=== PATIENT | female | born 1955 | race Caucasian/White ===

== ENCOUNTER → 2017-03-28 12:29 | Outpatient (CLI) | payer OTHER, SELFPAY ==
--- NOTE | 2017-03-28 | US_ITS ---
US abdomen limited: INDICATION: ITS.REASON: ABD WALL MASS ORDERING PHYSICIAN: Braydon Nelson MD PATIENT AGE: 61 years FINDINGS: There is an oval homogeneous area of isoechogenicity in the left mid abdominal wall corresponding to the palpable abnormality measuring approximately 3 x 3.4 cm and 1.2 cm in thickness. This likely consistent with a lipoma. No other significant anomalies are evident. IMPRESSION: Palpable abnormality of the left anterior abdominal wall consistent with a lipoma and could be confirmed with CT if clinically warranted.
== END ==
PROVIDERS: Family Provider Family Medicine; PCP Family Medicine; Visit Provider Family Medicine
DX: R22.2 Localized swelling, mass and lump, trunk (principal)
CPT/HCPCS: 76705

== ENCOUNTER → 2017-05-16 16:32 | Outpatient (CLI) | payer OTHER, SELFPAY ==
--- NOTE | 2017-05-16 16:35 | MM_ITS ---
MM Dig screening mamm BI w/CAD CAD Screening ORDERING PHYSICIAN : Darshan Lew MD PATIENT AGE: 61 years GENDER: Female COMPARISON: Previous mammograms: May 09, 2016 May 10, 2015 May 09, 2014 HISTORY of breast cancer right breast DCIS segmental mastectomy 2009 No hormones no new complaints . Family history. 2 Paternal grade aunts . 7 cousin relation TECHNIQUE: Standard CC and MLO images were obtained. R2 CAD reviewed. FINDINGS: Lower density breast. RIGHT BREAST:Postsurgical changes are evident at the lateral right breast 10 o'clock position. Findings here are unchanged since previous studies no new areas of concern. LEFT BREAST a small nodular density at the 8 o'clock position left breast has been previously noted Since at least 2014 and 2015 It appears incrementally larger , up to 1 mm larger today measuring just over 7 mm. Appear to be debris-filled cyst with through transmission on previous ultrasound from 2017 however with generous internal echoes and because of this I would recommend a follow-up ultrasound of this area and lobulated contour . === IMPRESSION: ====== 1. LEFT BREAST Small nodular density again seen 8 o'clock position. Incremental larger on today's mammogram.. There is been noted on previous ultrasound and mammograms dating back to 2014. Most likely debris-filled cyst which is slowly enlarging. However given its lobulated contour & significant internal echogenicity on previous ultrasound studies recommend further evaluation particularly in this higher risk patient. Recommend MLO and cc spot views with follow-up ultrasound. Left breast 2. Right breast stable no interval change. Follow up one year on right BI-RADS Category: 0 Need Additional Imaging Evaluaiton. RECOMMENDED FOLLOW-UP: IMM - IMMEDIATE FOLLOW-UP RECOMMENDED Spot view and ultrasound left breast nodule (A letter has been sent to the patient regarding results of the study.) In
--- NOTE | 2017-05-16 16:41 | XR_ITS ---
XR DEXA axial skeleton HISTORY: ITS.REASON: SCREENING ORDERING PHYSICIAN: Darshan Lew MD PATIENT AGE: 61 years COMPARISON: 07/07/2015 FINDINGS: The BMD measured at the Right femoral neck is 0.819 g/cm squared with a T score of -1.6 . This is considered Osteopenic according to the World Health Organization criteria. Fracture risk is Moderate. Treatment is advised. The L1-L4 density has a T score of 0.1 and has increased by 1% compared to the previous exam. The hip density is essentially unchanged IMPRESSION: Osteopenia with moderate fracture risk. Recommend follow-up exam April 2019
== END ==
PROVIDERS: Family Provider Family Medicine; PCP Family Medicine; Visit Provider Internal Medicine
DX: Z12.31 Encounter for screening mammogram for malignant neoplasm of breast (principal); Z78.0 Asymptomatic menopausal state; Z13.820 Encounter for screening for osteoporosis
CPT/HCPCS: 77067; 77080

== ENCOUNTER → 2017-06-05 14:19 | Outpatient (CLI) | payer OTHER, SELFPAY ==
--- NOTE | 2017-06-05 14:23 | MM_ITS ---
MM Dig mamm DX unilat LT CAD COMPARISON: Digital bilateral mammograms 05/16/2017 and 05/13/2016 INDICATION: Possible interval enlargement of asymmetric density left breast TECHNIQUE: Spot compression MLO and CC views and 90 degrees lateral view FINDINGS: The density previously described just deep and medial to the nipple left breast shows fairly well-defined borders except for a small focal irregularity. It has shown slight interval increase in size. Ultrasound performed the same date showed a hypoechoic lesion with multiple tiny internal echoes. Though the features are primarily benign on the spot mammogram views and repeat ultrasound the interval enlargement and somewhat unusual appearance on ultrasound and the patient's known contralateral breast cancer suggest that biopsy should be performed which could probably be done with ultrasound guidance. IMPRESSION: Likely benign but somewhat indeterminate asymmetric density left breast with interval enlargement BI-RADS Category: 4 Suspicious Abnormality-Biopsy Considered RECOMMENDED FOLLOW-UP: BIO - BIOPSY RECOMMENDED (A letter has been sent to the patient regarding results of the study.)
--- NOTE | 2017-06-05 14:24 | US_ITS ---
US breast LT complete COMPARISON: Ultrasound left breast 05/13/2016 HISTORY: Possible interval enlargement of asymmetric density on recent mammogram TECHNIQUE: Targeted ultrasound left breast especially lower inner quadrant FINDINGS: The previously noted oval hypoechoic lesion is again seen at the 8:00 position near the nipple showing somewhat curious tiny echogenic foci within the lesion. This could be a debris-filled cyst but in view of the contralateral breast cancer and interval increase in size biopsy is recommended which could probably be performed with ultrasound guidance IMPRESSION: Slight interval increase in size of increased hypoechoic lesion left breast, recommend follow-up biopsy
== END ==
PROVIDERS: Family Provider Family Medicine; PCP Family Medicine; Visit Provider Internal Medicine
DX: R92.8 Other abnormal and inconclusive findings on diagnostic imaging of breast (principal)
CPT/HCPCS: 76641; 77065

== ENCOUNTER 2017-06-16 10:14 | Outpatient (CLI) | payer OTHER, SELFPAY ==
[2017-06-16 10:30] VITALS: BP 150/96; PULSE 78; RESP 18; TEMP 36.8; O2SAT 99
== END 2017-06-16 10:30 | disposition home or self-care (01) ==
LOC: INF 10:14
PROVIDERS: Family Provider Family Medicine; PCP Family Medicine; Visit Provider Nurse Practitioner Obstetrics & Gynecology
DX: M85.89 Other specified disorders of bone density and structure, multiple sites (principal)
CPT/HCPCS: 96372; J0897

== ENCOUNTER → 2017-06-20 08:47 | Outpatient (POV) | payer OTHER, SELFPAY | PROVIDERS: PCP Family Medicine; Visit Provider Otolaryngology | DX: Z00.00 Encounter for general adult medical examination without abnormal findings (principal) ==

== ENCOUNTER → 2017-06-21 09:34 | Outpatient (CLI) | payer OTHER, SELFPAY ==
--- NOTE | 2017-06-21 | MM_ITS ---
US organ site (breast, US breast cyst asp, US breast LT complete MM clip placement LT COMPARISON: 06/05/2017 INDICATION: Left breast nodule ORDERING PHYSICIAN: Darshan Lew MD PATIENT AGE: 61 years Prebiopsy ultrasound: Persistent complex hypoechoic nodule is present at 8:00 measuring 8 x 4 mm. TECHNIQUE: Following obtaining informed consent using aseptic technique and local anesthesia with 1% lidocaine a 20-gauge needle was inserted under sonographic guidance into the nodule which was aspirated but not completely. The patient elected to have the nodule removed by mammotome.. The breast lesion was therefore obtained with lidocaine mixed with epinephrine. A dermotomy was then performed an 8 gauge mammotomy needle inserted. Multiple mammotome biopsies were obtained. A clip was placed following the biopsy. The patient tolerated the procedure well without evidence of any complication. Cytology: Negative for malignancy. Apicrine metaplasia compatible with benign cyst contents Pathology: Benign breast with cystic apocrine metaplasia showing papillary hyperplasia. Negative for microcalcifications. Negative for carcinoma Postbiopsy mammogram: Post biopsy changes and a clip is present in the lower inner aspect of the left breast in the area of concern where there was once a nodule. Nodule is not evident at this time IMPRESSION: Successful FNA and ultrasound-guided mammotomy biopsy of the left breast showing benign findings BI-RADS Category: 2 Benign Finding(s) RECOMMENDED FOLLOW-UP: 6M - 6 MONTH FOLLOW-UP mammogram and ultrasound per routine post biopsy protocol (A letter has been sent to the patient regarding results of the study.)
== END ==
PROVIDERS: Family Provider Family Medicine; PCP Family Medicine; Visit Provider Internal Medicine
DX: R92.8 Other abnormal and inconclusive findings on diagnostic imaging of breast (principal); N63.20 Unspecified lump in the left breast, unspecified quadrant
CPT/HCPCS: 19083; 76641; 76942; 77065; C2618

== ENCOUNTER → 2017-07-18 12:57 | Outpatient (CLI) | payer OTHER, SELFPAY ==
--- NOTE | 2017-07-18 13:25 | CT_ITS ---
CT chest w con HISTORY: Breast cancer with pulmonary nodules, follow-up pulmonary nodules, evaluate for metastatic disease ORDERING PHYSICIAN: Darshan Lew MD PATIENT AGE: 61 years COMPARISON: 01/19/2017, 07/08/2015 TECHNIQUE: Axial images obtained following the administration of 75 mL of Isovue 370 . Sagittal, and coronal reformatted images are also generated and reviewed. All CT scans at the facility use one or more dose reduction, viz: automated exposure control; ma/kV adjustment per patient size (including targeted exams where dose is matched to indication; i.e. head); or iterative reconstruction technique. FINDINGS: No mediastinal or hilar mass or adenopathy. Surgical clips once again noted in the paratracheal region. Stable bilateral noncalcified and calcified pulmonary nodules once again noted. No new nodules or effusions or infiltrates. No acute bony anomalies. Upper abdominal images are unremarkable. IMPRESSION: Overall stable CT appearance of the chest. Stable small bilateral noncalcified and calcified pulmonary nodules with no new nodules apparent
== END ==
PROVIDERS: Family Provider Family Medicine; PCP Family Medicine; Visit Provider Internal Medicine
DX: R91.8 Other nonspecific abnormal finding of lung field (principal); C50.911 Malignant neoplasm of unspecified site of right female breast; E03.9 Hypothyroidism, unspecified; R94.5 Abnormal results of liver function studies
CPT/HCPCS: 71260; Q9967

== ENCOUNTER → 2017-12-13 13:54 | Outpatient (CLI) | payer OTHER, SELFPAY ==
--- NOTE | 2017-12-13 13:56 | US_ITS ---
MM Dig mamm DX unilat LT CAD, US breast LT complete INDICATION: Follow-up breast biopsy, follow-up breast nodule ORDERING PHYSICIAN: Kathya Brooks PATIENT AGE: 62 years COMPARISON: 06/05/2017, 05/16/2017 TECHNIQUE: Standard images performed along with spot compression views and left breast ultrasound FINDINGS: Average fibroglandular tissue. Previously noted nodular density in the medial aspect of the left breast is less apparent status post biopsy with biopsy clip in this region. No malignant appearing mass or malignant appearing microcalcification is evident. On the cc spot compression view there is a 3 mm nodule slightly medial within the left breast and may correspond to a hypoechoic nodule noted on ultrasound at 12:00. Left breast ultrasound: Previously noted nodule at o'clock is not identified. This was the area of the previous biopsy. There is a 4 mm hypoechoic nodule at 12:00 probably benign.. IMPRESSION: Previously noted nodule at 8:00 no longer apparent by ultrasound. 3 mm nodule slightly medial within the left breast and may correspond to a hypoechoic nodule noted at 12:00 with benign features. Recommend resume screening mammogram in April 2018 BI-RADS Category: 2 Benign Finding(s) RECOMMENDED FOLLOW-UP: 6M - 6 MONTH FOLLOW-UP (A letter has been sent to the patient regarding results of the study.)
== END ==
PROVIDERS: PCP Family Medicine; Visit Provider Nurse Practitioner
DX: C50.919 Malignant neoplasm of unspecified site of unspecified female breast (principal)
CPT/HCPCS: 76641; 77065

== ENCOUNTER → 2018-05-12 08:21 | Outpatient (CLI) | payer OTHER, SELFPAY ==
[2018-05-12 10:25] LABS: Alanine Aminotransferase 30 U/L (12-78); Albumin Level 3.9 gm/dL (3.4-5.0); Albumin/Globulin Ratio 1.2 (1.1-1.8); Alkaline Phosphatase 113 U/L (46-116); Anion Gap 15.3 mEq/L (5-15); Aspartate Amino Transferase 20 U/L (15-37); Bilirubin,Total 0.4 mg/dL (0.2-1.0); Blood Urea Nitrogen 14 mg/dL (7-18); Calcium 8.7 mg/dL (8.5-10.1); Carbon Dioxide 30 mmol/L (21.0-32.0); Chloride 105 mmol/L (98-107); Chol/HDL Ratio 4.3 (1-3.5); Cholesterol 197 mg/dL (140-200); Estimated Glomerular Filt Rate 102 ml/min (>60); Free T4 (Free Thyroxine) 1.13 ng/dl (0.76-1.46); GFR (African American) 123 ML/MIN (>60); Globulin 3.3 gm/dl (1.3-3.2); Glucose 96 mg/dL (74-106); HDL Cholesterol 46 mg/dL (29-89); LDL Cholesterol 105 mg/dL (0-130); Potassium 4.3 mmoL/L (3.5-5.1); Sodium 146 mmol/L (136-145); Thyroid Stimulating Hormone 1.84 uIU/ml (0.358-3.740); Total Protein,Serum 7.2 gm/dL (6.4-8.2); Triglycerides 232 mg/dL (30-200); VLDL Cholesterol 46 mg/dL (0-40)
== END ==
PROVIDERS: Visit Provider Physician Assistant
DX: E03.9 Hypothyroidism, unspecified (principal); E78.5 Hyperlipidemia, unspecified; I10 Essential (primary) hypertension
CPT/HCPCS: 36415; 80053; 80061; 84439; 84443

== ENCOUNTER → 2018-05-17 08:23 | Outpatient (CLI) | payer OTHER, SELFPAY ==
--- NOTE | 2018-05-17 08:33 | XR_ITS ---
XR DEXA axial skeleton HISTORY: ITS.REASON: OSTEOPENIA ORDERING PHYSICIAN: Kathya Brooks PATIENT AGE: 62 years COMPARISON: 05/16/2017 FINDINGS: The BMD measured at the Left femoral neck is 0.844 g/cm squared with a T score of -1.4. This is considered is according to the World Health Organization criteria. Fracture risk is Moderate. Treatment is advised. IMPRESSION: Osteopenia with moderate fracture. Treatment is advised. Recommend follow-up exam April 2020
--- NOTE | 2018-05-17 08:33 | MM_ITS ---
MM Dig screening mamm BI w/CAD ORDERING PHYSICIAN : Kathya Brooks PATIENT AGE: 62 years GENDER: Female COMPARISON: Bilateral mammogram 05/16/2017, 05/13/2016. Left mammogram from 12/13/2017 HISTORY: Routine: SCREENING Right segmental mastectomy 2009. No new complaints. No hormones. Family history 7 cousins & 2 paternal great aunts with breast cancer TECHNIQUE: Standard CC and MLO images were obtained. R2 CAD reviewed. FINDINGS: Lower density breast. Postsurgical changes RIGHT BREAST:No new areas of significant concern. Postsurgical features laterabreast 9:00. Clip from previous percutaneous biopsy at 12:00 also noted Again we see the multiple benign round dense calcifications the right breast few small scattered punctate benign-appearing probable vascular calcifications superior right breast, which can be followed in one year LEFT BREAST:No new areas significant concern Stable small area of nodularity at the medial left breast. Small metallic MicroMark or from previous percutaneous biopsy at the medial left breast IMPRESSION: No new areas of significant concern Recommend bilateral follow-up in one year BI-RADS Category: 2 Benign Finding(s) RECOMMENDED FOLLOW-UP: 1YR 1 YEAR FOLLOW-UP (A letter has been sent to the patient regarding results of the study.)
== END ==
PROVIDERS: PCP Family Medicine; Visit Provider Nurse Practitioner
DX: Z12.31 Encounter for screening mammogram for malignant neoplasm of breast (principal); Z85.3 Personal history of malignant neoplasm of breast; Z13.820 Encounter for screening for osteoporosis; M85.80 Other specified disorders of bone density and structure, unspecified site; R91.8 Other nonspecific abnormal finding of lung field
CPT/HCPCS: 77067; 77080

== ENCOUNTER → 2018-05-28 08:07 | Outpatient (CLI) | payer OTHER, SELFPAY | PROVIDERS: PCP Family Medicine; Visit Provider Family Medicine | DX: R07.9 Chest pain, unspecified (principal) | CPT/HCPCS: 93017 ==

== ENCOUNTER → 2018-06-06 11:12 | Outpatient (CLI) | payer OTHER, SELFPAY ==
--- NOTE | 2018-06-06 11:21 | XR_ITS ---
XR finger RT min 2V CLINICAL INDICATION: ITS.REASON: INFECTED FINGER ORDERING PHYSICIAN: Tamy Lock PATIENT AGE: 62 years Comparison: None FINDINGS: No bony or joint abnormality. No soft tissue gas or radiopaque foreign body IMPRESSION: Negative left index finger
== END ==
PROVIDERS: PCP Family Medicine; Visit Provider Nurse Practitioner Family
DX: L08.9 Local infection of the skin and subcutaneous tissue, unspecified (principal)
CPT/HCPCS: 73140

== ENCOUNTER → 2018-06-15 06:19 | Outpatient (CLI) | payer OTHER, SELFPAY ==
--- NOTE | 2018-06-15 06:23 | NM_ITS ---
CARDIOLITE SPECT MYOCARDIAL PERFUSION [facility], REST AND STRESS: History: Hypertension, family history, shortness of breath, palpitations, fatigue and abnormal EKG. Procedure: Patient exercised on [place] protocol 9 minutes, resting heart rate was 70 bpm resting blood pressure 160/93, with exercise maximum heart rate achieved was 1 45 bpm which is greater than 85% of the maximum predicted heart rate and a blood pressure was 190/98. Test was stopped due to shortness of breath patient denied any complained of chest pain. Patient has good exercise capacity achieved 10.1mets of workload on treadmill, the blood pressure response to exercise was adequate. Electrocardiogram: Resting electrocardiogram showed sinus rhythm nonspecific ST-T changes, with exercise occasional premature ventricular complexes seen, additional 1.[address] segment depression noted from the baseline EKG more pronounced in the recovery. The EKG portion of the exercise Myoview is positive for ischemia. Cardiac stress and resting SPECT images: Cardiac stress and resting SPECT images were obtained using technetium 99 Myoview 30.9 mCi at rest and 10.4 mCi at rest, gated SPECT further analysis of segmental wall motion and calculation of the ejection fraction also done. Cardiac stress and rest SPECT images show a mild fixed defect in the anterior wall with normal contractility gated SPECT is likely secondary to soft tissue attenuation from breast, no reversible ischemia seen. Computer derived ejection fraction is 52% with no regional wall motion abnormality, right ventricle is mildly enlarged with normal contractility. Conclusion: 1. The EKG portion of the exercise Myoview is positive for ischemia, patient has good exercise capacity achieved 10.1mets of workload on treadmill, the blood pressure response to exercise was adequate, there was no exercise-induced chest discomfort. Test was stopped due to shortness of breath. 2. No scintigraphic evidence of reversible ischemia seen at this level of exercise, computer derived ejection fraction is 52% with no regional wall motion abnormality, right ventricle is mildly enlarged with normal contractility.
--- NOTE | 2018-06-15 06:23 | CA_ITS ---
PROCEDURE: 2-D M-mode and color Doppler study INDICATIONS FOR THE TEST: Chest pain COPD Heart Murmur Tobacco Smoking Palpitations+ Fatigue Syncope Edema+ Hypertension+Diabetes Mellitus Rheumatic Fever SOB+KILLIAN Obesity Hyperlipidemia+ Family History HD Additional History Radiation, breast cancer, thryoidectomy, chemo PATIENT INFORMATION HEIGHT: 60 WEIGHT: 175 GENDER: Female B/P: 159/95 2-D/M-MODE INTERPRETATION: 2-D MEASUREMENTS OBSERVED VALUES IN CMS Right Ventricular Dimension (RVDd) 2.3 Interventricular Septum (Thickness)(IVsd) 0.9 Left Ventricular Internal Dimensions(LVIDd) 4.3 Left Ventricular Posterior Wall (Thickness)(LVPWd) 0.9 Aortic Root 2.7 Aortic Cusp Separation 2.1 Left Atrial Dimensions (LAD) 3.1 2D 1. Left atrium is normal size, left ventricle is normal size, there is no concentric left ventricular hypertrophy, visually estimated ejection fraction 55% with no regional wall motion abnormality. 2. The right atrium and right ventricle are mildly enlarged with normal contractility. 3. The aortic valve is minimally thickened and fibrosed. 4. The mitral and tricuspid valve leaflets are minimally thickened. 5. The pulmonic valve is poorly visualized. 6. No significant pericardial effusion noted. DOPPLER INTERROGATION: Doppler interrogation of the aortic, mitral and tricuspid valvular presence of mild mitral and moderate tricuspid regurgitation, calculated right ventricular systolic pressure 35 mm of mercury consistent with mild pulmonary hypertension. Grade 1 diastolic dysfunction seen without tissue Doppler evidence of raised left atrial pressure. CONCLUSION: 1. Normal left ventricular size, preserved left ventricular systolic function, visually estimated ejection fraction 55% with no regional wall motion abnormality, grade 1 diastolic dysfunction seen without tissue Doppler evidence of raised left atrial pressure. 2. Mildly enlarged right ventricle with normal contractility. 3. Mild mitral and tricuspid regurgitation 4. No significant pericardial effusion noted.
--- NOTE | 2018-06-15 08:39 | HMH.ITSHM ---
Current Home Medications as stated by this patient Erika Burgos or professional healthcare representative. []SYNTHROID METOPROLOL ASA PEPCID CENTRUM BIOTIN CLARITIN
== END ==
PROVIDERS: PCP Family Medicine; Visit Provider Physician Assistant
DX: R94.39 Abnormal result of other cardiovascular function study (principal); R00.2 Palpitations; R06.02 Shortness of breath; E78.5 Hyperlipidemia, unspecified; Z92.3 Personal history of irradiation
CPT/HCPCS: 78452; 93017; 93306; A9502

== ENCOUNTER → 2018-07-09 12:50 | Outpatient (CLI) | payer OTHER, SELFPAY ==
--- NOTE | 2018-07-09 12:52 | CT_ITS ---
CT angio chest HISTORY: Shortness of air ITS.REASON: PE Protocol ORDERING PHYSICIAN: Graham Beckford MD PATIENT AGE: 62 years COMPARISON: None TECHNIQUE: Axial images obtained following the administration of 75 mL of Optiray 350 . Sagittal, and coronal reformatted images are also generated and reviewed. All CT scans at the facility use one or more dose reduction, viz: automated exposure control, ma/kV adjustment per patient size (including targeted exams where dose is matched to indication, i.e. head), or iterative reconstruction technique. FINDINGS: No evidence of pulmonary embolus. No evidence of aortic aneurysm. No mediastinal or hilar mass or adenopathy. There is a 5 x 4 mm nodule in the region of the right minor fissure. This is slightly larger compared to the previous exam previously approximately 4 x 3 mm. There is a subpleural 4 mm nodule in the right lower lobe posterior laterally stable. There are atelectatic changes in the lung bases. 4 mm subpleural nodule present in the left upper lobe posteriorly.. No lobar consolidation or collapse. No effusions. No acute bony findings. IMPRESSION: 1. No evidence of pulmonary mass. 2. Scattered small bilateral pulmonary nodules. The nodular opacity in the right minor fissure is slightly more prominent. The location and appearance would suggest a small fissural lymph node. Follow-up may confirm stability.
== END ==
PROVIDERS: PCP Family Medicine; Visit Provider Internal Medicine Cardiovascular Disease
DX: R00.2 Palpitations (principal); R06.02 Shortness of breath; Z92.3 Personal history of irradiation
CPT/HCPCS: 71275; Q9967

== ENCOUNTER → 2019-01-23 12:51 | Outpatient (CLI) | payer OTHER, SELFPAY ==
--- NOTE | 2019-01-23 13:00 | CT_ITS ---
PROCEDURE: CT CHEST W CON CLINCAL INDICATION: PULMONARY NODULES Follow-up pulmonary nodule, history of breast cancer COMPARISON: CHESTW CT chest w con from 07/18/[address] angio chest from 07/09/2018 TECHNIQUE: IV Contrast: 75ml Optiray 350 Axial images obtained with sagittal and coronal reformats. All CT scans at the facility use one or more dose reduction, viz: automated exposure control, ma/kV adjustment per patient size (including targeted exams where dose is matched to indication, i.e. head), or iterative reconstruction technique. FINDINGS: HEART,AORTA,PULMONARY ARTERIES Unremarkable. MEDIASTINAL AND HILAR STRUCTURES: ARE FEW SMALL MEDIASTINAL LYMPH NODES PRESENT WHICH ARE NOT SIGNIFICANTLY CHANGED. NO HILAR MASS OR HILAR ADENOPATHY. LUNGS: 5 MM NONCALCIFIED NODULES PRESENT IN THE RIGHT MIDDLE LOBE AT THE MINOR FISSURE UNCHANGED. THERE IS A SUBPLEURAL 4 MM NODULE IN THE RIGHT LUNG BASE POSTERIOR LATERALLY. THIS IS SLIGHTLY DECREASED IN SIZE. CALCIFIED GRANULOMAS PRESENT IN THE LEFT LOWER LOBE. NO NEW NODULES ARE EVIDENT. PLEURAL SPACES: No significant effusion. No evidence of pneumothorax. BONY STRUCTURES: THE LYMPH NODES: No enlarged lymph nodes evident. UPPER ABDOMEN: Unremarkable. ADDITIONAL FINDINGS: No other significant abnormalities. IMPRESSION: OVERALL STABLE CT APPEARANCE OF THE CHEST. NO NEW NODULES APPARENT. Dictated by: Reed Rogers MD 01/25/2019 05:40 Electronically signed by Reed Rogers MD in [facility] 01/25/2019 11:32
[2019-01-23 13:14] LABS: Blood Urea Nitrogen 20 mg/dL (7-18); Creatinine,Serum 0.75 mg/dL (0.55-1.02); Estimated Glomerular Filt Rate 79 ml/min (>60); GFR (African American) 95 ML/MIN (>60)
== END ==
PROVIDERS: PCP Family Medicine; Visit Provider Nurse Practitioner
DX: R91.1 Solitary pulmonary nodule (principal); Z85.3 Personal history of malignant neoplasm of breast
CPT/HCPCS: 36415; 71260; 82565; 84520; Q9967

== ENCOUNTER → 2019-03-23 09:18 | Outpatient (CLI) | payer OTHER, SELFPAY ==
[2019-03-23 10:10] LABS: Alanine Aminotransferase 34 U/L (12-78); Albumin Level 4.2 gm/dL (3.4-5.0); Alkaline Phosphatase 110 U/L (46-116); Aspartate Amino Transferase 26 U/L (15-37); Bilirubin,Direct 0.1 mg/dL (0.0-0.2); Bilirubin,Indirect 0.4 mg/dL (0.0-0.9); Bilirubin,Total 0.5 mg/dL (0.2-1.0); Chol/HDL Ratio 4.1 (1-3.5); Cholesterol 212 mg/dL (140-200); HDL Cholesterol 52 mg/dL (29-89); LDL Cholesterol 116 mg/dL (0-130); Triglycerides 221 mg/dL (30-200); VLDL Cholesterol 44 mg/dL (0-40)
== END ==
PROVIDERS: Visit Provider Internal Medicine Cardiovascular Disease
DX: E78.2 Mixed hyperlipidemia (principal); I10 Essential (primary) hypertension
CPT/HCPCS: 36415; 80061; 80076

== ENCOUNTER → 2019-05-20 07:49 | Outpatient (CLI) | payer OTHER, SELFPAY ==
--- NOTE | 2019-05-20 07:49 | MM_ITS ---
PROCEDURE: MM DIG SCREENING MAMM BI W/CAD Digital Breast Tomosynthesis Included CLINICAL INDICATION: screening xmg COMPARISON: CLIPLT MM clip placement LT from 06/21/2017 DXLT MM Dig mamm DX unilat LT CAD from 12/13/2017 [facility] MM Dig screening mamm BI w/CAD from 05/17/2018 TECHNIQUE: Standard CC and MLO images and 3D Tomosynthesis was obtained. R2 CAD reviewed. FINDINGS: The breasts are of average density. A metallic stereotactic biopsy clip is seen in the right breast 12 o'clock and in the superior medial left breast. Multiple benign appearing calcifications are seen bilaterally. A cluster of 3 indeterminate morphology microcalcifications are seen as denoted by computer-aided detection in the medial right breast. Six-month follow-up exam is recommended. There are no other new findings suspicious for malignancy. IMPRESSION: BI-RAD Category: 3 Probably Benign Finding Short Term Follow-up FOLLOW-UP: 6M 6Month Follow-up (A letter has been sent to the patient regarding results of the study.) Dictated by: Teodoro Good 05/20/2019 18:25 Electronically signed by Teodoro Good in [facility] 05/20/2019 18:25
== END ==
PROVIDERS: PCP Family Medicine; Referring Provider Internal Medicine Medical Oncology; Visit Provider Nurse Practitioner Obstetrics & Gynecology
DX: Z12.31 Encounter for screening mammogram for malignant neoplasm of breast (principal)
CPT/HCPCS: 77063; 77067

== ENCOUNTER → 2019-09-09 14:19 | Outpatient (CLI) | payer OTHER, SELFPAY ==
--- NOTE | 2019-09-09 14:28 | MM_ITS ---
PROCEDURE: MM DIG MAMM BI DX W/CAD Digital Breast Tomosynthesis Included CLINICAL INDICATION: ABN MAMM Follow-up calcifications COMPARISON: DMSB DIG MAMM-SCREEN CLEO from 05/11/2015 DXLT MM Dig mamm DX unilat LT CAD from 12/13/2017 [facility] MM Dig screening mamm BI w/CAD from 05/17/2018 MM DIG SCREENING MAMM BI W/CAD from 05/20/2019 TECHNIQUE: Standard CC and MLO images and 3D Tomosynthesis was obtained. R2 CAD reviewed. FINDINGS: Standard images performed along with Mag views of the right breast. There are scattered benign-appearing calcifications. Post biopsy changes involving the skin in the outer aspect of the right breast with a clip present in the central aspect of the right breast. Small cluster of calcifications noted medially not significantly changed. No suspicious calcifications evident. Recommend resume screening April 2020 IMPRESSION: BI-RAD Category: 2 Benign Finding(s) FOLLOW-UP: 6M 6Month Follow-up (A letter has been sent to the patient regarding results of the study.) Dictated by: Reed Rogers MD 09/10/2019 14:38 Electronically signed by Reed Rogers MD in [facility] 09/10/2019 14:38
== END ==
PROVIDERS: PCP Family Medicine; Visit Provider Internal Medicine Medical Oncology
DX: R92.8 Other abnormal and inconclusive findings on diagnostic imaging of breast (principal)
CPT/HCPCS: 77062; 77066; G0279

== ENCOUNTER → 2019-09-10 07:14 | Outpatient (CLI) | payer OTHER, SELFPAY ==
[2019-09-10 08:48] LABS: Alanine Aminotransferase 33 U/L (12-78); Albumin Level 4.3 g/dl (3.5-5.0); Albumin/Globulin Ratio 1.7 (1.1-1.8); Alkaline Phosphatase 115 U/L (38-126); Anion Gap 11.8 mEq/L (5-15); Aspartate Amino Transferase 35 U/L (14-36); Bilirubin,Total 0.5 mg/dl (0.2-1.3); Blood Urea Nitrogen 19 mg/dl (7-17); Calcium 9.4 mg/dl (8.4-10.2); Carbon Dioxide 31 mmol/L (22.0-30.0); Chloride 103 mmol/L (98-107); Chol/HDL Ratio 4.4 (1-3.5); Cholesterol 222 mg/dl (140-200); Estimated Glomerular Filt Rate 102 ml/min (>60); GFR (African American) 123 ML/MIN (>60); Globulin 2.6 g/dL (1.3-3.2); Glucose 94 mg/dl (74-100); HDL Cholesterol 50 mg/dl (40-60); Potassium 4.8 mmoL/L (3.5-5.1); Sodium 141 mmol/L (136-145); Total Protein,Serum 6.9 g/dl (6.3-8.2); Triglycerides 308 mg/dl (30-150); VLDL Cholesterol 62 mg/dL (0-40)
[2019-09-10 08:59] LABS: Direct LDL Cholesterol 88.18 mg/dL (100-129)
[2019-09-10 09:05] LABS: Free T4 (Free Thyroxine) 1.26 ng/dl (0.78-2.19)
[2019-09-10 09:19] LABS: Thyroid Stimulating Hormone 5.04 uIU/mL (0.465-4.68)
== END ==
PROVIDERS: Visit Provider Physician Assistant
DX: E03.9 Hypothyroidism, unspecified (principal); E78.5 Hyperlipidemia, unspecified; I10 Essential (primary) hypertension
CPT/HCPCS: 36415; 80053; 80061; 84439; 84443

== ENCOUNTER → 2019-09-11 16:40 | Outpatient (CLI) | payer OTHER, SELFPAY ==
--- NOTE | 2019-09-11 16:43 | XR_ITS ---
PROCEDURE: XR KNEE RT 4V CLINICAL INDICATION: R ANTERIOR KNEE PAIN COMPARISON: No exams were available for comparison FINDINGS: No fracture or dislocation. No lytic or blastic change. There is normal mineralization. The joint spaces are well-preserved. No significant degenerative/arthritic changes. No erosive changes evident. Other findings:Nonspecific small soft tissue calcification noted in the popliteal region laterally IMPRESSION: No acute findings. Dictated by: Reed Rogers MD 09/11/2019 17:01 Electronically signed by Reed Rogers MD in [facility] 09/11/2019 17:01
== END ==
PROVIDERS: PCP Physician Assistant; Visit Provider Physician Assistant
DX: M25.561 Pain in right knee (principal)
CPT/HCPCS: 73564

== ENCOUNTER → 2020-01-23 16:49 | Outpatient (CLI) | payer OTHER, SELFPAY ==
[2020-01-23 17:15] LABS: Blood Urea Nitrogen 19 mg/dl (7-17); Estimated Glomerular Filt Rate 85 ml/min (>60); GFR (African American) 103 ML/MIN (>60)
== END ==
PROVIDERS: Visit Provider Internal Medicine Medical Oncology
DX: Z01.818 Encounter for other preprocedural examination (principal)
CPT/HCPCS: 36415; 82565; 84520

== ENCOUNTER → 2020-01-24 12:53 | Outpatient (CLI) | payer OTHER, SELFPAY ==
--- NOTE | 2020-01-24 12:56 | CT_ITS ---
PROCEDURE: CT CHEST W CON CLINCAL INDICATION: F/U PULMONARY NODULES f/u lung nodule hx of breast ca COMPARISON: CT CT CHEST W CON from 01/23/2019 TECHNIQUE: IV Contrast: 75ml Isovue 370 Axial images obtained with sagittal and coronal reformats. All CT scans at the facility use one or more dose reduction, viz: automated exposure control, ma/kV adjustment per patient size (including targeted exams where dose is matched to indication, i.e. head), or iterative reconstruction technique. FINDINGS: HEART AND MEDIASTINAL STRUCTURES: Unremarkable. No change small anterior mediastinal lymph node. LUNGS AND PLEURAL SPACES: No change in the scattered small pulmonary nodules including 3 mm nodule right upper lobe series 3, image 16, 5 mm nodule along the right minor fissure image 33, 5 mm subpleural nodule right lower lobe image 52, 3 mm noncalcified nodule left lower lobe image 50. 4 mm subpleural nodule left upper lobe image 19. Calcified nodules are also present. No new nodules are apparent. No effusions or infiltrates. BONY STRUCTURES: No acute bony abnormalities apparent. UPPER ABDOMEN: Unremarkable. ADDITIONAL FINDINGS: No other significant abnormalities. IMPRESSION: Stable CT appearance of the chest. No change in the small noncalcified pulmonary nodules. Dictated by: Reed Rogers MD 01/26/2020 10:03 Reed Rogers MD in [facility] 01/26/2020 10:03
== END ==
PROVIDERS: PCP Family Medicine; Visit Provider Internal Medicine Medical Oncology
DX: Z85.3 Personal history of malignant neoplasm of breast (principal); R91.8 Other nonspecific abnormal finding of lung field
CPT/HCPCS: 71260; Q9967

== ENCOUNTER → 2020-02-29 07:52 | Outpatient (CLI) | payer OTHER, SELFPAY ==
[2020-02-29 08:56] LABS: Chol/HDL Ratio 4.7 (1-3.5); Cholesterol 222 mg/dl (140-200); HDL Cholesterol 47 mg/dl (40-60); Triglycerides 270 mg/dl (30-150); VLDL Cholesterol 54 mg/dL (0-40)
[2020-02-29 09:07] LABS: Direct LDL Cholesterol 84.93 mg/dL (100-129)
[2020-02-29 09:12] LABS: Free T4 (Free Thyroxine) 1.42 ng/dl (0.78-2.19)
[2020-02-29 09:26] LABS: Thyroid Stimulating Hormone 3.38 uIU/mL (0.465-4.68)
== END ==
PROVIDERS: Visit Provider Nurse Practitioner Family
DX: E03.9 Hypothyroidism, unspecified (principal); E78.5 Hyperlipidemia, unspecified
CPT/HCPCS: 36415; 80061; 84439; 84443

== ENCOUNTER → 2020-03-13 12:51 | Outpatient (CLI) | payer OTHER, SELFPAY ==
--- NOTE | 2020-03-13 13:27 | MM_ITS ---
PROCEDURE: MM DIG SCREENING MAMM BI W/CAD Digital Breast Tomosynthesis Included CLINICAL INDICATION: screening xmg There is a history of breast cancer in the patient's sister diagnosed at age 49 and in the patient's cousins. The patient has had previous lumpectomy right breast for malignancy. There has been a previous biopsy left breast for benign disease. COMPARISON: [facility] MM Dig screening mamm BI w/CAD from 05/17/2018 MG MM DIG SCREENING MAMM BI W/CAD from 05/20/2019 MG MM DIG MAMM BI DX W/CAD from 09/09/2019 TECHNIQUE: Standard CC and MLO images and 3D Tomosynthesis was obtained. R2 CAD reviewed. FINDINGS: Scattered fibroglandular densities are seen in both breasts on a background of fatty breast parenchyma. There is minimal post lumpectomy scarring right breast. There are scattered benign-appearing microcalcifications in each breast. There is a biopsy clip left breast. There is no suspicious lesion in either breast and no suspicious microcalcifications. IMPRESSION: Fibrofatty parenchyma with minimal post lumpectomy scarring right breast and no suspicious lesions seen BI-RAD Category: 2 Benign Finding(s) FOLLOW-UP: 1YR 1 Year Follow-up (A letter has been sent to the patient regarding results of the study.) Dictated by: Dr. Mazin Armstrong MD 03/18/2020 11:24 Dr. Mazin Armstrong MD in [facility] 03/18/2020 11:24
== END ==
PROVIDERS: PCP Psychiatry & Neurology Sleep Medicine; Visit Provider Nurse Practitioner Obstetrics & Gynecology
DX: Z12.31 Encounter for screening mammogram for malignant neoplasm of breast (principal)
CPT/HCPCS: 77063; 77067

== ENCOUNTER → 2020-03-19 17:38 | Outpatient (CLI) | payer OTHER, SELFPAY ==
[2020-03-19 17:49] LABS: Basophils # 0.1 K/mm3 (0-0.2); Basophils % 1.2 % (0.1-2.0); Eosinophils # 0.2 K/mm3 (0.0-0.4); Eosinophils % 3.3 % (0.1-12.0); Hematocrit 47.4 % (37.0-47.0); Hemoglobin 15.4 g/dL (12.2-16.2); Lymphocytes # 3.2 K/mm3 (0.7-4.5); Lymphocytes % 56.4 % (10-50); Mean Corpuscular HGB Conc 32.4 g/dL (31.8-35.4); Mean Corpuscular Hemoglobin 30.5 pg (27.0-31.2); Mean Corpuscular Volume 94.3 fl (81-99); Mean Platelet Volume 7.7 fl (7.4-10.4); Monocytes # 0.4 K/mm3 (0.1-1.0); Monocytes % 6.3 % (1.7-9.3); Neutrophils # 1.8 K/mm3 (1.8-7.8); Neutrophils % 32.9 % (37.0-80.0); Platelet Count 245 K/mm3 (142-424); Red Blood Count 5.03 M/mm3 (4.20-5.40); Red Cell Distribution Width 13.6 % (11.5-17.5); White Blood Count 5.6 K/mm3 (4.8-10.8)
[2020-03-19 17:54] LABS: MANUAL DIFFERENTIAL MANUAL DIFFERENTIAL (MANUAL DIFF)
[2020-03-19 18:19] LABS: Eosinophils % 3 % (0-3); Lymphocytes % 55 % (10-50); Monocytes % 6 % (2-9); Neutrophils % 36 % (42-76); Platelet Estimate Normal; RBC Morphology Normal; Total Cells Counted 100
== END ==
PROVIDERS: Visit Provider Internal Medicine Medical Oncology
DX: D72.819 Decreased white blood cell count, unspecified (principal)
CPT/HCPCS: 36415; 85007; 85025

== ENCOUNTER → 2020-09-16 07:24 | Outpatient (CLI) | payer OTHER, SELFPAY ==
[2020-09-16 08:01] LABS: Basophils # 0.1 K/mm3 (0-0.2); Basophils % 1.4 % (0.1-2.0); Eosinophils # 0.1 K/mm3 (0.0-0.4); Eosinophils % 2.7 % (0.1-12.0); Hematocrit 45.8 % (37.0-47.0); Lymphocytes # 2.4 K/mm3 (0.7-4.5); Lymphocytes % 52.9 % (10-50); Mean Corpuscular HGB Conc 32.7 g/dL (31.8-35.4); Mean Corpuscular Hemoglobin 30.1 pg (27.0-31.2); Mean Corpuscular Volume 92.1 fl (81-99); Mean Platelet Volume 8.1 fl (7.4-10.4); Monocytes # 0.3 K/mm3 (0.1-1.0); Monocytes % 7.3 % (1.7-9.3); Neutrophils # 1.6 K/mm3 (1.8-7.8); Neutrophils % 35.7 % (37.0-80.0); Platelet Count 242 K/mm3 (142-424); Red Blood Count 4.98 M/mm3 (4.20-5.40); Red Cell Distribution Width 13.6 % (11.5-17.5); White Blood Count 4.6 K/mm3 (4.8-10.8)
[2020-09-16 08:18] LABS: MANUAL DIFFERENTIAL MANUAL DIFFERENTIAL (MANUAL DIFF)
[2020-09-16 08:27] LABS: Cholesterol 203 mg/dl (140-200); HDL Cholesterol 41 mg/dl (40-60); Triglycerides 325 mg/dl (30-150); VLDL Cholesterol 65 mg/dL (0-40)
[2020-09-16 08:28] LABS: Alanine Aminotransferase 38 U/L (12-78); Albumin Level 4.3 g/dl (3.5-5.0); Albumin/Globulin Ratio 1.7 (1.1-1.8); Alkaline Phosphatase 135 U/L (38-126); Aspartate Amino Transferase 33 U/L (14-36); Bilirubin,Total 0.7 mg/dl (0.2-1.3); Blood Urea Nitrogen 18 mg/dl (7-17); Calcium 9.1 mg/dl (8.4-10.2); Carbon Dioxide 29 mmol/L (22.0-30.0); Chloride 103 mmol/L (98-107); Estimated Glomerular Filt Rate 101 ml/min (>60); GFR (African American) 123 ML/MIN (>60); Globulin 2.5 g/dL (1.3-3.2); Glucose 97 mg/dl (74-100); Sodium 141 mmol/L (136-145); Total Protein,Serum 6.8 g/dl (6.3-8.2)
[2020-09-16 08:38] LABS: Direct LDL Cholesterol 76.99 mg/dL (100-129)
[2020-09-16 08:48] LABS: Eosinophils % 3 % (0-3); Lymphocytes % 50 % (10-50); Monocytes % 7 % (2-9); Neutrophils % 40 % (42-76); Total Cells Counted 100
[2020-09-16 08:49] LABS: Hypochromasia 3+; Platelet Estimate Normal
[2020-09-16 08:59] LABS: Thyroid Stimulating Hormone 0.02 uIU/mL (0.465-4.68)
== END ==
PROVIDERS: Internal Medicine Medical Oncology; Visit Provider Family Medicine
DX: E03.9 Hypothyroidism, unspecified (principal); E78.5 Hyperlipidemia, unspecified; Z85.3 Personal history of malignant neoplasm of breast
CPT/HCPCS: 36415; 80053; 80061; 84443; 85007; 85025

== ENCOUNTER → 2020-11-17 06:58 | Outpatient (CLI) | payer SELFPAY ==
--- NOTE | 2020-11-17 06:59 | CT_ITS ---
PROCEDURE: CT HEART W CALCIUM SCORE CLINICAL HISTORY: screening COMPARISON: CT CT CHEST W CON from 01/23/2019 TECHNIQUE: Axial images obtained with sagittal and coronal reformats. All CT scans at the facility use one or more dose reduction, viz: automated exposure control, ma/kV adjustment per patient size (including targeted exams where dose is matched to indication, i.e. head), or iterative reconstruction technique. FINDINGS: Coronary artery calcium score is 0. No identifiable calcific atherosclerotic plaque with very low cardiovascular disease risk There is a stable 5 mm nodular opacity in the right middle lobe. Atelectatic or fibrotic changes are present in the right lung base posteriorly. Calcified granuloma is present in the left lower lobe. IMPRESSION: No identifiable calcific atherosclerotic plaque with very low cardiovascular disease risk Dictated by: Reed Rogers MD 11/18/2020 07:43 Reed Rogers MD in [facility] 11/18/2020 07:43
== END ==
PROVIDERS: PCP Family Medicine; Visit Provider Internal Medicine Cardiovascular Disease
DX: Z13.6 Encounter for screening for cardiovascular disorders (principal); E11.9 Type 2 diabetes mellitus without complications
CPT/HCPCS: 75571

== ENCOUNTER → 2021-01-28 14:51 | Outpatient (CLI) | payer OTHER, SELFPAY ==
[2021-01-28 16:31] LABS: Blood Urea Nitrogen 19 mg/dl (7-17); Estimated Glomerular Filt Rate 125 ml/min (>60); GFR (African American) 151 ML/MIN (>60)
== END ==
PROVIDERS: Visit Provider Internal Medicine Medical Oncology
DX: Z01.812 Encounter for preprocedural laboratory examination (principal)
CPT/HCPCS: 36415; 82565; 84520

== ENCOUNTER → 2021-01-29 12:49 | Outpatient (CLI) | payer OTHER, SELFPAY ==
--- NOTE | 2021-01-29 12:52 | CT_ITS ---
PROCEDURE INFORMATION: Exam: CT Chest With Contrast; Diagnostic Exam date and time: 01/29/2021 12:52 PM Age: 65 years old Clinical indication: Abnormal findings; Other: Pulmonary nodule; Additional info: F/u pulmonary nodule, h/o breast CA TECHNIQUE: Imaging protocol: Diagnostic computed tomography of the chest with contrast. Radiation optimization: All CT scans at this facility use at least one of these dose optimization techniques: automated exposure control; mA and/or kV adjustment per patient size (includes targeted exams where dose is matched to clinical indication); or iterative reconstruction. Contrast material: ISOVUE; Contrast volume: 75 ml; Contrast route: IV; COMPARISON: CT CHEST W CON 01/24/2020 1:04 PM FINDINGS: Lungs: There is a 3 mm nodule in the right upper lobe on axial image 20, stable. There is a 3.7 mm nodule in the right upper lobe on axial image 37, decreased in size. There is a 5 mm subpleural nodule in the right lower lobe on axial image 52, stable. There is a 2.8 mm nodule in the left lower lobe on axial image 50, stable. There is a 4 mm subpleural nodule in the left upper lobe on axial image 20, stable. No consolidation. Pleural spaces: Unremarkable. No pneumothorax. No pleural effusion. Heart: Unremarkable. No cardiomegaly. No pericardial effusion. Aorta: Unremarkable. No aortic aneurysm. Lymph nodes: Calcified lymph nodes noted in the left hilum. There are several calcified granulomas left lung. Bones/joints: Unremarkable. No acute fracture. Soft tissues: Unremarkable. IMPRESSION: Stable appearance of multiple pulmonary nodules in both lungs as described. Fleischner Society follow up recommendations for incidental nodules are not indicated. Follow up per the patient's medical condition.
== END ==
PROVIDERS: PCP Family Medicine; Visit Provider Internal Medicine Medical Oncology
DX: R91.1 Solitary pulmonary nodule (principal)
CPT/HCPCS: 71260; Q9967

== ENCOUNTER → 2021-03-16 16:54 | Outpatient (CLI) | payer OTHER, SELFPAY ==
--- NOTE | 2021-03-16 16:59 | MM_ITS ---
PROCEDURE INFORMATION: Exam: MG Bilateral Screening 3D Mammography Exam date and time: 03/16/2021 4:59 PM Age: 65 years old Clinical indication: Encounter for screening mammogram for malignant neoplasm of breast; personal history of right breast cancer.Positive family history of breast cancer: Sister TECHNIQUE: Imaging protocol: Bilateral Screening tomosynthesis and 2D mammography including computer-aided detection (CAD) when performed. COMPARISON: 1. MG MM DIG SCREENING MAMM BI W/CAD 03/13/2020 1:08 PM 2. MG MM DIG MAMM BI DX W/CAD 09/09/2019 2:44 PM FINDINGS: MAMMOGRAPHY: Breast composition: The breast tissue is composed of scattered areas of fibroglandular density. Mass: None. Architectural distortion: Stable post operative architectural distortion in the right lateral breast due to prior lumpectomy for carcinoma. Calcifications: No suspicious calcifications. Asymmetric density: None. Skin thickening: None. Axillary adenopathy: None. IMPRESSION: No mammographic evidence of malignancy. Annual screening is recommended unless otherwise clinically indicated. ASSESSMENT: BI-RADS Category 2: Benign
== END ==
PROVIDERS: PCP Family Medicine; Visit Provider Internal Medicine Medical Oncology
DX: Z12.31 Encounter for screening mammogram for malignant neoplasm of breast (principal)
CPT/HCPCS: 77063; 77067

== ENCOUNTER → 2021-03-18 07:12 | Outpatient (CLI) | payer OTHER, SELFPAY ==
[2021-03-18 08:42] LABS: Basophils # 0.1 K/mm3 (0-0.2); Basophils % 1.3 % (0.1-2.0); Eosinophils # 0.1 K/mm3 (0.0-0.4); Eosinophils % 1.3 % (0.1-12.0); Hemoglobin 15.5 g/dL (12.2-16.2); Lymphocytes # 2.5 K/mm3 (0.7-4.5); Lymphocytes % 50.2 % (10-50); Mean Corpuscular HGB Conc 32.9 g/dL (31.8-35.4); Monocytes # 0.4 K/mm3 (0.1-1.0); Monocytes % 7.7 % (1.7-9.3); Neutrophils % 39.5 % (37.0-80.0); Platelet Count 316 K/mm3 (142-424); Red Cell Distribution Width 13.4 % (11.5-17.5)
[2021-03-18 08:44] LABS: MANUAL DIFFERENTIAL MANUAL DIFFERENTIAL (MANUAL DIFF)
[2021-03-18 09:27] LABS: Alanine Aminotransferase 46 U/L (12-78); Albumin Level 4.6 g/dl (3.5-5.0); Albumin/Globulin Ratio 1.9 (1.1-1.8); Alkaline Phosphatase 109 U/L (38-126); Anion Gap 13.6 mEq/L (5-15); Aspartate Amino Transferase 41 U/L (14-36); Bilirubin,Total 0.8 mg/dl (0.2-1.3); Blood Urea Nitrogen 14 mg/dl (7-17); Calcium 9.4 mg/dl (8.4-10.2); Carbon Dioxide 29 mmol/L (22.0-30.0); Chloride 102 mmol/L (98-107); Chol/HDL Ratio 5.1 (1-3.5); Cholesterol 204 mg/dl (140-200); Estimated Glomerular Filt Rate 101 ml/min (>60); GFR (African American) 122 ML/MIN (>60); Globulin 2.4 g/dL (1.3-3.2); Glucose 97 mg/dl (74-100); Potassium 4.6 mmoL/L (3.5-5.1); Sodium 140 mmol/L (136-145); Triglycerides 307 mg/dl (30-150); VLDL Cholesterol 61 mg/dL (0-40)
[2021-03-18 09:38] LABS: Direct LDL Cholesterol 86.24 mg/dL (100-129)
[2021-03-18 09:39] LABS: HDL Cholesterol 40 mg/dl (40-60)
[2021-03-18 09:44] LABS: Free T4 (Free Thyroxine) 1.44 ng/dl (0.78-2.19)
[2021-03-18 10:03] LABS: Eosinophils % 2 % (0-3); Lymphocytes % 55 % (10-50); Monocytes % 6 % (2-9); Neutrophils % 37 % (42-76); Platelet Estimate Normal; Total Cells Counted 100
[2021-04-12 17:59] LABS: Miscellaneous Test SCANNED REPORT
== END ==
PROVIDERS: Physician Assistant; PCP Family Medicine; Visit Provider Internal Medicine Medical Oncology
DX: R91.1 Solitary pulmonary nodule (principal)
CPT/HCPCS: 36415; 80053; 80061; 84439; 84443; 85007; 85025

== ENCOUNTER → 2021-04-16 12:06 | Outpatient (CLI) | payer OTHER, SELFPAY ==
[2021-04-16 13:27] LABS: Basophils # 0.1 K/mm3 (0-0.2); Basophils % 1.2 % (0.1-2.0); Eosinophils # 0.1 K/mm3 (0.0-0.4); Hematocrit 46.5 % (37.0-47.0); Hemoglobin 15.5 g/dL (12.2-16.2); Lymphocytes # 2.9 K/mm3 (0.7-4.5); Lymphocytes % 34.2 % (10-50); Mean Corpuscular HGB Conc 33.4 g/dL (31.8-35.4); Mean Corpuscular Hemoglobin 30.7 pg (27.0-31.2); Mean Platelet Volume 7.5 fl (7.4-10.4); Monocytes # 0.7 K/mm3 (0.1-1.0); Monocytes % 8.7 % (1.7-9.3); Neutrophils # 4.7 K/mm3 (1.8-7.8); Platelet Count 293 K/mm3 (142-424); Red Blood Count 5.05 M/mm3 (4.20-5.40); Red Cell Distribution Width 13.2 % (11.5-17.5); White Blood Count 8.5 K/mm3 (4.8-10.8)
== END ==
PROVIDERS: PCP Physician Assistant; Visit Provider Physician Assistant
DX: Z20.822 Contact with and (suspected) exposure to COVID-19 (principal)
CPT/HCPCS: 36415; 85025; C9803; U0003; U0005

== ENCOUNTER → 2021-09-01 07:09 | Outpatient (CLI) | payer OTHER, SELFPAY ==
[2021-09-01 07:35] LABS: Basophils # 0.1 K/mm3 (0-0.2); Basophils % 2.1 % (0.1-2.0); Eosinophils # 0.1 K/mm3 (0.0-0.4); Eosinophils % 3.2 % (0.1-12.0); Hematocrit 48.8 % (37.0-47.0); Hemoglobin 15.5 g/dL (12.2-16.2); Lymphocytes # 2.2 K/mm3 (0.7-4.5); Lymphocytes % 49.9 % (10-50); Mean Corpuscular HGB Conc 31.8 g/dL (31.8-35.4); Mean Corpuscular Hemoglobin 31.2 pg (27.0-31.2); Mean Corpuscular Volume 98.1 fl (81-99); Mean Platelet Volume 7.9 fl (7.4-10.4); Monocytes # 0.3 K/mm3 (0.1-1.0); Monocytes % 6.7 % (1.7-9.3); Neutrophils # 1.7 K/mm3 (1.8-7.8); Neutrophils % 38.2 % (37.0-80.0); Platelet Count 286 K/mm3 (142-424); Red Blood Count 4.98 M/mm3 (4.20-5.40); Red Cell Distribution Width 14.5 % (11.5-17.5); White Blood Count 4.4 K/mm3 (4.8-10.8)
[2021-09-01 08:18] LABS: Chol/HDL Ratio 5.2 (1-3.5); Cholesterol 223 mg/dl (140-200); HDL Cholesterol 43 mg/dl (40-60); Triglycerides 360 mg/dl (30-150); VLDL Cholesterol 72 mg/dL (0-40)
[2021-09-01 08:29] LABS: Direct LDL Cholesterol 74.28 mg/dL (100-129)
[2021-09-01 08:36] LABS: Free T4 (Free Thyroxine) 1.22 ng/dl (0.78-2.19)
[2021-09-01 08:51] LABS: Thyroid Stimulating Hormone 0.17 uIU/mL (0.465-4.68)
[2021-09-01 11:46] LABS: Chloride 103 mmol/L (98-107); Sodium 138 mmol/L (136-145)
[2021-09-01 11:47] LABS: Potassium 4.6 mmoL/L (3.5-5.1)
[2021-09-01 11:49] LABS: Alanine Aminotransferase 43 U/L (12-78); Alkaline Phosphatase 138 U/L (38-126); Anion Gap 11.6 mEq/L (5-15); Aspartate Amino Transferase 40 U/L (14-36); Bilirubin,Total 0.7 mg/dl (0.2-1.3); Blood Urea Nitrogen 15 mg/dl (7-17); Carbon Dioxide 28 mmol/L (22.0-30.0); Estimated Glomerular Filt Rate 85 ml/min (>60); GFR (African American) 102 ML/MIN (>60)
[2021-09-01 11:50] LABS: Albumin Level 4.5 g/dl (3.5-5.0); Albumin/Globulin Ratio 1.7 (1.1-1.8); Calcium 9.6 mg/dl (8.4-10.2); Globulin 2.7 g/dL (1.3-3.2); Glucose 110 mg/dl (74-100); Total Protein,Serum 7.2 g/dl (6.3-8.2)
== END ==
PROVIDERS: PCP Physician Assistant; Visit Provider Internal Medicine Medical Oncology
DX: E03.9 Hypothyroidism, unspecified (principal); E78.5 Hyperlipidemia, unspecified; I10 Essential (primary) hypertension; C50.911 Malignant neoplasm of unspecified site of right female breast
CPT/HCPCS: 36415; 80053; 80061; 84439; 84443; 85025

== ENCOUNTER → 2021-10-26 08:22 | Outpatient (CLI) | payer OTHER, SELFPAY ==
--- NOTE | 2021-10-26 08:31 | XR_ITS ---
FINAL REPORT TECHNIQUE: Bone densitometry calculations of the lumbar spine and left hip were obtained. CLINICAL HISTORY: .post menopausal FINDINGS: DEXA BONE DENSITY AXIAL SKELETON Using L1-4, the bone mineral density of the spine is 1.004 g/cm2, corresponding to T-score of -0.4. These values may be falsely elevated secondary to hypertrophic change. Using the left hip, the bone mineral density of the femoral neck is 0.626 g/cm2, corresponding to a T-score of -2.0. NOTE: T-score: Standard deviation compared with peak bone mass of young adult mean. *Following the recommendations of the International Society of Bone densitometry, classification of hip BMD is based on the lower of two T-scores; total hip or femoral neck. IMPRESSION: Diminished bone mineral density of the lumbar spine and left hip consistent with osteopenia. FRAX 10 year fracture risk is 1.2% for a hip fracture and 9.4% for a major osteoporotic fracture. Reviewed, Interpreted and Dictated by Bhavin Ríos III, MD Transcribed by Joy Kearns Authenticated and [facility]
== END ==
PROVIDERS: PCP Physician Assistant; Visit Provider Physician Assistant
DX: Z78.0 Asymptomatic menopausal state (principal); M85.89 Other specified disorders of bone density and structure, multiple sites
CPT/HCPCS: 77080

== ENCOUNTER → 2021-11-12 07:25 | Outpatient (CLI) | payer OTHER, SELFPAY ==
[2021-11-12 09:04] LABS: Free T4 (Free Thyroxine) 1.53 ng/dl (0.78-2.19)
[2021-11-12 09:19] LABS: Thyroid Stimulating Hormone 0.46 uIU/mL (0.465-4.68)
== END ==
PROVIDERS: PCP Family Medicine; Visit Provider Physician Assistant
DX: E03.9 Hypothyroidism, unspecified (principal)
CPT/HCPCS: 36415; 84439; 84443

== ENCOUNTER → 2022-03-17 07:44 | Outpatient (CLI) | payer OTHER, SELFPAY ==
--- NOTE | 2022-03-17 07:45 | MM_ITS ---
PROCEDURE INFORMATION: Exam: MG Bilateral Screening 3D Mammography Exam date and time: 03/17/2022 7:54 AM Age: 66 years old Clinical indication: Screening mammogram . History of right lumpectomy and radiation therapy for carcinoma TECHNIQUE: Imaging protocol: Bilateral Screening tomosynthesis and 2D mammography including computer-aided detection (CAD) when performed. COMPARISON: 1. MG MM DIG SCREENING MAMM BI W/CAD 03/16/2021 4:53 PM 2. MG MM DIG SCREENING MAMM BI W/CAD 03/13/2020 1:08 PM 3. MG MM DIG MAMM BI DX W/CAD 09/09/2019 2:44 PM 4. MG MM DIG SCREENING MAMM BI W/CAD 05/20/2019 8:05 AM FINDINGS: MAMMOGRAPHY: Breast composition: There are scattered areas of fibroglandular density. Mass: None. Architectural distortion: Stable postoperative architectural distortion on the right. Calcifications: Stable benign-appearing calcifications are present. No new or suspicious cluster of microcalcifications have developed. Asymmetric density: No new or suspicious asymmetric density is present Skin thickening: None. Axillary adenopathy: None. IMPRESSION: No mammographic evidence of malignancy. Recommend annual screening mammography unless otherwise clinically indicated. ASSESSMENT: BI-RADS category 2: Benign
== END ==
PROVIDERS: PCP Family Medicine; Referring Provider Internal Medicine Medical Oncology; Visit Provider Nurse Practitioner Obstetrics & Gynecology
DX: Z12.31 Encounter for screening mammogram for malignant neoplasm of breast (principal)
CPT/HCPCS: 77063; 77067

== ENCOUNTER → 2022-03-24 07:20 | Outpatient (CLI) | payer OTHER, SELFPAY ==
[2022-03-24 07:45] LABS: Basophils # 0.1 K/mm3 (0-0.2); Basophils % 2.3 % (0.1-2.0); Eosinophils # 0.2 K/mm3 (0.0-0.4); Eosinophils % 4.3 % (0.1-12.0); Hematocrit 44.6 % (37.0-47.0); Hemoglobin 14.8 g/dL (12.2-16.2); Lymphocytes # 2.2 K/mm3 (0.7-4.5); Mean Corpuscular HGB Conc 33.2 g/dL (31.8-35.4); Mean Corpuscular Hemoglobin 30.7 pg (27.0-31.2); Mean Corpuscular Volume 92.3 fl (81-99); Mean Platelet Volume 7.9 fl (7.4-10.4); Monocytes # 0.3 K/mm3 (0.1-1.0); Monocytes % 7.8 % (1.7-9.3); Neutrophils # 1.5 K/mm3 (1.8-7.8); Neutrophils % 35.6 % (37.0-80.0); Platelet Count 248 K/mm3 (142-424); Red Blood Count 4.83 M/mm3 (4.20-5.40); White Blood Count 4.3 K/mm3 (4.8-10.8)
[2022-03-24 07:47] LABS: MANUAL DIFFERENTIAL MANUAL DIFFERENTIAL (MANUAL DIFF)
[2022-03-24 08:10] LABS: Eosinophils % 5 % (0-3); Lymphocytes % 39 % (10-50); Monocytes % 13 % (2-9); Neutrophils % 43 % (42-76); Platelet Estimate Slight Decrease; RBC Morphology Normal; Total Cells Counted 100
[2022-03-24 09:27] LABS: Alanine Aminotransferase 33 U/L (12-78); Albumin Level 4.2 g/dl (3.5-5.0); Albumin/Globulin Ratio 1.7 (1.1-1.8); Alkaline Phosphatase 121 U/L (38-126); Anion Gap 9.3 mEq/L (5-15); Aspartate Amino Transferase 34 U/L (14-36); Bilirubin,Total 0.7 mg/dl (0.2-1.3); Blood Urea Nitrogen 14 mg/dl (7-17); Calcium 8.8 mg/dl (8.4-10.2); Carbon Dioxide 27 mmol/L (22.0-30.0); Chloride 108 mmol/L (98-107); Estimated Glomerular Filt Rate 101 ml/min (>60); GFR (African American) 122 ML/MIN (>60); Globulin 2.5 g/dL (1.3-3.2); Glucose 97 mg/dl (74-100); Potassium 4.3 mmoL/L (3.5-5.1); Sodium 140 mmol/L (136-145); Total Protein,Serum 6.7 g/dl (6.3-8.2)
[2022-03-24 09:44] LABS: Triiodothryronine (T3) Uptake 35 % (23.5-40.5)
[2022-03-24 09:59] LABS: Thyroid Stimulating Hormone 0.23 uIU/mL (0.465-4.68)
[2022-03-25 16:13] LABS: T4 (Thyroxine) 12.7 ug/dl (5.53-11.0)
== END ==
PROVIDERS: Internal Medicine Medical Oncology; PCP Physician Assistant; Visit Provider Physician Assistant
DX: Z85.3 Personal history of malignant neoplasm of breast (principal); Z79.899 Other long term (current) drug therapy
CPT/HCPCS: 36415; 80053; 84436; 84439; 84443; 84479; 84480; 84481; 85007; 85025

== ENCOUNTER → 2022-04-28 12:51 | Outpatient (CLI) | payer OTHER, SELFPAY ==
--- NOTE | 2022-04-28 12:56 | US_ITS ---
FINAL REPORT CLINICAL HISTORY: BREAST CANCER FINDINGS: Limited sonographic images were obtained of the right side of the neck at the area of interest. No mass is seen at the area of swelling. There is no abnormal fluid collection. The right and left submandibular glands are within normal limits. The right and left parotid glands are within normal limits. IMPRESSION: No mass or abnormal fluid collection is seen at the area of interest. Reviewed, Interpreted and Dictated by Bhavin Ríos III, MD Transcribed by Joy Kearns Authenticated and [facility]
== END ==
PROVIDERS: PCP Physician Assistant; Visit Provider Internal Medicine Medical Oncology
DX: Z85.3 Personal history of malignant neoplasm of breast (principal); R22.1 Localized swelling, mass and lump, neck
CPT/HCPCS: 76536

== ENCOUNTER → 2022-07-30 08:03 | Outpatient (CLI) | payer OTHER, SELFPAY ==
[2022-07-30 09:31] LABS: Chloride 101 mmol/L (98-107); Potassium 4.5 mmoL/L (3.5-5.1); Sodium 140 mmol/L (136-145)
[2022-07-30 09:33] LABS: Blood Urea Nitrogen 12 mg/dl (7-17); Estimated Glomerular Filt Rate 101 ml/min (>60); GFR (African American) 122 ML/MIN (>60)
[2022-07-30 09:34] LABS: Alanine Aminotransferase 42 U/L (12-78); Albumin Level 4.4 g/dl (3.5-5.0); Albumin/Globulin Ratio 1.6 (1.1-1.8); Alkaline Phosphatase 137 U/L (38-126); Anion Gap 14.5 mEq/L (5-15); Aspartate Amino Transferase 41 U/L (14-36); Bilirubin,Total 0.8 mg/dl (0.2-1.3); Calcium 9.2 mg/dl (8.4-10.2); Carbon Dioxide 29 mmol/L (22.0-30.0); Cholesterol 180 mg/dl (140-200); Globulin 2.7 g/dL (1.3-3.2); Glucose 95 mg/dl (74-100); Total Protein,Serum 7.1 g/dl (6.3-8.2); Triglycerides 283 mg/dl (30-150); VLDL Cholesterol 57 mg/dL (0-40)
[2022-07-30 09:35] LABS: Chol/HDL Ratio 4.4 (1-3.5); HDL Cholesterol 41 mg/dl (40-60)
[2022-07-30 09:45] LABS: Direct LDL Cholesterol 67.76 mg/dL (100-129)
[2022-07-30 10:05] LABS: Thyroid Stimulating Hormone 0.07 uIU/mL (0.465-4.68)
[2022-07-30 10:23] LABS: Free T4 (Free Thyroxine) 1.36 ng/dl (0.78-2.19)
== END ==
PROVIDERS: PCP Physician Assistant; Visit Provider Physician Assistant
DX: E03.9 Hypothyroidism, unspecified (principal); E78.5 Hyperlipidemia, unspecified
CPT/HCPCS: 36415; 80053; 80061; 84439; 84443; 84481

== ENCOUNTER → 2022-08-10 06:48 | Outpatient (CLI) | payer OTHER, SELFPAY ==
--- NOTE | 2022-08-10 06:52 | US_ITS ---
PROCEDURE INFORMATION: Exam: US Right Breast, Complete Exam date and time: 08/10/2022 6:59 AM Age: 66 years old Clinical indication: History right Lumpectomy 9:00 in 2009; palpable abnormality in the right 6 o'clock axis TECHNIQUE: Imaging protocol: Complete ultrasound of all four quadrants of the right breast and the retroareolar regions, including ultrasound of the axilla when performed. COMPARISON: [facility] US breast cyst asp 06/21/2017 10:34 AM FINDINGS: Breast: Sonographic images of the right breast including the retroareolar region, all 4 quadrants and the axilla do not demonstrate any solid or cystic masses. No focal findings in the right 6 o'clock axis where the patient reports a palpable abnormality. Predominantly adipose tissue is noted. No suspicious architectural distortion or acoustical shadowing. No skin thickening or axillary adenopathy. IMPRESSION: Patient to return for a diagnostic right mammogram for complete evaluation of the patient's complaint of a palpable abnormality. ASSESSMENT: BI-RADS Category 0: Incomplete- Need Additional Imaging Evaluation and/or Prior Mammograms for Comparison
== END ==
PROVIDERS: PCP Physician Assistant; Visit Provider Physician Assistant
DX: N63.10 Unspecified lump in the right breast, unspecified quadrant (principal)
CPT/HCPCS: 76641

== ENCOUNTER → 2022-08-17 16:44 | Outpatient (CLI) | payer OTHER, SELFPAY ==
--- NOTE | 2022-08-17 16:46 | XR_ITS ---
PROCEDURE INFORMATION: Exam: XR Left Hand Exam date and time: 08/17/2022 4:47 PM Age: 66 years old Clinical indication: Other: Cyst on 3rd digit; Additional info: Lt hand ganglion cyst TECHNIQUE: Imaging protocol: Radiologic exam of the left hand. Views: 3 or more views. COMPARISON: No relevant prior studies available. FINDINGS: Bones/joints: No acute fracture or dislocation. Soft tissues: Normal. IMPRESSION: No acute fracture or dislocation.
== END ==
PROVIDERS: PCP Physician Assistant; Visit Provider Orthopaedic Surgery
DX: M67.442 Ganglion, left hand (principal)
CPT/HCPCS: 73130

== ENCOUNTER → 2022-08-18 13:37 | Outpatient (CLI) | payer OTHER, SELFPAY ==
--- NOTE | 2022-08-18 13:42 | MM_ITS ---
PROCEDURE INFORMATION: Exam: MG Right Diagnostic Breast Tomosynthesis Exam date and time: 08/18/2022 1:38 PM Age: 66 years old Clinical indication: Right breast palpable lump; Additional info: Mass of right mass TECHNIQUE: Imaging protocol: Right Diagnostic tomosynthesis and 2D mammography including computer-aided detection (CAD) when performed. Unilateral or bilateral exam. COMPARISON: 1. MG MM DIG SCREENING MAMM BI W/CAD 03/17/2022 7:54 AM 2. MG MM DIG SCREENING MAMM BI W/CAD 03/16/2021 4:53 PM FINDINGS: MAMMOGRAPHY: The breast tissue is composed of scattered areas of fibroglandular density. There is no stellate mass, architectural distortion or suspicious microcalcifications to suggest malignancy. Routine and spot compression views over an area of palpable concern in the right 6 o'clock axis demonstrates predominantly adipose tissue. No skin thickening or axillary adenopathy. Review of the patient's sonogram dated 08/10/2022 did not demonstrate any suspicious findings IMPRESSION: Palpable abnormality in the right breast corresponds both mammographically and sonographically to normal fibroglandular structures. There is no mammographic evidence of malignancy. Further evaluation of a palpable abnormality should be based on clinical grounds regardless of radiographic findings or lack thereof. Annual mammographic screening is recommended unless otherwise clinically indicated. ASSESSMENT: BI-RADS Category 1: Negative
== END ==
PROVIDERS: PCP Physician Assistant; Visit Provider Physician Assistant
DX: N63.10 Unspecified lump in the right breast, unspecified quadrant (principal)
CPT/HCPCS: 77061; 77065; G0279

== ENCOUNTER → 2022-09-24 08:13 | Outpatient (CLI) | payer OTHER, SELFPAY ==
[2022-09-24 10:17] LABS: Free T4 (Free Thyroxine) 1.09 ng/dl (0.78-2.19)
[2022-09-24 10:33] LABS: Thyroid Stimulating Hormone 0.76 uIU/mL (0.465-4.68)
== END ==
PROVIDERS: PCP Physician Assistant; Visit Provider Physician Assistant
DX: E03.9 Hypothyroidism, unspecified (principal)
CPT/HCPCS: 36415; 84439; 84443

== ENCOUNTER 2023-03-20 07:29 | Outpatient (CLI) | payer MEDICARE, SELFPAY ==
--- NOTE | 2023-03-20 07:46 | MM_ITS ---
PROCEDURE INFORMATION: Exam: MG Bilateral Screening 3D Mammography Exam date and time: 03/20/2023 7:49 AM Age: 67 years old Clinical indication: Screening examination; Additional info: Screening mammogram. Personal history of right breast carcinoma treated with lumpectomy and radiation. Family history of breast carcinoma. TECHNIQUE: Imaging protocol: Bilateral Screening tomosynthesis and 2D mammography including computer-aided detection (CAD) when performed. COMPARISON: 1. MG MM DIG MAMM DX UNILAT RT CAD 08/18/2022 1:38 PM 2. MG MM DIG SCREENING MAMM BI W/CAD 03/17/2022 7:54 AM 3. MG MM DIG SCREENING MAMM BI W/CAD 03/16/2021 4:53 PM FINDINGS: MAMMOGRAPHY: Breast composition: There are scattered areas of fibroglandular density. Mass: No suspicious masses. Architectural distortion: No suspicious distortion. Stable post lumpectomy architectural distortion in the right upper outer quadrant. Calcifications: No suspicious calcifications. Asymmetric density: None. Skin thickening: None. Axillary adenopathy: None. IMPRESSION: No mammographic evidence of malignancy. Annual screening is recommended unless otherwise clinically indicated. ASSESSMENT: BI-RADS Category 2: Benign
[2023-03-20 08:00] LABS: Basophils # 0.1 K/mm3 (0-0.2); Basophils % 2.2 % (0.1-2.0); Eosinophils # 0.2 K/mm3 (0.0-0.4); Eosinophils % 5.2 % (0.1-12.0); Hemoglobin 15.1 g/dL (12.2-16.2); Lymphocytes # 2.4 K/mm3 (0.7-4.5); Lymphocytes % 52.6 % (10-50); Mean Corpuscular HGB Conc 34.4 g/dL (31.8-35.4); Mean Corpuscular Hemoglobin 31.6 pg (27.0-31.2); Mean Platelet Volume 7.8 fl (7.4-10.4); Monocytes # 0.3 K/mm3 (0.1-1.0); Monocytes % 7.6 % (1.7-9.3); Neutrophils # 1.5 K/mm3 (1.8-7.8); Neutrophils % 32.3 % (37.0-80.0); Platelet Count 206 K/mm3 (142-424); Red Blood Count 4.79 M/mm3 (4.20-5.40); Red Cell Distribution Width 13.6 % (11.5-17.5); White Blood Count 4.5 K/mm3 (4.8-10.8)
[2023-03-20 08:27] LABS: MANUAL DIFFERENTIAL MANUAL DIFFERENTIAL (MANUAL DIFF)
[2023-03-20 08:56] LABS: Eosinophils % 5 % (0-3); Lymphocytes % 54 % (10-50); Monocytes % 10 % (2-9); Neutrophils % 30 % (42-76); Total Cells Counted 100
[2023-03-20 08:58] LABS: Platelet Estimate Normal; RBC Morphology Normal
[2023-03-20 09:07] LABS: Alanine Aminotransferase 37 U/L (12-78); Albumin Level 4.3 g/dl (3.5-5.0); Albumin/Globulin Ratio 1.8 (1.1-1.8); Alkaline Phosphatase 126 U/L (38-126); Anion Gap 11.3 mEq/L (5-15); Aspartate Amino Transferase 37 U/L (14-36); Bilirubin,Total 0.7 mg/dl (0.2-1.3); Blood Urea Nitrogen 13 mg/dl (7-17); Calcium 9.2 mg/dl (8.4-10.2); Carbon Dioxide 28 mmol/L (22.0-30.0); Chloride 104 mmol/L (98-107); Chol/HDL Ratio 6.1 (1-3.5); Cholesterol 219 mg/dl (140-200); Estimated Glomerular Filt Rate 84 ml/min (>60); GFR (African American) 102 ML/MIN (>60); Globulin 2.4 g/dL (1.3-3.2); Glucose 94 mg/dl (74-100); HDL Cholesterol 36 mg/dl (40-60); Potassium 4.3 mmoL/L (3.5-5.1); Sodium 139 mmol/L (136-145); Total Protein,Serum 6.7 g/dl (6.3-8.2); Triglycerides 373 mg/dl (30-150); VLDL Cholesterol 75 mg/dL (0-40)
[2023-03-20 09:18] LABS: Direct LDL Cholesterol 76.38 mg/dL (100-129)
[2023-03-20 09:23] LABS: Free T4 (Free Thyroxine) 1.27 ng/dl (0.78-2.19)
[2023-03-20 09:37] LABS: Thyroid Stimulating Hormone 2.47 uIU/mL (0.465-4.68)
== END 2023-03-20 23:59 ==
LOC: RAD 07:30
PROVIDERS: PCP Physician Assistant; Visit Provider Nurse Practitioner Obstetrics & Gynecology
DX: Z12.31 Encounter for screening mammogram for malignant neoplasm of breast; Z85.3 Personal history of malignant neoplasm of breast; E03.9 Hypothyroidism, unspecified; E78.1 Pure hyperglyceridemia; E78.5 Hyperlipidemia, unspecified; I10 Essential (primary) hypertension
CPT/HCPCS: 36415; 77063; 77067; 80053; 80061; 84439; 84443; 85007; 85025

== ENCOUNTER 2023-11-08 10:04 | Outpatient (CLI) | payer MEDICARE, SELFPAY ==
[2023-11-08 10:43] LABS: Basophils # 0.1 K/mm3 (0-0.2); Basophils % 1.2 % (0.1-2.0); Eosinophils # 0.3 K/mm3 (0.0-0.4); Eosinophils % 5.6 % (0.1-12.0); Hemoglobin 15.2 g/dL (12.2-16.2); Lymphocytes # 2.3 K/mm3 (0.7-4.5); Lymphocytes % 47.1 % (10-50); Mean Corpuscular HGB Conc 32.4 g/dL (31.8-35.4); Mean Corpuscular Hemoglobin 31.5 pg (27.0-31.2); Mean Corpuscular Volume 97.4 fl (81-99); Mean Platelet Volume 7.7 fl (7.4-10.4); Monocytes # 0.4 K/mm3 (0.1-1.0); Monocytes % 7.6 % (1.7-9.3); Neutrophils # 1.9 K/mm3 (1.8-7.8); Neutrophils % 38.5 % (37.0-80.0); Platelet Count 286 K/mm3 (142-424); Red Blood Count 4.82 M/mm3 (4.20-5.40); Red Cell Distribution Width 13.4 % (11.5-17.5); White Blood Count 4.8 K/mm3 (4.8-10.8)
[2023-11-08 11:14] LABS: Alanine Aminotransferase 33 U/L (12-78); Albumin Level 4.2 g/dl (3.5-5.0); Albumin/Globulin Ratio 1.4 (1.1-1.8); Alkaline Phosphatase 113 U/L (38-126); Anion Gap 9.6 mEq/L (5-15); Aspartate Amino Transferase 36 U/L (14-36); Bilirubin,Total 0.7 mg/dl (0.2-1.3); Blood Urea Nitrogen 18 mg/dl (7-17); Calcium 9.6 mg/dl (8.4-10.2); Carbon Dioxide 27 mmol/L (22.0-30.0); Chloride 107 mmol/L (98-107); Chol/HDL Ratio 6.3 (1-3.5); Cholesterol 245 mg/dl (140-200); Estimated Glomerular Filt Rate 100 ml/min (>60); GFR (African American) 121 ML/MIN (>60); Glucose 87 mg/dl (74-100); HDL Cholesterol 39 mg/dl (40-60); Potassium 4.6 mmoL/L (3.5-5.1); Sodium 139 mmol/L (136-145); Total Protein,Serum 7.2 g/dl (6.3-8.2)
[2023-11-08 11:20] LABS: Triglycerides 493 mg/dl (30-150)
[2023-11-08 11:24] LABS: Direct LDL Cholesterol 77.51 mg/dL (100-129)
[2023-11-08 11:29] LABS: Free T4 (Free Thyroxine) 1.37 ng/dl (0.78-2.19)
[2023-11-08 11:44] LABS: Thyroid Stimulating Hormone 0.19 uIU/mL (0.465-4.68)
[2023-11-08 12:03] LABS: Vitamin B12 879 pg/mL (239-931)
== END 2023-11-08 23:59 | disposition home or self-care (01) ==
LOC: LAB 10:06
PROVIDERS: PCP Physician Assistant; Visit Provider Physician Assistant
DX: E78.1 Pure hyperglyceridemia (principal); R20.2 Paresthesia of skin; I10 Essential (primary) hypertension; E03.9 Hypothyroidism, unspecified
CPT/HCPCS: 36415; 80053; 80061; 82607; 84439; 84443; 85025

== ENCOUNTER 2024-02-06 08:12 | Outpatient (CLI) | payer MEDICARE, SELFPAY ==
[2024-02-06 10:02] LABS: Chol/HDL Ratio 5.9 (1-3.5); Cholesterol 214 mg/dl (140-200); HDL Cholesterol 36 mg/dl (40-60); Triglycerides 357 mg/dl (30-150); VLDL Cholesterol 71 mg/dL (0-40)
[2024-02-06 10:14] LABS: Direct LDL Cholesterol 84.15 mg/dL (100-129)
[2024-02-06 10:32] LABS: Free T4 (Free Thyroxine) 1.45 ng/dl (0.78-2.19)
[2024-02-06 10:49] LABS: Thyroid Stimulating Hormone 0.24 uIU/mL (0.465-4.68)
== END 2024-02-06 23:59 | disposition home or self-care (01) ==
LOC: LAB 08:14
PROVIDERS: PCP Physician Assistant; Visit Provider Physician Assistant
DX: E78.5 Hyperlipidemia, unspecified (principal); E03.9 Hypothyroidism, unspecified
CPT/HCPCS: 36415; 80061; 84439; 84443

== ENCOUNTER 2024-03-21 08:19 | Outpatient (CLI) | payer MEDICARE, SELFPAY ==
--- NOTE | 2024-03-21 08:21 | MM_ITS ---
PROCEDURE INFORMATION: Exam: MG Bilateral Screening 3D Mammography Exam date and time: 03/21/2024 8:28 AM Age: 68 years old Clinical indication: Screening examination. TECHNIQUE: Imaging protocol: Bilateral Screening tomosynthesis and 2D mammography including computer-aided detection (CAD) when performed. COMPARISON: 1. MG MM DIG SCREENING MAMM BI W/CAD 03/20/2023 7:49 AM 2. MG MM DIG MAMM DX UNILAT RT CAD 08/18/2022 1:38 PM FINDINGS: MAMMOGRAPHY: Breast composition: There are scattered areas of fibroglandular density. Mass: None. Architectural distortion: None. Calcifications: No suspicious calcifications. Asymmetric density: None. Skin thickening: None. Axillary adenopathy: None. IMPRESSION: No mammographic evidence of malignancy. Annual screening is recommended unless otherwise clinically indicated. ASSESSMENT: BI-RADS Category 1: Negative.
== END 2024-03-21 23:59 | disposition home or self-care (01) ==
LOC: RAD 08:21
PROVIDERS: PCP Family Medicine; Visit Provider Nurse Practitioner Obstetrics & Gynecology
DX: Z12.31 Encounter for screening mammogram for malignant neoplasm of breast (principal)
CPT/HCPCS: 77063; 77067

== ENCOUNTER 2024-03-21 12:17 | Emergency (ER) | payer MEDICARE, SELFPAY ==
--- NOTE | 2024-03-21 12:21 | XR_ITS ---
FINAL REPORT CLINICAL HISTORY: fall FINDINGS: Right elbow Three views were obtained. There is a minimally displaced radial head fracture with a small joint effusion. IMPRESSION: Fracture as above. Reviewed, Interpreted and Dictated by Bandar Wynne MD Transcribed by Tamy Thakkar Authenticated and [facility]
--- NOTE | 2024-03-21 12:21 | XR_ITS ---
FINAL REPORT CLINICAL HISTORY: fall COMPARISON: 08/17/2022 FINDINGS: Left hand Three views were obtained. There is a displaced, intra-articular fracture at the base of the first distal phalange. IMPRESSION: Fracture as above. Reviewed, Interpreted and Dictated by Bandar Wynne MD Transcribed by Tamy Thakkar Authenticated and [facility][1]
[2024-03-21 12:45] VITALS: BP 162/99; PULSE 81; RESP 18; TEMP 36.8; O2SAT 97; BMI 34.0
--- NOTE | 2024-03-21 13:35 | EXP.UTC ---
Discharge Plan Disposition Patient Disposition: Home, Self-Care Condition: Good Prescriptions Prescriptions: No Action levothyroxine [Synthroid] 88 mcg tablet 88 mcg PO DAILY losartan 50 mg tablet See Rx Instructions .ROUTE .COMPLEX Qty: 90 3RF Dose Instruction: TAKE 1 TABLET DAILY Rx Instructions: TAKE 1 TABLET DAILY fluticasone propionate [Flonase Allergy Relief] 50 mcg/actuation spray,suspension 1 spray INTRANASAL BID PRN (Reason: allergies) Co Q-10 300 mg capsule 300 mg PO DAILY icosapent ethyl [Vascepa] 1 gram capsule 2 g PO BID levothyroxine 100 mcg capsule 88 mcg PO Q OTHER DAY Rx Instructions: alternating with the 112mcg rosuvastatin 10 mg tablet See Rx Instructions .ROUTE .COMPLEX Qty: 90 1RF Dose Instruction: TAKE 1 TABLET DAILY Rx Instructions: TAKE 1 TABLET DAILY metoprolol tartrate 25 mg tablet See Rx Instructions .ROUTE .COMPLEX Qty: 180 4RF Dose Instruction: TAKE 1 TABLET TWICE DAILY FOR BLOOD PRESSURE Rx Instructions: TAKE 1 TABLET TWICE DAILY FOR BLOOD PRESSURE cetirizine 10 MG tablet 10 mg PO DAILY cholecalciferol (vitamin D3) 1,000 UNIT capsule 5,000 unit PO DAILY sryhrfgj-jri-uzto-FA-vit K-lut 1 EACH tablet 1 each PO DAILY calcium carb, citrate-vit D3 1 EACH tablet extended release 1 each PO DAILY vitamin E succinate 400 UNIT tablet 2,000 units PO DAILY aspirin 81 MG tablet,delayed release (DR/EC) 81 mg PO DAILY Referrals Follow up/Referrals: Zac Mcpherson MD [Primary Care Provider] - See instructions Orville Omalley DO [Staff Physician] - See instructions Activity Restrictions/Add. Instructions Additional Instructions/Restrictions: Rest the affected extremities, apply ice for 15 minutes as tolerated three or four times per day, Elevate the affected extremities as tolerated while you are resting. Take ibuprofen or tylenol for pain. Follow up with Dr. Omalley (orthopedics). I put in a referral to him and we called him about your injuries, but you need to call his office and schedule an appointment. His office phone number will be on this paperwork. You could also follow up with your hand specialist regarding your thumb injury if you so choose. We will provide with a disk of your x-rays that were done today so you can take it to them. Follow up with your regular doctor. GO TO THE ER FOR ANY WORSENING SYMPTOMS We tried to remove your rings. You chose not to have them cut off. There is a real danger that your hand will swell worse. This swelling will result in the rings cutting the blood cirulation off to your finger. That would result in permament damage or possible loss of your finger. Make sure you control the swelling of your hand by keeping it elevated and applying ice regularly to the injuries for the next few days. If you have any concerns related to the swelling, please return to the ER to have the rings cut off MARIKA. Clinical Impressions Clinical Impression: Closed fracture of head of right radius, Fracture of thumb, left, closed Instructions Patient Instructions: Elbow Fracture, DI for Finger Fracture, DI for Elbow Fracture, How to Take Care of Your Splint Print Language Print Language: Macanese Discharge ED Provider: Prakash Tanner [facility] General Stated complaint: AO 03/21/24 11:20 fell, inj left thumb Mode of Arrival: Ambulatory Source of Information: Patient Time Seen by Provider: 03/21/24 13:35 Description of Symptoms (Recalled from Triage Doc. by RN): FALL ON SIDEWALK, JURT LEFT THUMB, RIGHT ARM HEENT Symptoms (Recalled from RN notes): No Resp Symptoms (Recalled from RN notes): No Skin Symptoms (Recalled from RN notes): No MS Symptoms (Recalled from RN notes): Yes Functional Status (Recalled from RN notes): WNL History of Present Illness Provider Complaint: She states that she fell today on the ice. She came down on her right elbow and she twisted her left thumb backwards. She denies any other injury. Related Data Home Medications ?Medication ?Instructions ?Recorded ?Confirmed calcium ER 600 mg (as carb,cit)-D3 1 each PO DAILY Supplement 06/16/17 03/25/24 12.5 mcg (500 unit) tablet, ext.rel cetirizine 10 mg tablet 10 mg PO DAILY allergies 06/16/17 03/25/24 cholecalciferol (vitamin D3) 25 5,000 unit PO DAILY Supplement 06/16/17 03/25/24 mcg (1,000 unit) capsule nnbhdysl-exld-xnur 8 mg-folic 400 1 each PO DAILY Supplement 06/16/17 03/25/24 mcg-K 50 mcg-lutein 300 mcg tablet vitamin E succinate 268 mg (400 2,000 units PO DAILY Supplement 06/16/17 03/25/24 unit) tablet fluticasone propionate 50 1 spray intranasal BID PRN 07/26/17 03/25/24 mcg/actuation nasal allergies spray,suspension (Flonase Allergy Relief) coenzyme Q10 300 mg capsule (Co 300 mg PO DAILY Supplement 06/08/18 03/25/24 Q-10) aspirin 81 mg tablet,delayed 81 mg PO DAILY prevent 06/26/18 03/25/24 release icosapent ethyl 1 gram capsule 2 g PO BID 05/20/21 03/25/24 (Vascepa) levothyroxine 100 mcg capsule 88 mcg PO Q OTHER DAY 11/17/22 03/25/24 levothyroxine 88 mcg tablet 88 mcg PO DAILY 03/23/23 03/25/24 (Synthroid) Previous Rx's ?Medication ?Instructions ?Recorded rosuvastatin 10 mg tablet See Rx Instructions .Route 01/30/23 .COMPLEX #90 tabs metoprolol tartrate 25 mg tablet See Rx Instructions .Route 05/08/23 .COMPLEX #180 tabs losartan 50 mg tablet See Rx Instructions .Route 11/20/23 .COMPLEX #90 tabs Allergies Allergy/AdvReac Type Severity Reaction Status Date / Time azithromycin Allergy Intermediate I-HIVES Verified 03/25/24 14:48 clindamycin Allergy Intermediate I-RASH Verified 03/25/24 14:48 erythromycin base Allergy Intermediate I-HIVES Verified 03/25/24 14:48 Penicillins Allergy Intermediate SWELLING Verified 03/25/24 14:48 Sulfa (Sulfonamide Allergy Intermediate I-RASH Verified 03/25/24 14:48 Antibiotics) Worker's Comp Is this a Worker's Comp case?: No [facility] Disclaimer: The information contained in this section may have been updated after the patient was seen, as this information can be updated by other users. Medical History HLD (hyperlipidemia) HTN (hypertension) H/O therapeutic radiation Palpitations Abnormal stress test Surgical History History of segmental mastectomy Family History Father Hypertension Stroke Coronary artery disease Other Mitral valve replaced Social History Smoking Status: Never smoker alcohol intake: never substance use type: denies use current occupational status: employed Travel in the last 8 weeks: None household members: spouse housing: house caffeine: No Have you lived/traveled outside US in past 30 days?: No Contact w/someone who lives/traveled outside US past 30 days?: No Exposure to someone with infectious disease in past 14 days?: No Do you have a fever (greater than 100.4 F or 38 C)?: No Have you tested positive for COVID-19: No Exposed to someone with COVID-19 in past 14 days?: No Do you have a sore throat?: No Do you have a cough?: No Do you have shortness of breath?: No Do you have a headache?: No Do you have any weakness?: No Are you experiencing any nausea/vomitting?: No Do you have any diarrhea?: No Are you experiencing any unusual bleeding?: No Do you have any muscle aches/pain?: No Do you have any abdominal pain?: No Are you experiencing loss of taste or smell?: No ROS Obtained: Yes All systems reviewed & no additional complaints except as documented Constitutional Constitutional: Denies chills and Denies fever(s) Eyes Eyes: Denies eye discharge ENT Ears, Nose, Mouth, and Throat: Denies dizziness, Denies otalgia and Denies sore throat Cardiovascular Cardiovascular: Denies chest pain Respiratory Respiratory: Denies shortness of breath, Denies chest congestion, Denies cough, Denies stridor and Denies wheezing Gastrointestinal Gastrointestingal: Denies nausea or vomiting Musculoskeletal Musculoskeletal: Reports as per HPI Integumentary/Breasts Skin/Breast: Denies rash Neurologic Neurologic: Denies dizziness and Denies paresthesias Allergic/Immunologic Allergic/Immunologic: Denies wheezing Physical Exam General General appearance: alert and in no apparent distress Head Head exam: atraumatic, normocephalic and normal inspection Eye Eye exam: Present normal appearance, PERRL and EOMI ENT ENT exam: Present normal exam, normal oropharynx, mucous membranes moist, TM's normal bilaterally and normal external ear exam Neck Neck exam: Present normal inspection, full ROM and trachea midline; Absent meningismus or lymphadenopathy Chest Chest inspection: Present normal inspection and symmetric chest wall rise; Absent tenderness Respiratory Respiratory exam: Present normal lung sounds bilaterally; Absent respiratory distress Cardiovascular Cardiovascular exam: Present regular rate and normal rhythm; Absent JVD Abdominal Exam Abdominal exam: Present soft and normal bowel sounds; Absent distention, tenderness or guarding Extremities Exam Extremities exam: Present normal inspection, full ROM and normal capillary refill; Absent calf tenderness Back Exam Back exam: Present normal inspection; Absent tenderness Neurological Exam Neurological exam: Present alert and oriented X3 Psychiatric Psychiatric exam: Present normal affect and normal mood Skin Skin exam: Present warm, dry, intact and normal color Lymphatic Lymphatic Findings: no adenopathy Medical Decision Making Medical Records Medical records reviewed: No I reviewed the patient's medical records. Screening: Per USPSTF and CDC recommendations, given the prevalence of disease in our region, it is our hospital?s policy to screen for HIV and viral Hepatitis for all patients aged 18 and over and those with ongoing risk factors. Gaurav Inquiry Pt receiving controlled substance: No Vital Signs: 03/21/24 12:45 Temperature 98.3 F Temperature Source Oral Pulse Rate [Left Radial] 81 Respiratory Rate 18 Blood Pressure [Left Arm] 162/99 H Blood Pressure Mean [Left Arm] 120 02 Sat by Pulse Oximetry 97 Orders (Tests/Meds): ORDERS Category Date Time Status Elbow XR right minimum 3 views [XR elbow RT min 3V] Exams 03/21/24 12:21 Taken Stat XR hand LT 2V Stat Exams 03/21/24 12:21 Taken Procedures Risk/Benefits of Procedure(s) Were Explained: Yes Orthopedic Splinting/Casting Injury #1: Side: left Upper Extremity Injury Location: thumb Upper Extremity Immobilizer: aluminum form splint and applied by nurse/dr avalos Post Cast/Splinting Neuro Status: intact and no change Post Cast/Splinting Vasc Status: intact and no change Injury #2: Side: right Upper Extremity Injury Location: upper arm, elbow and forearm Upper Extremity Immobilizer: posterior splint and applied by nurse/dr avalos Post Cast/Splinting Neuro Status: intact and no change Post Cast/Splinting Vasc Status: intact and no change
--- NOTE | 2024-03-21 13:44 | PC.NURSE ---
MULTIPLE STAFF TRIED TO REMOVED RINGS FROM LEFT RING FINGER, UNABLE TO REMOVE RINGS WITHOUT CUTTING. PATIENT REFUSED TO HAVE RINGS CUT. INFORMED PT TO RICE IT AND IF SWELLING GETS WORSE TO FOLLOW UP.
[2024-03-21 14:31] VITALS: BP 162/99; PULSE 81; RESP 18; TEMP 36.8
== END 2024-03-21 14:31 | disposition home or self-care (01) ==
PROVIDERS: Emergency Provider Nurse Practitioner Family; PCP Family Medicine
DX: S52.124A Nondisplaced fracture of head of right radius, initial encounter for closed fracture (principal); S63.502A Unspecified sprain of left wrist, initial encounter
CPT/HCPCS: 73080; 73120; 99212; G0381

== ENCOUNTER 2024-03-29 06:44 | Outpatient (CLI) | payer MEDICARE, SELFPAY ==
--- NOTE | 2024-03-29 06:50 | CT_ITS ---
FINAL REPORT TECHNIQUE: Axial images through the right elbow were performed by computed tomography. Sagittal and coronal reconstruction images were performed. This study was performed with techniques to keep radiation doses as low as reasonably achievable (ALARA). Individualized dose reduction techniques using automated exposure control or adjustment of mA and/or kV according to the patient's size were employed. CLINICAL HISTORY: Rt Elbow radial head fracture COMPARISON: none FINDINGS: There is a linear fracture of the radial head extending into the joint space. There is 2 mm of articular step-off. The remaining osseous structures are intact. There is no evidence of dislocation or subluxation. No calcified joint bodies are seen. No significant degenerative changes identified. No soft tissue abnormality. IMPRESSION: Linear fracture of radial head with 2 mm of displacement of the articular surface. Reviewed, Interpreted and Dictated by Zac Jin MD Transcribed by Ava Yeung Authenticated and . [facility]
--- NOTE | 2024-03-29 06:50 | CT_ITS ---
FINAL REPORT TECHNIQUE: Axial images through the left hand were performed by computed tomography. Sagittal and coronal reconstruction images were performed. This study was performed with techniques to keep radiation doses as low as reasonably achievable (ALARA). Individualized dose reduction techniques using automated exposure control or adjustment of mA and/or kV according to the patient's size were employed. CLINICAL HISTORY: lt thumb fx COMPARISON: None FINDINGS: There is a comminuted fracture at the base of the first distal phalanx with extension into the interphalangeal joint. There is up to 2.5 mm of displacement. There is no evidence of subluxation or dislocation. No other fractures identified. No significant degenerative changes identified. No soft tissue abnormality. IMPRESSION: Comminuted, displaced fracture first distal phalanx with extension to the joint space. Reviewed, Interpreted and Dictated by aZc Jin MD Transcribed by Ava Yeung Authenticated and [facility]
== END 2024-03-29 23:59 | disposition home or self-care (01) ==
PROVIDERS: PCP Family Medicine; Visit Provider Physician Assistant
DX: M79.642 Pain in left hand (principal); S62.502A Fracture of unspecified phalanx of left thumb, initial encounter for closed fracture; M25.521 Pain in right elbow; S52.121A Displaced fracture of head of right radius, initial encounter for closed fracture
CPT/HCPCS: 73200

== ENCOUNTER 2024-04-22 08:41 | Outpatient (CLI) | payer MEDICARE, SELFPAY ==
--- NOTE | 2024-04-22 08:45 | XR_ITS ---
FINAL REPORT CLINICAL HISTORY: lt hand fx COMPARISON: 03/21/2024 FINDINGS: Three views of the left hand show a mildly comminuted fracture at the base of the 1st distal phalanx with mild increased displacement since the prior exam. There is no evidence of bony union at this time. The joints are intact. IMPRESSION: No radiographic healing of the 1st distal phalanx fracture with slight increased displacement. Reviewed, Interpreted and Dictated by Zac Jin MD Transcribed by Ava Yeung Authenticated and [facility]
--- NOTE | 2024-04-22 08:45 | XR_ITS ---
FINAL REPORT CLINICAL HISTORY: Rt Elbow Fx COMPARISON: 03/21/2024 FINDINGS: RIGHT ELBOW 3 views were obtained. There is a comminuted fracture of the radial head with minimal displacement, similar to the prior study. No new abnormality is identified. There is no joint effusion. There are mild degenerative changes. There is no soft tissue abnormality. IMPRESSION: Minimally displaced comminuted fracture radial head without significant change. Reviewed, Interpreted and Dictated by Zac Jin MD Transcribed by Ava Yeung Authenticated and [facility]
== END 2024-04-22 23:59 | disposition home or self-care (01) ==
LOC: RAD 08:43
PROVIDERS: PCP Family Medicine; Visit Provider Physician Assistant
DX: M79.642 Pain in left hand (principal); S62.522D Displaced fracture of distal phalanx of left thumb, subsequent encounter for fracture with routine healing; M25.521 Pain in right elbow; S52.124D Nondisplaced fracture of head of right radius, subsequent encounter for closed fracture with routine healing
CPT/HCPCS: 73080; 73130

== ENCOUNTER 2024-05-13 08:57 | Outpatient (CLI) | payer MEDICARE, SELFPAY ==
--- NOTE | 2024-05-13 09:07 | XR_ITS ---
FINAL REPORT CLINICAL HISTORY: fx to 1st digit from fall in february, no surgery, checkup visit COMPARISON: 04/22/2024 FINDINGS: AP, oblique, and lateral views of the left hand were obtained. There has been no change in the fracture at the base of the distal phalanx of the thumb. No further healing is noted. There is no new osseous abnormality identified. Mild degenerative joint disease is noted. Soft tissues are without acute abnormality. IMPRESSION: Stable thumb fracture as above. Reviewed, Interpreted and Dictated by Therese Boyd MD Transcribed by Ava Yeung Authenticated and [facility]
--- NOTE | 2024-05-13 09:07 | XR_ITS ---
FINAL REPORT CLINICAL HISTORY: fx in February, checkup for healing COMPARISON: 04/22/2024 FINDINGS: AP, oblique, and lateral views of the right elbow were obtained. Again seen is a fracture of the radial head and neck. There has been no interval healing since the previous exam. No new osseous abnormality identified. There is no significant joint effusion. IMPRESSION: Stable radial head and neck fracture. Reviewed, Interpreted and Dictated by Therese Boyd MD Transcribed by Ava Yeung Authenticated and [facility]
== END 2024-05-13 23:59 | disposition home or self-care (01) ==
LOC: RAD 08:58
PROVIDERS: PCP Family Medicine; Visit Provider Physician Assistant
DX: M79.642 Pain in left hand (principal); S62.522D Displaced fracture of distal phalanx of left thumb, subsequent encounter for fracture with routine healing; M25.521 Pain in right elbow; S52.124D Nondisplaced fracture of head of right radius, subsequent encounter for closed fracture with routine healing
CPT/HCPCS: 73080; 73130

== ENCOUNTER 2024-05-18 08:04 | Outpatient (CLI) | payer MEDICARE, SELFPAY ==
[2024-05-18 10:07] LABS: Alanine Aminotransferase 34 U/L (12-78); Albumin Level 4.2 g/dl (3.5-5.0); Albumin/Globulin Ratio 1.5 (1.1-1.8); Alkaline Phosphatase 103 U/L (38-126); Anion Gap 13.3 mEq/L (5-15); Aspartate Amino Transferase 34 U/L (14-36); Bilirubin,Total 0.7 mg/dl (0.2-1.3); Blood Urea Nitrogen 14 mg/dl (7-17); Calcium 9.5 mg/dl (8.4-10.2); Carbon Dioxide 27 mmol/L (22.0-30.0); Chloride 103 mmol/L (98-107); Chol/HDL Ratio 5.8 (1-3.5); Cholesterol 227 mg/dl (140-200); Estimated Glomerular Filt Rate 100 ml/min (>60); GFR (African American) 121 ML/MIN (>60); Globulin 2.8 g/dL (1.3-3.2); Glucose 103 mg/dl (74-100); HDL Cholesterol 39 mg/dl (40-60); Potassium 4.3 mmoL/L (3.5-5.1); Sodium 139 mmol/L (136-145); Triglycerides 313 mg/dl (30-150); VLDL Cholesterol 63 mg/dL (0-40)
[2024-05-18 10:18] LABS: Direct LDL Cholesterol 86.28 mg/dL (100-129)
[2024-05-18 10:23] LABS: Free T4 (Free Thyroxine) 1.51 ng/dl (0.78-2.19)
[2024-05-18 10:38] LABS: Thyroid Stimulating Hormone 1.29 uIU/mL (0.465-4.68)
== END 2024-05-18 23:59 | disposition home or self-care (01) ==
LOC: LAB 08:05
PROVIDERS: PCP Family Medicine; Visit Provider Physician Assistant
DX: E78.5 Hyperlipidemia, unspecified (principal); E03.9 Hypothyroidism, unspecified
CPT/HCPCS: 36415; 80053; 80061; 84439; 84443

== ENCOUNTER 2024-07-01 09:17 | Outpatient (CLI) | payer MEDICARE, SELFPAY ==
--- NOTE | 2024-07-01 09:19 | XR_ITS ---
FINAL REPORT TECHNIQUE: Bone densitometry calculations of the lumbar spine and left hip were obtained. CLINICAL HISTORY: screening COMPARISON: 10/26/2021 FINDINGS: Using L1-4, the bone mineral density of the spine is 0.970 g/cm2, corresponding to T-score of -0.7. Using the left hip, the bone mineral density of the femoral neck is 0.668 g/cm2, corresponding to a T-score of -1.6. Using the right hip, the bone mineral density of the femoral neck is 0.704 g/cm?, corresponding to a T-score of -1.3. NOTE: T-score: Standard deviation compared with peak bone mass of young adult mean. *Following the recommendations of the International Society of Bone densitometry, classification of hip BMD is based on the lower of two T-scores; total hip or femoral neck. IMPRESSION: Diminished bone mineral density of the bilateral hips consistent with osteopenia. Normal bone mineral density of the lumbar spine. Reviewed, Interpreted and Dictated by Bandar Wynne MD Transcribed by Norma Palomino Authenticated and [facility]
== END 2024-07-01 23:59 | disposition home or self-care (01) ==
LOC: RAD 09:17
PROVIDERS: PCP Family Medicine; Visit Provider Physician Assistant
DX: M85.89 Other specified disorders of bone density and structure, multiple sites (principal)
CPT/HCPCS: 77080

== ENCOUNTER 2024-11-14 07:32 | Outpatient (CLI) | payer MEDICARE, SELFPAY ==
--- OUTSIDE RECORDS SUMMARY | 2023-11-08 05:00 | XMS_ITS ---
Author Organization [facility] Address [address] [place] [id number] Care Team Providers Care Fine Artist Name Role Phone Iron Mcpherson Primary Care Provider [phone] Sonal Chiu [phone] Allergies Allergen (clinical drug ingredient) Drug/Non Drug [...] Status Risk Notes Problem Paresthesia of finger (955982615) Paresthesia of finger (R20.2) Active confirmed Vital Signs Blood pressure systolic 142 mm Hg 11/08/19 24 Blood pressure diastolic 90 mm Hg 024 Heart Rate 72 /min 11/08/2023 Height 60.50 in 11/08/2023 Weight 182.8 lbs 11/08/2023 BMI 35.11 kg/m2 11/08/2023 Encounters Encounter Location Date Provider Diagnosis [facility] [facility] [address] [facility] [address] [place], [place] [id number] 11/08/2023 Sonal Chiu Acquired hypothyroid ism E03.9 ; Hypertriglyceridemia E78.1 [...] phone to repo rt test results, Reason: Provider Name:Sonal Karen Ghosh y, 11/15/2024 11:30:00 AM, [facility] [address] [facility], [address], [place], [place], [id number], Progress Notes * Erika BURGOS LDOB: 8 (69 yo F)Acc No.[id number]:11/08/2023 Progress Notes Patient: Erika CASTLE Provider: NICOLÁS Gunn :1955 A ge:68 Y S ex:Female Date:11/08/2023 Address:[address] [place], [place] [id number] Pcp:Iron Mcpherson Subjective: * Chief Complaints: * [...] Frequency: ,Years: , Determination:. * Medications: T aking Triamcinolone Acetonide 0.1 % Cream 1 application [...] V ITB12 879 239-931 - pg/mL * AramSonal Jones 11/15/2023 8: 45:24 AM > see TE ?Imaging: Nerve Conduction Study (Performed Date - 12/06/2023)?bilateral CTS * AramSonal Jones 11/08/2023 12 :07:41 PM >Symone Garber 11/08/2023 2:22:48 PM > order faxed to Sonal Phipps 12/13/2023 3:30:56 PM > see TE * Follow Up: v ia phone to report test results * Images: Billing Information: * Visit Code: 45005 Office Visit, Est Pt., Level 4. * Procedure Codes: * Electronic signature of NICOLÁS Gatica on 11/14/2024 at 07:36 AM EDT Sign off status: Pending * Provider: NICOLÁS Gunn Date: 0 11/08/2023 Generated for Liliani ng/Faluisg/eTransmitting on: 0 11/14/2024 07:36 AM EDT History and Physical Notes * HPI (History [...]
--- OUTSIDE RECORDS SUMMARY | 2024-05-17 10:30 | XMS_ITS ---
Author Organization [facility] Address [address] [place] [phone] Care Team Providers Care Computerized Table Cutter Name Role Phone Iron Mcpherson Primary Care Provider Sonal Chiu [phone] Allergies Allergen (clinical drug ingredient) Drug/Non Drug [...] 05/17/2024 Encounters Encounter Location Date Provider Diagnosis [facility] [address] [facility] 36 [facility] [address] [place] [phone] 05/17/2024 Sonal Aram Hyperlipidemia, unspecified hyperlipidemia E78.5 and Acquired hypothyroidism E03.9 Assessments Encounter Date Diagnosis (ICD Code) Assessment Notes Treatment Notes Treatment Clinical Notes Section Notes 05/17/2024 Hyperlipidemia, unspecified hyperlipidemia (ICD-10 - E78.5) 05/17/2024 Acquired hypothyroidism (ICD-10 - E03.9) Plan Of Treatment Next Appt Details Follow Up: via phone to repo rt test results, Reason: Provider Name:Sonal Karen Titojeannie y, 11/15/2024 11:30:00 AM, [address] [facility] 36 [facility], [address], [place], [phone], Progress Notes * Erika BURGOS LDOB: [birth year] (69 yo F)Acc No.[id number]:05/17/2024 Progress Notes Patient: Erika CASTLE L Provider: NICOLÁS Gunn :1955 A ge:68 Y S ex:Female Date:05/17/2024 Address[id number] Pcp:Iron Mcpherson Subjective: * Chief Complaints: * [...] Temp: 98.4, BP: 118/76, HR: 56, Nurse: mmklarissa, Ht: 60.50, BMI:36.15. * Examination: G eneral [...] LP 103 38-126 - U/L * Dia Ménedz 05/20/2024 04: 40:47 PM > see phone encounter 2.?Acquired hypothyroidism?LAB: H-TSH (Collection Date & Time - 05/18/2024 08:11 AM)?Normal* Value Reference Range T SH 1.29 0.465-4.68 - uIU/mL * Dia Méndez 05/20/2024 04: 40:47 PM > see phone encounter ?LAB: H-T4 free (Collection Date & Time - 05/18/2024 08:11 AM)?Normal* Value Reference Range T 4F 1.51 0.78-2.19 - ng/dl * Dia Méndez 05/20/2024 04: 40:47 PM > see phone encounter * Procedure Codes: G 2211 Complex e/m visit add on, 3074F SYST BP LT 130 MM HG, 3078F DIAST BP < 80 MM HG * Follow Up: v ia phone to report test results * Images: Billing Information: * Visit Code: 38914 Office Visit, Est Pt., Level 4. * Procedure Codes: G2211 Complex e/m visit add on. 3074F SYST BP LT 130 MM HG. 3078F DIAST BP < 80 MM HG. * Electronic signature of NICOLÁS Gatica on 11/14/2024 at 07:36 AM EDT Sign off status: Pending * Provider: NICOLÁS Gunn Date: 0 05/17/2024 Generated for Printi ng/Faxing/eTransmitting on: 0 11/14/2024 07:36 AM EDT History [...]
--- OUTSIDE RECORDS SUMMARY | 2024-09-19 06:29 | XMS_ITS ---
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 Name Role Phone Iron Mcpherson Primary Care Provider Sonal Chiu [phone] REASON FOR VISIT Lab Order 10/09 Encounters Encounter Location Date Provider Diagnosis [facility] [address] [place] [phone] 09/19/2024 Sonal Chiu Essential hypertensi on I10 ; Acquired hypothyroidism E03.9 and Hyperlipidemia, unspecified hyperlipidemia E78.5 Assessments Encounter Date Diagnosis (ICD Code) Assessment Notes Treatment Notes Treatment Clinical Notes Section Notes 09/19/2024 Essential hypertension (ICD-10 - I10) 09/19/2024 Acquired hypothyroidism (ICD-10 - E03.9) 09/19/2024 Hyperlipidemia, unspecified hyperlipidemia (ICD-10 - E78.5) Plan Of Treatment Pending Test Test Name Order Date H-TSH 09/19/2024 H-CBC 09/19/2024 H-Microalbumine/Creatinine 09/19/2024 H-Lipid Panel 09/19/2024 H-CMP 09/19/2024 H-T4 (Thyroxine) 09/19/2024 Next Appt Details Provider Name:Sonal perez, 11/15/2024 11:30:00 AM, [address], [address], [place], [phone], Progress Notes * Erika BURGOS LDOB: 8 (68 yo F)Acc No.[id number]:09/19/2024 Patient: Erika CASTLE :1955 A ge:68 Y S ex:Female Address:[address] [place] [address] Subjective: * Chief Complaints: * L ab [...] * true * Date: Generated for Koki murphy/Conrad/eTransmitting on: 0 11/14/2024 07:36 AM EDT
--- OUTSIDE RECORDS SUMMARY | 2024-11-14 07:36 | XMS_ITS | Clinical Summary ---
[facility] Address [address] [place] [address] Care Team Providers Care Pump Stitcher Name Role Phone Abraham Avilez MD Primary Care Provider [phone] Social History Tobacco Use Types Packs/Day Years Used Date Smoking Tobacco: Never Assessed Abuse Screen Answer Date Recorded Unsafe at Home or Work/School Not on file Feels Threatened by Someone? Not on file 10/2022 Does Anyone Keep You from Co ntacting Others or Doint Things Outside the Home? Not on file 11/28/2022 Physical Sign of Abuse Present Not on file 1 Housing Stability Answer Date Recorded Current Living Arrangements Not on file 10/2022 Potentially Unsafe Housing Conditions Not on castillo e 11/28/2022 Family and Community Support Answer Mj e Recorded Help with Day-to-Day Activities Not on file 11/28/2022 Lonely or Isolated Not on file 11/28/2022 Employment Answer Date Recorded Do you want help finding or keeping work or a jelani b? Not on file 11/28/2022 Disabilities Answer Date Recorded Concentrating, Remembering, or Making Decisions Difficulty Not on file 11/28/2022 Doing Errands Independently Difficulty Not on fi le 11/28/2022 Education Answer Date Recorded Help with school or training? Not on file Preferred Language Not on file 11/28/2022 Comments Unknown Sex and Gender Information Value Date Recorded Sex Assigned at Not on file Legal Sex Female 12:21 PM EDT Gender Identity Not on file Sexual Orientation Not on file Plan of Treatment Health Maintenance Due Date Last Done Comments DXA SCAN 1955 TDAP/TD VACCINES (1 - Tdap) 1976 COLOGUARD 2002 COLON CANCER SCREENING 5 YEA R SIGMOIDOSCOPY 2002 COLONOSCOPY 2002 [address] CANCER SCREENING 2002 CT COLONOGRAPHY 2002 FECAL OCCULT BLOOD TEST 2002 FIT Testing (1 year) 2002 Pneumococcal Vaccine 50+ (1 of 1 - PCV) 10/31/2007 ZOSTER VACCINE (1 of 2) 10/31/2007 ANNUAL PHYSICAL 03/14/2018 HEPATITIS C SCREENING 03/14/2018 PT PLAN OF CARE 03/14/2018 MAMMOGRAM 03/13/2022 03/13/2020, 02/21, 03/13/2020 INFLUENZA VACCINE 09/20/2024 COVID-19 Vaccine ( season) 2024 Procedures Procedure Name Priority Date/Time Associated Diagnosis Comments SCANNED - MAMMO 03/13/2020 from Last 3 Months or Most Recently Relevant to Health Maintenance Results * SCANNED - MAMMO (03/13/2020) Anatomical Region Laterality Modality Other us Denny Hsu MD CHART REVIEW TABS Final Re sult from Last 3 Months or Most Recently Relevant to Health Maintenance Insurance R Care Teams Pump Stitcher Relationship Specialty Start Date End Date Abraham Avilez MD [address] [facility] [address] [place] [address] PCP - General Family Medicine 03/14/18
--- OUTSIDE RECORDS SUMMARY | 2024-11-14 07:37 | XMS_ITS | Patient Health Record ---
Author Organization [facility] Address [address] [facility] [address] [place] [phone] Care Team Providers Care Coremaking Supervisor Name Role Phone Iron Mcpherson Primary Care Provider [phone] Sonal Chiu Unavailable [phone] Allergies Allergen (clinical drug ingredient) Drug/Non Drug Allergy documented on EMR Reaction Allergy Type Onset Date Status erythromycin Erythromycin Unknown Drug Allergy A ctive Neosporin Unknown Drug Allergy Active clindamycin Clindamycin hives Drug Allergy Act iar Substance with penicillin structure and antibacterial mechanism of action (substance) Penicillins Unknown Drug Allergy Active Substance with sulfonamide structure and antibacterial mechanism of action (substance) Sulfa Antibiotics Unknown Drug Allergy Active Results Component Value Reference Range Notes Bone density Reviewed date:07/17/2024 06:15:04 PM Interpretation:osteopenia, bilateral hips Performing Lab: Notes/Report: osteopenia, bilateral hips Bone density osteopenia, bilateral hips H-TSH Reviewed date:02/09/2024 02:00:33 PM Interpretation: Performing Lab: Notes/Report: TSH 0.24 0.465-4.68 uIU/mL H-Lipid Panel Reviewed date:02/09/2024 02:00:33 PM Interpretation: Performing Lab: Notes/Report: Patient Fasting? Y TRIG 357 30-150 mg/dl CHOL 214 140-200 mg/dl DLDL 84.15 100-129 mg/dL VLDL 71 0-40 mg/dL HDL 36 40-60 mg/dl CHLHDL 5.9 1-3.5 H-T4 free Reviewed date:02/09/2024 02:00:33 PM Interpretation: Performing Lab: Notes/Report: T4F 1.45 0.78-2.19 ng/dl H-TSH Reviewed date:05/20/2024 04:41:00 PM Interpretation:Normal Performing [...] Performing Lab: Notes/Report: T4F 1.51 0.78-2.19 ng/dl Medications Medication SIG (Take, Route, Frequency, Duration) Notes Start Date End Date Status Triamcinolone Acetonide 0.1 % 1 application Externally Three times a day 01/25/2023 Active Fenofibrate 160 MG 1 tablet Orally Once a day; Duration: 90 days 02/09/2024 Active Aspirin 81 MG 1 tablet Orally Once a day; Duration: 30 day(s) Active Synthroid 75 MCG 1 tablet in the morn ing on an empty stomach Orally Once a day; Duration: 90 days 02/09/2024 Active Rosuvastatin Calcium 5 mg TAKE ONE TABLE T BY MOUTH EVERY DAY; Duration: 90 Active Vascepa 1 GM TAKE 2 CAPSULES TWIC E DAILY; Duration: 90 days Active Metoprolol Tartrate 25 MG TAKE 1 TABLET ONCE DAILY; Duration: 90 Active Losartan Potassium 25 MG 1 tab(s) orally once a day; Duration: 30 day(s) Active Multivitamin - 1 tablet Orally Once a day; Duration: 30 day(s) Active Vitamin E 1000 UNIT 1 cap(s) orally BID Active CoQ-10 100 MG 1 cap(s) orally once a day; Duration: 30 day(s) Active RANITIDINE 300 MG 1 TAB(S) ORALLY ONCE A DAY (AT BEDTIME) PRN 02/04/2016 Active Immunizations Vaccine Route Administration Date Status Comme nts xFluzone Intradermal (18-64yrs)-trivalent ID Intradermal 11/23/2011 Administered xFluzone (6mos and older)-trivalent IM Intramuscular 12/03/2009 Administered xFlu shot-36 months and older IM Intramuscular 12/22/2005 Administered xAdministration of injection SC Subcutaneous 07/25/2011 Administered Tetanus Tdap-Adacel (over 7yrs) IM Intramuscular 01/31/2012 Administered COVID 19 Moderna Unknown 02/24/2020 Administered COVID 19 Moderna Unknown 03/25/2020 Administered COVID 19 Moderna Unknown 12/24/2020 Administered Problems Problem Type SNOMED Code ICD Code Onset Dates Problem Status W/U Status Risk Notes Problem Essential hypertension (83526871) Essential hypertension (I10) Active confirmed Problem Solitary nodule of lung (595461095) Lung nodule (R91.1) Active confirmed Problem Hypertriglyceridemia (383289261) Hypertriglyceridemia (E78.1) Active confirmed Problem Osteopenia (471775327) Osteopenia (M85.80) Active confirmed Problem Screening for osteoporosis (325525551) Screening for osteoporosis (Z13.820) Active confirmed Problem Sciatica (57873782) Lumbago with sciatica, right side (M54.41) Active confirmed Problem Sciatica (55464863) Lumbago with sciatica, left side (M54.42) Active confirmed Problem Acquired hypothyroidism (132753143) Acquired hypothyroidism (E03.9) Active confirmed Problem Hyperlipidemia (95885198) Hyperlipidemia, unspecified hyperlipidemia (E78.5) Active confirmed Problem Bilateral carpal tunnel syndrome (03423484622157363) Bilateral carpal tunnel syndrome (G56.03) Active confirmed Problem Tonsil asymmetry (584748333) 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) Active confirmed Problem Paresthesia of finge r (350213525) Paresthesia of finger (R20.2) Active confirmed Problem Personal history of primary malignant neoplasm of breast (579314486) History of malignant neoplasm of right breast (Z85.3) Active confirmed Vital Signs Heart Rate 56 /min 05/17/2024 Blood pressure diastolic 76 mm Hg 05/17/2024 Height 60.50 in 05/17/2024 Blood pressure systolic 118 mm Hg 05/17/2024 Weight 188.2 lbs 05/17/2024 BMI 36.15 kg/m2 05/17/2024 Encounters Encounter Location Date Provider Diagnosis [facility] [address] [facility] [address] [place], [place] [id number] 05/17/2024 Sonal Crowdy Hyperlipidemia, unspecified hyperlipidemia E78.5 and Acquired hypothyroidism E03.9 [facility] [address] [facility] [address] [place], [place] [id number] 11/15/2023 Sonal Crowdy [facility] [address] [place], [place] [id number] 12/13/2023 Sonal Crowdy Bilateral carpal roland marko syndrome G56.03 [facility] [address] [place], [place] [id number] 01/30/2024 Sonal Crowdy Hyperlipidemia, unspecified hyperlipidemia E78.5 and Acquired hypothyroidism E03.9 [facility] [address] [place] [id number] 02/09/2024 Sonal Crowdy [facility] [address] [facility] [address] [place], [place] [id number] 05/20/2024 Sonal Chiu [facility] [address] [place], [place] [id number] 06/21/2024 Sonal Chiu [facility] [address] [place] [id number] 07/17/2024 Sonal Chiu [facility] [address] [place] [id number] 08/14/2024 Iron Mcpherson [facility] [address] [place] [id number] 09/19/2024 Sonal Chiu Essential hypertensi on I10 ; Acquired hypothyroidism E03.9 and Hyperlipidemia, unspecified hyperlipidemia E78.5 Assessments Encounter Date Diagnosis (ICD Code) Assessment Notes Treatment Notes Treatment Clinical Notes Section Notes 12/13/2023 Bilateral carpal tunnel syndrome (ICD-10 - G56.03) 05/17/2024 Acquired hypothyroidism (ICD-10 - E03.9) 05/17/2024 Hyperlipidemia, unspecified hyperlipidemia (ICD-10 - E78.5) 09/19/2024 Essential hypertension (ICD-10 - I10) 09/19/2024 Acquired hypothyroidism (ICD-10 - E03.9) 01/30/2024 Hyperlipidemia, unspecified hyperlipidemia (ICD-10 - E78.5) 01/30/2024 Acquired hypothyroidism (ICD-10 - E03.9) 09/19/2024 Hyperlipidemia, unspecified hyperlipidemia (ICD-10 - E78.5) Plan Of Treatment Pending Test Test Name Order Date H-TSH 09/19/2024 H-CBC 09/19/2024 H-Microalbumine/Creatinine 09/19/2024 H-Lipid Panel 09/19/2024 H-CMP 03/17/2021 H-CMP 09/19/2024 H-T4 (Thyroxine) 09/19/2024 Next Appt Details Provider Name:Sonal perez, 11/15/2024 11:30:00 AM, [address], [place], [place], [id number], Insurance Providers Payer Name Payer Address Payer Phone Subscriber Number Group Number Insured Name Patient Relationship to Insured Coverage Start Date Coverage End Date [employer] (MEDICAR E) [address] [address] [place] [address] [phone] [id number] Erika BURGOS Self - patient is the insured Medications Administered Medication Instructions Date of Administration Dosage Notes Dexamethasone 04/21/2006 4 mg Dexamethasone 02/01/2017 1 mL Medical (General) History Medical History History ICD Code Hypothyroidism-post surgical goiter Hypertension hypertriglyceridemia ovarian cyst Zostavax vaccine 07/25/11 Breast cancer, Dx: 2009 CT chest/abd/pelvis 2016 for cancer surv eilance Surgical History Surgery Date(Month/Year) Thyroidectomy Total 07/2004 Tubal Ligation RT Mastectomy 02/2009 Uterine Polyp Removal 08/20/2012
[2024-11-14 07:51] LABS: Hematocrit 44.4 % (37.0-47.0); Hemoglobin 15.0 g/dL (12.2-16.2); Immature Granulocytes % 0.2 %; Mean Corpuscular HGB Conc 33.8 g/dL (31.8-35.4); Mean Corpuscular Hemoglobin 31.4 pg (27.0-31.2); Mean Corpuscular Volume 92.9 fl (81-99); Nucleated Red Blood Cells % 0 %; Platelet Count 262 K/mm3 (142-424); Red Blood Count 4.78 M/mm3 (4.20-5.40); Red Cell Distribution Width-SD 43.8 fL; White Blood Count 4.4 K/mm3 (4.8-10.8)
[2024-11-14 08:35] LABS: Alanine Aminotransferase 25 U/L (12-78); Albumin Level 4.1 g/dl (3.5-5.0); Albumin/Globulin Ratio 1.6 (1.1-1.8); Alkaline Phosphatase 116 U/L (38-126); Anion Gap 10.5 mEq/L (5-15); Aspartate Amino Transferase 30 U/L (14-36); Bilirubin,Total 0.7 mg/dl (0.2-1.3); Blood Urea Nitrogen 19 mg/dl (7-17); Calcium 9.3 mg/dl (8.4-10.2); Carbon Dioxide 27 mmol/L (22.0-30.0); Chloride 103 mmol/L (98-107); Creatinine,Serum 0.60 mg/dl (0.52-1.04); Estimated Glomerular Filt Rate 100 ml/min (>60); GFR (African American) 121 ML/MIN (>60); Globulin 2.5 g/dL (1.3-3.2); Glucose 95 mg/dl (74-100); HDL Cholesterol 36 mg/dl (40-60); Potassium 4.5 mmoL/L (3.5-5.1); Sodium 136 mmol/L (136-145); Total Protein,Serum 6.6 g/dl (6.3-8.2)
[2024-11-14 08:52] LABS: T4 (Thyroxine) 8.9 ug/dl (5.53-11.0)
[2024-11-14 08:55] LABS: Cholesterol 330 mg/dl (140-200); Triglycerides 598 mg/dl (30-150)
[2024-11-14 09:05] LABS: Thyroid Stimulating Hormone 6.47 uIU/mL (0.465-4.68)
== END 2024-11-14 23:59 | disposition home or self-care (01) ==
LOC: LAB 07:34
PROVIDERS: PCP Physician Assistant; Visit Provider Physician Assistant
DX: E03.9 Hypothyroidism, unspecified (principal); E78.5 Hyperlipidemia, unspecified; I10 Essential (primary) hypertension
CPT/HCPCS: 36415; 80053; 80061; 82043; 82570; 84436; 84443; 85025

== ENCOUNTER 2024-11-18 08:33 | Outpatient (CLI) | payer MEDICARE, SELFPAY ==
--- OUTSIDE RECORDS SUMMARY | 2024-05-17 10:30 | XMS_ITS ---
[facility] Address [address] [place] [phone] Care Team Providers Care [employer] Repairer Name Role Phone Iron Mcpherson Primary Care Provider Sonal Chiu [phone] Allergies Allergen (clinical drug ingredient) Drug/Non Drug [...] 05/17/2024 Encounters Encounter Location Date Provider Diagnosis [facility] [address] [facility] [address] [place], [place] [phone] 05/17/2024 Sonal Chiu Hyperlipidemia, unspecified hyperlipidemia E78.5 [...] Erika BURGOS LDOB: [birth year] (69 yo F)Acc No.[id number]:05/17/2024 Progress Notes Patient: Erika CASTLE Provider: NICOLÁS Gunn :1955 A ge:68 Y S ex:Female Date:05/17/2024 Address[place], [id number] Pcp:Iron Mcpherson Subjective: * Chief Complaints: * [...] * Images: Billing Information: * Visit Code: 90958 Office Visit, Est Pt., Level 4. * Procedure Codes: G2211 Complex e/m visit add on. 3074F SYST BP LT 130 MM HG. 3078F DIAST BP < 80 MM HG. * Electronic signature of NICOLÁS Gatica on 11/18/2024 at 08:41 AM EDT Sign off status: Pending * Provider: NICOLÁS Gunn Date: 0 05/17/2024 Generated for Koki murphy/Conrad/eTransmitting on: 0 11/18/2024 08:41 AM EDT History and Physical Notes * [...]
--- OUTSIDE RECORDS SUMMARY | 2024-09-19 06:29 | XMS_ITS ---
Author Organization [facility] Address [address] [facility] [address] [place] [phone] Care Team Providers Care Hop Worker Name Role Phone Iron Mcpherson Primary Care Provider Sonal Chiu [phone] Results Component Value Reference Range Notes H-TSH Reviewed date:11/14/2024 12:55:46 PM Interpretation: Performing Lab: Notes/Report: H-CBC Reviewed date:11/14/2024 12:55:58 PM Interpretation: Performing Lab: Notes/Report: H-Microalbumine/Creatinine Reviewed date:11/14/2024 12:56:10 PM Interpretation: Performing Lab: Notes/Report: H-Lipid Panel Reviewed date:11/14/2024 12:56:23 PM Interpretation: Performing Lab: Notes/Report: H-CMP Reviewed date:11/14/2024 12:56:36 PM Interpretation: Performing Lab: Notes/Report: H-T4 (Thyroxine) Reviewed date:11/14/2024 12:56:49 PM Interpretation: Performing Lab: Notes/Report: REASON FOR VISIT Lab Order 10/09 Encounters Encounter Location Date Provider Diagnosis [facility] [address] [place] [phone] 09/19/2024 Sonal Chiu Essential hypertensi on I10 ; Acquired hypothyroidism E03.9 and Hyperlipidemia, unspecified hyperlipidemia E78.5 Assessments Encounter Date Diagnosis (ICD Code) Assessment Notes Treatment Notes Treatment Clinical Notes Section Notes 09/19/2024 Essential hypertension (ICD-10 - I10) 09/19/2024 Acquired hypothyroidism (ICD-10 - E03.9) 09/19/2024 Hyperlipidemia, unspecified hyperlipidemia (ICD-10 - E78.5) Plan Of Treatment No Information Progress Notes * Erika BURGOS LDOB: 8 (68 yo F)Acc No.[id number]:09/19/2024 Patient: Erika CASTLE :1955 A ge:68 Y S ex:Female Address:[address] [place] [address] [place] [address] Subjective: * Chief Complaints: * L ab Order 10/09 * Medical History: * Surgical History: * Hospitalization/Major Diagno stic Procedure: * Medications: Objective: * Vitals: * Physical Examination: Assessment: * Assessment: 1. E ssential hypertension - I10 2 . A cquired hypothyroidism - E03.9 ? 3 . H yperlipidemia, unspecified hyperlipidemia - E78.5 Plan: * Treatment: 2. A cquired hypothyroidism L AB: H-TSH L AB: H-T4 (Thyroxine) 3. H yperlipidemia, unspecified hyperlipidemia L AB: H-Lipid Panel * Procedure Codes: * true * Date: Generated for Koki murphy/Conrad/Elenaitting on: 0 11/18/2024 08:40 AM EDT
--- OUTSIDE RECORDS SUMMARY | 2024-11-15 07:30 | XMS_ITS ---
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 Name Role Phone Iron Mcpherson Primary Care Provider Sonal Chiu [phone] Allergies Allergen (clinical drug ingredient) Drug/Non Drug [...] (substance) Sulfa Antibiotics Unknown Drug Allergy Active REASON FOR VISIT check up and Annual [...] Administered Prevnar (PCV20) IM Intramuscular 11/15/2024 Administered Vital Signs Weight 183.8 lbs 11/15/2024 Blood pressure systolic 130 mm Hg 11/16/19 25 Blood pressure diastolic 80 mm Hg 025 Heart Rate 80 /min 11/15/2024 Height 60.50 in 11/15/2024 BMI 35.3 kg/m2 11/15/2024 Encounters Encounter Location Date Provider Diagnosis [facility] [address] [phone] 11/15/2024 Sonal Chiu Adult general medica l examination Z00.00 ; Acquired hypothyroidism E03.9 ; Hyperlipidemia, unspecified hyperlipidemia E78.5 ; Hypertriglyceridemia E78.1 ; Pulmonary nodules R91.8 ; Encounter for immunization Z23 and Essential hypertension I10 Assessments Encounter Date Diagnosis (ICD Code) Assessment [...] 11/15/2024 Essential hypertensi on (ICD-10 - I10) Plan Of Treatment Medication Medication Name Sig [...] Erika BURGOS LDOB: 8 (69 yo F)Acc No.[id number]:11/15/2024 Annual Wellness Visit Patient: Rosio ELLIE Erika Alex Provider: NICOLÁS Gunn :1955 A ge:69 Y S ex:Female Date:11/15/2024 Address:[place], [id number] Pcp:Iron Mcpherson Subjective: * Chief Complaints: * 1 . check up and Annual Wellness Visit. * HPI: H PI: Patient is here today for a scheduled check up a nd?a Medicare Annual Wellness Visit. See 11/14/2024 [facility] lab results in patient labs. C [...] 7 . E ssential hypertension - I10 Plan: * Treatment: 2. A cquired hypothyroidism [...] CT Scan : Chest with IV contrast * Immunizations: Fluzone High Dose (65yr and older) : 0.5 mL (Route: Intramuscular) given by Tabitha Chow , MMErin on Left Deltoid (Encounter for immunization) Prevnar (PCV20) : 0.5 mL (Route: Intramuscular) given by Tabitha Chow , MMErin on Right Deltoid (Encounter for immunization) * Procedure Codes: G 0438 ANNUAL WELLNES VST; PERSNL PPS INIT, Modifiers: 25 , G2211 Complex e/m visit add on, 1090F PRES/ABSN URINE INCON ASSESS, 3288F FALL RISK ASSESSMENT DOCD, 1170F FXNL STATUS ASSESSED, 1126F AMNT PAIN NOTED NONE PRSNT, 1159F MED LIST DOCD IN RCRD, 1003F LEVEL OF ACTIVITY ASSESS, 1036F TOBACCO NON-USER, 3017F COLORECTAL CA SCREEN DOC REV, G9899 Scrn willis perf rslts doc, G8399 PT W/DXA DOCUMENT OR ORDER, 13399 PCV20 VACCINE IM * Preventive Medicine: Counseling: E motional health: [...] * Images: Billing Information: * Visit Code: 71108 Office Visit, Est Pt., Level 3. * Procedure Codes: G0438 ANNUAL WELLNES VST; PERSNL PPS INIT. Modifiers: 25 G2211 Complex e/m visit add on. 1090F PRES/ABSN URINE INCON ASSESS. 3288F FALL RISK ASSESSMENT DOCD. 1170F FXNL STATUS ASSESSED. 1126F AMNT PAIN NOTED NONE PRSNT. 1159F MED LIST DOCD IN RCRD. 1003F LEVEL OF ACTIVITY ASSESS. 1036F TOBACCO NON-USER. 3017F COLORECTAL CA SCREEN DOC REV. G9899 Scrn willis perf rslts doc. G8399 PT W/DXA DOCUMENT OR ORDER. 45117 PCV20 VACCINE IM. * Electronic signature of NICOLÁS Gatica on 11/18/2024 at 08:41 AM EDT Sign off status: Pending * Provider: NICOLÁS Gunn Date: 0 11/15/2024 Generated for Koki murphy/Conrad/Elenaitting on: 0 11/18/2024 08:41 AM EDT History [...] HPI [facility] Medicare Annual Wellness Visit. See 11/14/2024 [facility] lab results in patient labs Physical [...]
--- NOTE | 2024-11-18 08:40 | CT_ITS ---
FINAL REPORT TECHNIQUE: Routine axial images were obtained from the lung apices to below the diaphragm following IV contrast administration. Individualized dose reduction techniques using automated exposure control or adjustment of the mA and/or kV according to the patient size were employed. CLINICAL HISTORY: PULMONARY NODULES COMPARISON: None FINDINGS: CT CHEST WITH CONTRAST: Mediastinal vasculature is adequately opacified. No evidence of aneurysm or dissection is identified. There is a 2 mm nodule in the periphery of the right midlung, best seen on image #34 of series 2. There is a pleural-based nodule in the periphery of the right lung base, measuring 5 mm in size. Best seen on image #46 of series 2. A 3 mm nodule is seen in the left lung base, image #47 of series 2. There is a 4 mm nodule, pleural-based, in the left upper lobe seen on image #18 of series 2. IMPRESSION: Multiple small pulmonary nodules are noted bilaterally as described above. Per Fleischner criteria, a repeat CT examination in 12 months is suggested for further evaluation. Reviewed, Interpreted and Dictated by Bandar Wynne MD Transcribed by Norma Palomino Authenticated and [facility]
--- OUTSIDE RECORDS SUMMARY | 2024-11-18 08:40 | XMS_ITS | Clinical Summary ---
[facility] Address [address] [place] [address] Care Team Providers Care Benefits Advisor Name Role Phone Abraham Avilez MD Primary Care Provider [phone] Social History Tobacco Use Types Packs/Day Years [...] to Health Maintenance Insurance R Care Teams Benefits Advisor Relationship Specialty Start Date End Date Abraham Avilez MD [address] [facility] [address] [place] [id number] PCP - General Family Medicine 03/14/18
--- OUTSIDE RECORDS SUMMARY | 2024-11-18 08:42 | XMS_ITS | Patient Health Record ---
Author Organization [facility] Address [address] [facility] [address] [place] [id number] Care Team Providers Care Manager Nursing Name Role Phone Iron Mcpherson Primary Care Provider Sonal Chiu Unavailable [phone] Allergies Allergen (clinical drug ingredient) Drug/Non Drug [...] date:11/14/2024 12:56:49 PM Interpretation: Performing Lab: Notes/Report: H-CBC Reviewed date:11/15/2024 11:51:55 AM Interpretation:WBC 4.4, MCH 31.4, NE% 33.8, MO% 11.4, NE# 1.5 Performing Lab: Notes/Report: WBC 4.4 4.8-10.8 K/mm3 RBC 4.78 4.20-5.40 M/mm3 HGB 15.0 12.2-16.2 g/dL HCT 44.4 37.0-47.0 % MCV 92.9 81-99 fl MCH 31.4 27.0-31.2 pg MCHC 33.8 31.8-35.4 g/dL RDW-SD 43.8 RDW 12.9 11.5-17.5 % PLT 262 142-424 K/mm3 MPV 10.4 7.4-10.4 fl NE% 33.8 37.0-80.0 % LY% 49.9 10-50 % MO% 11.4 1.7-9.3 % EO% 3.6 0.1-12.0 % BA% 1.1 0.1-2.0 % NRBC% 0 IG% 0.2 NE# 1.5 1.8-7.8 K/mm3 LY# 2.2 0.7-4.5 K/mm3 MO# 0.5 0.1-1.0 K/mm3 EO# 0.2 0.0-0.4 Kmm3 BA# 0.1 0-0.2 K/mm3 NRBC# 0 IG# 0.01 H-T4 (Thyroxine) Reviewed date:11/15/2024 11:51:55 AM Interpretation:Normal Performing Lab: Notes/Report: T4 8.9 5.53-11.0 ug/dl H-CMP Reviewed date:11/15/2024 11:51:55 AM Interpretation:BUN 19 Performing Lab: Notes/Report: NA 136 136-145 mmol/L K 4.5 3.5-5.1 mmoL/L CL 103 98-107 mmol/L CO2 27 22.0-30.0 mmol/L GAP 10.5 5-15 mEq/L BUN 19 7-17 mg/dl CREATT 0.60 0.52-1.04 mg/dl GFRAA 121 >60 ML/MIN EGFR 100 >60 ml/min GLU 95 74-100 mg/dl CA 9.3 8.4-10.2 mg/dl BILIT 0.7 0.2-1.3 mg/dl AST 30 14-36 U/L ALT 25 12-78 U/L TP 6.6 6.3-8.2 g/dl ALB 4.1 3.5-5.0 g/dl GLOB 2.5 1.3-3.2 g/dL AGRATIO 1.6 1.1-1.8 ALP 116 38-126 U/L H-Lipid Panel Reviewed date:11/15/2024 11:51:55 AM Interpretation:Trigs 598, Chol 330, LDL 93.49, HDL 36, CHLHDL 9.2 Performing Lab: Notes/Report: Patient Fasting? Y TRIG 598 30-150 mg/dl If Triglyceride value exceeds 400mg/dL, the VLDL value has no clinical significance. The calculations are accurate for specimens in which the TGL concentration is no more than 400mg/dL and which are not from persons who have Type III Hyperlipoproteinemia. CHOL 330 140-200 mg/dl DLDL 93.49 100-129 mg/dL HDL 36 40-60 mg/dl CHLHDL 9.2 1-3.5 H-Microalbumine/Creatinine Reviewed date:11/15/2024 11:51:55 AM Interpretation:Normal Performing Lab: Notes/Report: UCREAT 59 Not Estab. mg/dL Random urine reference range not established. 24 hour urine samples recommended. MICROALB 8.000 0-16.7 mg/L MALBCREAT 13.5 Units: mg/g creat Normal: 0 - 29 Moderately Increased: 30 - 300 Severely Increased: >300 H-TSH Reviewed date:11/15/2024 11:51:55 AM Interpretation:6.47 Performing Lab: Notes/Report: TSH 6.47 0.465-4.68 uIU/mL Bone density Reviewed date:07/17/2024 06:15:04 PM Interpretation:osteopenia, bilateral hips Performing Lab: Notes/Report: osteopenia, bilateral hips Bone density osteopenia, bilatera l hips H-TSH Reviewed date:05/20/2024 04:41:00 PM Interpretation:Normal Performing [...] Performing Lab: Notes/Report: T4F 1.51 0.78-2.19 ng/dl H-TSH Reviewed date:02/09/2024 02:00:33 PM Interpretation: Performing Lab: Notes/Report: TSH 0.24 0.465-4.68 uIU/mL H-Lipid Panel Reviewed date:02/09/2024 02:00:33 PM Interpretation: Performing Lab: Notes/Report: Patient Fasting? Y TRIG 357 30-150 mg/dl CHOL 214 140-200 mg/dl DLDL 84.15 100-129 mg/dL VLDL 71 0-40 mg/dL HDL 36 40-60 mg/dl CHLHDL 5.9 1-3.5 H-T4 free Reviewed date:02/09/2024 02:00:33 PM Interpretation: Performing Lab: Notes/Report: T4F 1.45 0.78-2.19 ng/dl Medications Medication SIG (Take, Route, Frequency, Duration) Notes Start Date End Date Status Levothyroxine Sodium 100 MCG 1 tablet in the morning on an empty stomach Orally Once a day 11/15/2024 Active Metoprolol Tartrate 25 MG TAKE 1 TABLET ONCE DAILY; Duration: 90 Active Fenofibrate 160 MG 1 tablet Orally Once a day 02/09/2024 Active Losartan Potassium 25 MG 1 tab(s) orally once a day; Duration: 30 day(s) Active CoQ-10 100 MG 1 cap(s) orally once a day; Duration: 30 day(s) Active RANITIDINE 300 MG 1 TAB(S) ORALLY ONCE A DAY (AT BEDTIME) PRN 02/04/2016 Active Multivitamin - 1 tablet Orally Once [...] TWIC E DAILY; Duration: 90 days Not-Taking Immunizations Vaccine Route Administration Date Status Comme nts COVID 19 Moderna Unknown 02/24/2020 Administered COVID 19 Moderna Unknown 03/25/2020 Administered COVID 19 Moderna Unknown 12/24/2020 Administered Fluzone High Dose (65yr and older) IM Intramuscular 11/15/2024 Administered Prevnar (PCV20) IM Intramuscular 11/15/2024 Administered Tetanus Tdap-Adacel (over 7yrs) IM Intramuscular 01/31/2012 Administered xAdministration of injection SC Subcutaneous 07/25/2011 Administered xFlu shot-36 months and older IM Intramuscular 12/22/2005 Administered xFluzone (6mos and older)-trivalent IM Intramuscular 12/03/2009 Administered xFluzone Intradermal (18-64yrs)-trivalent ID Intradermal 11/23/2011 Administered Problems Problem Type SNOMED Code ICD Code Onset Dates Problem Status W/U Status Risk Notes Problem Essential hypertension (47762057) Essential hypertension (I10) Active confirmed Problem Solitary nodule of lung (956375262) Lung nodule (R91.1) Active confirmed Problem Hypertriglyceridemia (415831847) Hypertriglyceridemia (E78.1) Active confirmed Problem Osteopenia (740595243) Osteopenia (M85.80) Active confirmed Problem Screening for osteoporosis (784023737) Screening for osteoporosis (Z13.820) Active confirmed Problem Sciatica (99213990) Lumbago with sciatica, right side (M54.41) Active confirmed Problem Sciatica (31762411) Lumbago with sciatica, left side (M54.42) Active confirmed Problem Acquired hypothyroidism (897948404) Acquired hypothyroidism (E03.9) Active confirmed Problem Hyperlipidemia (25575396) Hyperlipidemia, unspecified hyperlipidemia (E78.5) Active confirmed Problem Bilateral carpal tunnel syndrome (46846907428000876) Bilateral carpal tunnel syndrome (G56.03) Active confirmed Problem Tonsil asymmetry (708167975) 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) Active confirmed Problem Paresthesia of finge r (898705951) Paresthesia of finger (R20.2) Active confirmed Problem Personal history of primary malignant neoplasm of breast (638325824) History of malignant neoplasm of right breast (Z85.3) Active confirmed Vital Signs Heart Rate 80 /min 11/15/2024 Blood pressure diastolic 80 mm Hg 11/15/2024 Height 60.50 in 11/15/2024 Blood pressure systolic 130 mm Hg 11/15/2024 Weight 183.8 lbs 11/15/2024 BMI 35.3 kg/m2 11/15/2024 Encounters Encounter Location Date Provider Diagnosis [facility] [address] [facility] [address] [place] [id number] 05/17/2024 Sonal Chiu Hyperlipidemia, unsp ecified hyperlipidemia E78.5 and Acquired hypothyroidism E03.9 [facility] [address] [facility] [address] [place] [id number] 11/15/2024 Sonal Chiu Adult general medica l examination Z00.00 ; Acquired hypothyroidism E03.9 ; Hyperlipidemia, unspecified hyperlipidemia E78.5 ; Hypertriglyceridemia E78.1 ; Pulmonary nodules R91.8 ; Encounter for immunization Z23 and Essential hypertension I10 [facility] [address] [place], [place] [id number] 12/13/2023 Sonal Aram Bilateral carpal roland marko syndrome G56.03 [facility] [address] [place], [place] [id number] 01/30/2024 Sonal Aram Hyperlipidemia, unsp ecified hyperlipidemia E78.5 and Acquired hypothyroidism E03.9 [facility] [address] [place], [place] [id number] 02/09/2024 Sonal Crowdy [facility] [address] [place], [place] [id number] 05/20/2024 Sonal Titody [facility] [address] [place], [place] [id number] 06/21/2024 Sonal Titody [facility] [address] [place], [place] [id number] 07/17/2024 Sonal Titody [facility] [address] [place], [place] [id number] 08/14/2024 Iron Edison Mcpherson [facility] [address] [place], [place] [id number] 09/19/2024 Sonal Aram Essential hypertensi on I10 ; Acquired hypothyroidism E03.9 and Hyperlipidemia, unspecified hyperlipidemia E78.5 [facility] [address] [place], [place] [id number] 11/15/2024 Sonal Chiu Assessments Encounter Date Diagnosis (ICD Code) Assessment Notes Treatment Notes Treatment Clinical Notes Section Notes 12/13/2023 Bilateral carpal roland marko syndrome (ICD-10 - G56.03) 05/17/2024 Acquired hypothyroid ism (ICD-10 - E03.9) 05/17/2024 Hyperlipidemia, unspecified hyperlipidemia (ICD-10 - E78.5) 09/19/2024 Essential hypertensi on (ICD-10 - I10) 11/15/2024 Acquired hypothyroid ism (ICD-10 - E03.9) 11/15/2024 Adult general medica l examination (ICD-10 - Z00.00) Patient instructed to return to office Annually for Annual Wellness Visits to include annual screenings of Pain assessment, Functional Ability assessment, Cognitive Ability assessment, Fall Risk assessment, Depression screening and Bladder control screening. 11/15/2024 Hyperlipidemia, unspecified hyperlipidemia (ICD-10 - E78.5) 01/30/2024 Hyperlipidemia, unspecified hyperlipidemia (ICD-10 - E78.5) 09/19/2024 Acquired hypothyroid ism (ICD-10 - E03.9) 01/30/2024 Acquired hypothyroid ism (ICD-10 - E03.9) 09/19/2024 Hyperlipidemia, unspecified hyperlipidemia (ICD-10 - E78.5) 11/15/2024 Hypertriglyceridemia (ICD-10 - E78.1) Patient has not been taking fenofibrate. Will start on this. 11/15/2024 Pulmonary nodules (ICD-10 - R91.8) 11/15/2024 Encounter for immunization (ICD-10 - Z23) 11/15/2024 Essential hypertensi on (ICD-10 - I10) Plan Of Treatment Pending Test Test Name Order Date CT Scan : Chest with IV contrast 025 H-CMP 03/17/2021 Insurance Providers Payer Name Payer Address Payer Phone Subscriber Number Group Number Insured Name Patient Relationship to Insured Coverage Start Date Coverage End Date [employer] (MEDICAR E) [address] [address] [place] [address] [id number] Erika BURGOS Self - patient is the [...]
[2024-11-18] MEDS: SODIUM CHLORIDE 0.9% 10ML SYR (RAD ONLY) 10 ML IV (08:59)
[2024-11-18] MEDS: IOPAMIDOL-370 (76%);100ML BOTTLE 75 ML IV (09:00)
== END 2024-11-18 23:59 | disposition home or self-care (01) ==
PROVIDERS: PCP Physician Assistant; Visit Provider Physician Assistant
DX: R91.8 Other nonspecific abnormal finding of lung field (principal)
CPT/HCPCS: 71260; Q9967

== ENCOUNTER 2024-11-25 09:19 | Outpatient (CLI) | payer MEDICARE, SELFPAY ==
--- OUTSIDE RECORDS SUMMARY | 2024-05-17 10:30 | XMS_ITS ---
Author Organization [facility] Address [address] [place] [id number] Care Team Providers Care Cruller Maker Name Role Phone Iron Mcpherson Primary Care Provider [phone] Sonal Chiu [phone] Allergies Allergen (clinical drug ingredient) Drug/Non Drug [...] (AT BEDTIME) PRN 02/04/2016 Active Vital Signs Weight 188.2 lbs 05/17/2024 Blood pressure systolic 118 mm Hg 05/18/19 25 Blood pressure diastolic 76 mm Hg 025 Heart Rate 56 /min 05/17/2024 Height 60.50 in 05/17/2024 BMI 36.15 kg/m2 05/17/2024 Encounters Encounter Location Date Provider Diagnosis [facility] [address] [facility] [address] [place], [place] [phone] 05/17/2024 Sonal Chiu Hyperlipidemia, unspecified hyperlipidemia E78.5 [...] Erika BURGOS LDOB: [birth year] (69 yo F)Acc No.[id number]:05/17/2024 Progress Notes Patient: Erika CASTLE Provider: NICOLÁS Gunn :1955 A ge:68 Y S ex:Female Date:05/17/2024 Address[place], [id number] Pcp:Iron Mcpherson Subjective: * Chief Complaints: * [...] * Images: Billing Information: * Visit Code: 44755 Office Visit, Est Pt., Level 4. * Procedure Codes: G2211 Complex e/m visit add on. 3074F SYST BP LT 130 MM HG. 3078F DIAST BP < 80 MM HG. * Electronic signature of NICOLÁS Gatica on 11/25/2024 at 09:25 AM EDT Sign off status: Pending * Provider: NICOLÁS Gunn Date: 0 05/17/2024 Generated for Koki murphy/Conrad/eTransmitting on: 1 09:25 AM EDT History and Physical Notes * [...]
--- OUTSIDE RECORDS SUMMARY | 2024-11-15 07:30 | XMS_ITS ---
[facility] Address [address] [place] [phone] Care Team Providers Care Vocational Rehabilitation Supervisor Name Role Phone Iron Mcpherson Primary Care Provider Sonal Chiu Unavailable [phone] Allergies Allergen (clinical drug ingredient) Drug/Non Drug [...] Scan : Chest with IV cont rast (Not yet reviewed by provider) Interpretation:multiple small pulmonary nodules bilaterally, recommend annual [...] Status Risk Notes Problem Obese class II (256331739998 105) BMI 35.0-35.9,a dult (Z68.35) Active confirmed Vital Signs Weight 183.8 lbs 11/15/2024 Blood pressure systolic 130 mm Hg 11/16/19 25 Blood pressure diastolic 80 mm Hg 025 Heart Rate 80 /min 11/15/2024 Height 60.50 in 11/15/2024 BMI 35.3 kg/m2 11/15/2024 Encounters Encounter Location Date Provider Diagnosis [facility] [address] [facility] [address] [place] [phone] 11/15/2024 Sonal Chiu Adult general medica l [...] n taking fenofibrate. Will start on this. Pending Test Test Name Order Date CT Scan : Chest with IV contrast 025 Next Appt Details Follow Up: As directed by MD , Reason: Progress Notes * Erika BURGOS LDOB: 8 (69 yo F)Acc No.[id number]:11/15/2024 Annual Wellness Visit Patient: Erika CASTLE Alex Provider: NICOLÁS Gunn :1955 A ge:69 Y S ex:Female Date:11/15/2024 Address:[address] [place] [address], [place], [id number] Pcp:Iron Mcpherson Subjective: * Chief Complaints: * 1 . check up and Annual Wellness Visit. * HPI: H PI: Patient is here today for a scheduled check up a nd?a Medicare Annual Wellness Visit. See 11/14/2024 [facility] lab results in patient labs. C ardiology: [...] O steopenia - M85.80 1 0. B ID 35.0-35.9,adult - Z68.35 ? Plan: * Treatment: [...] doc, G8399 PT W/DXA DOCUMENT OR ORDER, 07013 PCV20 VACCINE IM, G8510 NEG SCR Depression [...] * Images: Billing Information: * Visit Code: 35595 Office Visit, Est Pt., Level 3. Modifiers: [...] doc. G8399 PT W/DXA DOCUMENT [place] ORDER. 85[address] PCV20 VACCINE IM. G8510 NEG SCR Depression [...] Gunn Date: 0 11/15/2024 Generated for Koki murphy/Conrad/eTazitting on: 1 09:25 AM EDT History and [...] HPI Patient is here today for a [facility] check up and a Medicare Annual Wellness Visit. See 11/14/2024 [facility] lab results in patient labs Physical Examination [...]
--- OUTSIDE RECORDS SUMMARY | 2024-11-25 09:25 | XMS_ITS | Patient Health Record ---
Author Organization [facility] Address [address] [facility] [address] [place] [id number] Care Team Providers Care Hunter Trapper Name Role Phone Iron Mcpherson Primary Care Provider [phone] Sonal Chiu Unavailable [phone] Allergies Allergen (clinical drug ingredient) Drug/Non Drug [...] Performing Lab: Notes/Report: T4F 1.51 0.78-2.19 ng/dl H-Microalbumine/Creatinine Reviewed date:11/15/2024 11:51:55 AM Interpretation:Normal Performing Lab: Notes/Report: UCREAT 59 Not Estab. mg/dL Random urine reference range not established. 24 hour urine samples recommended. MICROALB 8.000 0-16.7 mg/L MALBCREAT 13.5 Units: mg/g creat Normal: 0 - 29 Moderately Increased: 30 - 300 Severely Increased: >300 H-T4 (Thyroxine) Reviewed date:11/15/2024 11:51:55 AM Interpretation:Normal [...] HDL 36 40-60 mg/dl CHLHDL 9.2 1-3.5 H-CBC Reviewed date:11/15/2024 11:51:55 AM Interpretation:WBC 4.4, [...] 0.1 0-0.2 K/mm3 NRBC# 0 IG# 0.01 H-TSH Reviewed date:11/15/2024 11:51:55 AM Interpretation:6.47 Performing Lab: Notes/Report: TSH 6.47 0.465-4.68 uIU/mL CT Scan : Chest with IV cont rast (Not yet reviewed by provider) Interpretation:multiple small pulmonary nodules bilaterally, recommend annual f/u Performing Lab: Notes/Report: multiple small pulmonary nodules bilaterally, recommend annual f/u Bone density Reviewed date:07/17/2024 06:15:04 PM Interpretation:osteopenia, bilateral hips Performing Lab: Notes/Report: osteopenia, bilateral hips Bone density osteopenia, bilatera l hips H-TSH Reviewed date:02/09/2024 02:00:33 PM Interpretation: [...] Notes/Report: T4F 1.45 0.78-2.19 ng/dl H-TSH Reviewed date:11/14/2024 12:55:46 PM Interpretation: Performing Lab: Notes/Report: H-CBC Reviewed date:11/14/2024 12:55:58 PM Interpretation: Performing Lab: Notes/Report: H-Microalbumine/Creatinine Reviewed date:11/14/2024 12:56:10 PM Interpretation: Performing Lab: Notes/Report: H-Lipid Panel Reviewed date:11/14/2024 12:56:23 PM Interpretation: Performing Lab: Notes/Report: H-CMP Reviewed date:11/14/2024 12:56:36 PM Interpretation: Performing Lab: Notes/Report: H-T4 (Thyroxine) Reviewed date:11/14/2024 12:56:49 PM Interpretation: Performing Lab: Notes/Report: Medications Medication SIG (Take, Route, Frequency, Duration) [...] Tdap-Adacel (over 7yrs) IM Intramuscular 01/31/2012 Administered Prevnar (PCV20) IM Intramuscular 11/15/2024 Administered Fluzone High Dose (65yr and older) IM Intramuscular 11/15/2024 Administered COVID 19 Moderna Unknown 02/24/2020 Administered COVID 19 Moderna Unknown 03/25/2020 Administered COVID 19 Moderna Unknown 12/24/2020 Administered Problems Problem Type SNOMED Code ICD Code Onset Dates Problem Status W/U Status Risk Notes Problem Essential hypertension (05565237) Essential hypertension (I10) Active confirmed Problem Solitary nodule of lung (032489419) Lung nodule (R91.1) Active confirmed Problem Hypertriglyceridemia (302444369) Hypertriglyceridemia (E78.1) Active confirmed Problem Osteopenia (471065322) Osteopenia (M85.80) Active confirmed Problem Screening for osteoporosis (323601961) Screening for osteoporosis (Z13.820) Active confirmed Problem Sciatica (39405628) Lumbago with sciatica, right side (M54.41) Active confirmed Problem Sciatica (61399331) Lumbago with sciatica, left side (M54.42) Active confirmed Problem Obese class II (603785167870230) BMI 35.0-35.9,adult (Z68.35) Active confirmed Problem Acquired hypothyroidism (999756906) Acquired hypothyroidism (E03.9) Active confirmed Problem Hyperlipidemia (23283831) Hyperlipidemia, unspecified hyperlipidemia (E78.5) Active confirmed Problem Bilateral carpal tunnel syndrome (62090304495154635) Bilateral carpal tunnel syndrome (G56.03) Active confirmed Problem Tonsil asymmetry (536244620) 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) Active confirmed Problem Paresthesia of finge r (810357209) Paresthesia of finger (R20.2) Active confirmed Problem Personal history of primary malignant neoplasm of breast (962234837) History of malignant neoplasm of right breast (Z85.3) Active confirmed Vital Signs Heart Rate 80 /min 11/15/2024 Blood pressure diastolic 80 mm Hg 11/15/2024 Height 60.50 in 11/15/2024 Blood pressure systolic 130 mm Hg 11/15/2024 Weight 183.8 lbs 11/15/2024 BMI 35.3 kg/m2 11/15/2024 Encounters Encounter Location Date Provider Diagnosis [facility] [address] [place], [place] [id number] 05/17/2024 Sonal Crowdy Hyperlipidemia, unsp ecified hyperlipidemia E78.5 and Acquired hypothyroidism E03.9 [facility] [address] [place], [place] [id number] 11/15/2024 Sonal Chiu Adult general medica l examination Z00.00 ; Acquired hypothyroidism E03.9 ; Hyperlipidemia, unspecified hyperlipidemia E78.5 ; Hypertriglyceridemia E78.1 ; Pulmonary nodules R91.8 ; Encounter for immunization Z23 ; Essential hypertension I10 ; History of malignant neoplasm of right breast Z85.3 ; Osteopenia M85.80 and BMI 35.0-35.9,adult Z68.35 [facility] [address] [place], [place] [id number] 12/13/2023 Sonal Chiu Bilateral carpal roland marko syndrome G56.03 [facility] [address] [place], [place] [id number] 01/30/2024 Sonal Chiu Hyperlipidemia, unsp ecified hyperlipidemia E78.5 and Acquired hypothyroidism E03.9 [facility] [address] [place], [place] [id number] 02/09/2024 Sonal Chiu [facility] [address] [place], [place] [id number] 05/20/2024 Sonal Chiu [facility] [address] [place], [place] [id number] 06/21/2024 Sonal Aram [facility] [address] [place], [place] [id number] 07/17/2024 Sonal Chiu [facility] [address] [place], [place] [id number] 08/14/2024 Iron Mcpherson [facility] [address] [place], [place] [id number] 09/19/2024 Sonal Chiu Essential hypertensi on I10 ; Acquired hypothyroidism E03.9 and Hyperlipidemia, unspecified hyperlipidemia E78.5 [facility] [address] [place], [place] [id number] 11/15/2024 Sonal Chiu Assessments Encounter Date Diagnosis [...] assessment, Depression screening and Bladder control screening. 01/30/2024 Hyperlipidemia, unspecified hyperlipidemia (ICD-10 - E78.5) 11/15/2024 Hyperlipidemia, unspecified hyperlipidemia (ICD-10 - E78.5) 09/19/2024 Acquired hypothyroid ism (ICD-10 - E03.9) 09/19/2024 Hyperlipidemia, unspecified hyperlipidemia (ICD-10 - E78.5) 11/15/2024 Hypertriglyceridemia (ICD-10 - E78.1) Patient has not been taking fenofibrate. Will start on this. 01/30/2024 Acquired hypothyroid ism (ICD-10 - E03.9) 11/15/2024 Pulmonary nodules (ICD-10 - R91.8) 11/15/2024 Encounter for immunization (ICD-10 - Z23) 11/15/2024 Essential hypertensi on (ICD-10 - I10) 11/15/2024 History of malignant neoplasm of right breast (ICD-10 - Z85.3) 11/15/2024 Osteopenia (ICD-10 - M85.80) 11/15/2024 BMI 35.0-35.9,adult (ICD-10 - Z68.35) Plan Of Treatment Pending Test Test Name Order Date CT Scan : Chest with IV contrast 025 H-CMP 03/17/2021 Insurance Providers Payer Name Payer Address Payer Phone Subscriber Number Group Number Insured Name Patient Relationship to Insured Coverage Start Date Coverage End Date [employer] (MEDICAR E) [address] [address] [place] [address] [id number] Erika BURGOS Self - patient is the [...]
--- OUTSIDE RECORDS SUMMARY | 2024-11-25 09:26 | XMS_ITS | Clinical Summary ---
Author Organization [facility] Address [address] [place] [address] Care Team Providers Care Loan Originator Name Role Phone Abraham Avilez MD Primary Care Provider [phone] Social History Tobacco Use Types Packs/Day Years [...] to Health Maintenance Insurance R Care Teams Loan Originator Relationship Specialty Start Date End Date Abraham Avilez MD [address] [facility] [address] [place] [address] PCP - General Family Medicine 03/14/18
--- NOTE | 2024-11-25 09:30 | CA_ITS ---
APPROVED REPORT EXAM: Comprehensive 2D, Doppler, and color-flow Echocardiogram Wood Finisher Apprentice: Meli Donahue CRT Ht: 5 ft 1 in Wt: 182lbs BSA: 1.81 BP: 151/88 mmHg Indications: Shortness of Breath, Palpitations, Hyperlipidemia, Hypertension/HDD, HX breast Ca chemo, radiation, thyroidectomy 2D Dimensions Left Atrium 3.43 cm LVEF (Alvarez's) 57.00 % LVOT 1.99 cm (M/F) 1.5-2.5 LV Volume 85.40 mL LA Volume 20.30 mL LA Volume Index 11.20 mL/m2 (M/F) 16-34 EF AP4 63.60 % EF AP2 48.8 % EF BP 57.0 % GL Strain -15.5 % M-Mode Dimensions RVDd 2.86 cm (0.9-2.6) LVDd 4.04 cm (3.5-5.7) Ao Diam 3.44 cm (2.0-3.7) LVDs 2.29 cm (3.5-5.7) IVSd 1.36 cm (0.6-1.1) PWd 0.57 cm (0.6-1.1) EF (Teich) 75.00% FS 43.30% EDV (Teich) 71.70 mL ESV (Teich) 17.90 mL LV Diastology E Decel Time 156 (160-240 msec) E/A Ratio 0.62 MED E' 10.5 (>= 7 cm/sec) MED A' 13.10 cm/s E'/MED E' Ratio 4.93 (<= 14) LAT E' 4.9 (>= 10 cm/sec) LAT A' 10.20 cm/s E/LAT E' Ratio 10.57 (<= 14) Aortic Valve AoV Peak Johan. 107.0 (50-130 cm/s) AO Peak GR. 4.60 mmHg Mitral Valve MV E Max Johan. 52.0 (40-130 cm/s) MV A Velocity 84.0 (40-130 cm/s) E/A Ratio 0.62 MV Decel. Time 156 (160-240 ms) Tricuspid Valve TR P. Velocity 477.00 cm/s RAP Estimate 10.00 mmHg RVSP 101.10 mmHg Left Ventricle The left ventricle is normal size. Left ventricular systolic function is normal. The left ventricular ejection fraction is within the normal range. There is increased left ventricular wall thickness. There is normal LV segmental wall motion. Transmitral Doppler flow pattern suggests impaired LV relaxation. LVEF is 55% Right Ventricle The right ventricle is normal size. The right ventricular systolic function is normal. Atria The left atrium size is normal. The right atrium size is normal. There is no color Doppler evidence of interatrial shunt. Aortic Valve The aortic valve is mildly thickened. There is no hemodynamically significant aortic valvular stenosis. No aortic regurgitation is present. Mitral Valve The mitral valve is normal in structure. No evidence of mitral valve stenosis. Trace mitral regurgitation is present. Tricuspid Valve The tricuspid valve leaflets are thin and pliable. Mild tricuspid regurgitation. RVSP is 25-30 mmHg. Pulmonic Valve The pulmonary valve is grossly normal in structure. Mild pulmonic valve regurgitation is present. Great Vessels The aortic root is normal in size. IVC is normal in size and collapses >50% with inspiration. Pericardium There is no pericardial effusion. Other Information Study Quality: Fair Conclusion Normal biventricular systolic function. Mild TR, mild PI. Electronically signed by : Siena Mejia MD 11/26/2024 11:53:03
== END 2024-11-25 23:59 | disposition home or self-care (01) ==
PROVIDERS: PCP Physician Assistant; Visit Provider Nurse Practitioner
DX: I08.8 Other rheumatic multiple valve diseases (principal); E78.5 Hyperlipidemia, unspecified; I10 Essential (primary) hypertension; Z85.3 Personal history of malignant neoplasm of breast; E89.0 Postprocedural hypothyroidism
CPT/HCPCS: 93306

== ENCOUNTER 2025-02-11 07:38 | Outpatient (CLI) | payer MEDICARE, SELFPAY ==
--- OUTSIDE RECORDS SUMMARY | 2023-11-08 04:00 | XMS_ITS ---
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 Name Role Phone Iron Mcpherson Primary Care Provider [phone] Sonal Chiu [phone] Allergies Allergen (clinical drug ingredient) Drug/Non Drug Allergy documented on EMR Reaction Allergy Type Onset Date Status erythromycin Erythromycin Unknown Drug Allergy A ctive Neosporin Unknown Drug Allergy Active clindamycin Clindamycin hives Drug Allergy Act ira Substance with penicillin structure and antibacterial mechanism of action (substance) Penicillins Unknown Drug Allergy Active Substance with sulfonamide structure and antibacterial mechanism of action (substance) Sulfa Antibiotics Unknown Drug Allergy Active Results Component Value Reference Range Notes H-TSH Reviewed date:11/15/2023 08:45:45 AM Interpretation:0.19 Performing Lab: Notes/Report: TSH 0.19 0.465-4.68 uIU/mL H-CBC Reviewed date:11/15/2023 08:45:45 AM Interpretation:mch 31.5 Performing Lab: Notes/Report: WBC 4.8 4.8-10.8 K/mm3 RBC 4.82 4.20-5.40 M/mm3 HGB 15.2 12.2-16.2 g/dL HCT 47.0 37.0-47.0 % MCV 97.4 81-99 fl MCH 31.5 27.0-31.2 pg MCHC 32.4 31.8-35.4 g/dL RDW 13.4 11.5-17.5 % PLT 286 142-424 K/mm3 MPV 7.7 7.4-10.4 fl NE% 38.5 37.0-80.0 % LY% 47.1 10-50 % MO% 7.6 1.7-9.3 % EO% 5.6 0.1-12.0 % BA% 1.2 0.1-2.0 % NE# 1.9 1.8-7.8 K/mm3 LY# 2.3 0.7-4.5 K/mm3 MO# 0.4 0.1-1.0 K/mm3 EO# 0.3 0.0-0.4 K/mm3 BA# 0.1 0-0.2 K/mm3 H-Lipid Panel Reviewed date:11/15/2023 08:45:45 AM Interpretation:trigs 493, chol 245, dldl 77.51, hdl 39, chol/hdl 6.3 Performing Lab: Notes/Report: Patient Fasting? Y TRIG 493 30-150 mg/dl If Triglyceride value exceeds 400mg/dL, the VLDL value has no clinical significance. The calculations are accurate for specimens in which the TGL concentration is no more than 400mg/dL and which are not from persons who have Type III Hyperlipoproteinemia. CHOL 245 140-200 mg/dl DLDL 77.51 100-129 mg/dL HDL 39 40-60 mg/dl CHLHDL 6.3 1-3.5 H-CMP Reviewed date:11/15/2023 08:45:45 AM Interpretation:bun 18 Performing Lab: Notes/Report: NA 139 136-145 mmol/L K 4.6 3.5-5.1 mmoL/L CL 107 98-107 mmol/L CO2 27 22.0-30.0 mmol/L GAP 9.6 5-15 mEq/L BUN 18 7-17 mg/dl CREATT 0.60 0.52-1.04 mg/dl GFRAA 121 >60 ML/MIN EGFR 100 >60 ml/min GLU 87 74-100 mg/dl CA 9.6 8.4-10.2 mg/dl BILIT 0.7 0.2-1.3 mg/dl AST 36 14-36 U/L ALT 33 12-78 U/L TP 7.2 6.3-8.2 g/dl ALB 4.2 3.5-5.0 g/dl GLOB 3.0 1.3-3.2 g/dL AGRATIO 1.4 1.1-1.8 ALP 113 38-126 U/L H-VITAMIN B12 Reviewed date:11/15/2023 08:45:45 AM Interpretation:Normal Performing Lab: Notes/Report: VITB12 879 239-931 pg/mL H-T4 free Reviewed date:11/15/2023 08:45:45 AM Interpretation:Normal Performing Lab: Notes/Report: T4F 1.37 0.78-2.19 ng/dl Nerve Conduction Study Reviewed date:12/13/2023 03:31:01 PM Interpretation:bilateral CTS Performing Lab: Notes/Report: bilateral CTS REASON FOR VISIT checkup, Needs labs, bone density screening, & flu vaccine Medications Medication SIG (Take, Route, Frequency, Duration) Notes Start Date End Date Status Rosuvastatin Calcium 5 MG 1 tab(s) orall y once a day; Duration: 90 days Active Synthroid 88 MCG 1 tablet in the morn ing on an empty stomach Orally Once a day; Duration: 90 days 08/03/2022 Active Vascepa 1 GM TAKE 2 CAPSULES TWIC E DAILY; Duration: 90 days Active Losartan Potassium 25 MG 1 tab(s) orally once a day; Duration: 30 day(s) Active Metoprolol Tartrate 25 MG TAKE 1 TABLET ONCE DAILY; Duration: 90 Active CoQ-10 100 MG 1 cap(s) orally once a day; Duration: 30 day(s) Active Vitamin E 1000 UNIT 1 cap(s) orally BID Active Multivitamin - 1 tablet Orally Once a day; Duration: 30 day(s) Active RANITIDINE 300 MG 1 TAB(S) ORALLY ONCE A DAY (AT BEDTIME) PRN 02/04/2016 Active Aspirin 81 MG 1 tablet Orally Once a day; Duration: 30 day(s) Active Triamcinolone Acetonide 0.1 % 1 application Externally Three times a day 01/25/2023 Active Problems Problem Type SNOMED Code ICD Code Onset Dates Problem Status W/U Status Risk Notes Problem Paresthesia of finger (339609916) Paresthesia of finger (R20.2) Active confirmed Vital Signs Blood pressure systolic 142 mm Hg 11/08/19 24 Blood pressure diastolic 90 mm Hg 024 Heart Rate 72 /min 11/08/2023 Height 60.50 in 11/08/2023 Weight 182.8 lbs 11/08/2023 BMI 35.11 kg/m2 11/08/2023 Encounters Encounter Location Date Provider Diagnosis [facility] [address] [place] [id number] 11/08/2023 Sonal Crowoliverio Acquired hypothyroid ism E03.9 ; Hypertriglyceridemia E78.1 ; Hyperlipidemia, unspecified hyperlipidemia E78.5 ; Essential hypertension I10 ; Sebaceous cyst L72.3 and Paresthesia of finger R20.2 Assessments Encounter Date Diagnosis (ICD Code) Assessment Notes Treatment Notes Treatment Clinical Notes Section Notes 11/08/2023 Acquired hypothyroid ism (ICD-10 - E03.9) 11/08/2023 Hypertriglyceridemia (ICD-10 - E78.1) 11/08/2023 Hyperlipidemia, unspecified hyperlipidemia (ICD-10 - E78.5) 11/08/2023 Essential hypertensi on (ICD-10 - I10) Will monitor BP at home and call back if it remains elevated. 11/08/2023 Sebaceous cyst (ICD- 10 - L72.3) 11/08/2023 Paresthesia of finge r (ICD-10 - R20.2) Plan Of Treatment Treatment Notes Assessment Notes Essential hypertension Will monitor BP a t home and call back if it remains elevated. Next Appt Details Follow Up: via phone to repo rt test results, Reason: Progress Notes * Erika BURGOS LDOB: [birth year] (69 yo F)Acc No.[id number]:11/08/2023 Progress Notes Patient: Erika CASTLE Provider: NICOLÁS Gunn :1955 A ge:68 Y S ex:Female Date:11/08/2023 Address:[place], [id number] Pcp:Iron Mcpherson Subjective: * Chief Complaints: * 1 . Checkup. 2. Needs labs, bone density screening, & flu vaccine. * HPI: C ardiology: The patient is here today for a check up. Pt states she is doing good except for some numbness in her finger tips. Pt states the right is worse. Pt states she is fasting. Denies : Chest Pain. D enies : Short of Breath. D enies : Dizziness. D enies : Palpitations. * ROS: D ERMATOLOGY: no R miguel angel. n o H autumn. G ASTROENTEROLOGY: no N ausea. n o V omiting. n o D iarrhea.? U ROLOGY: no D ifficulty urinating. n o B lood in urine. * Medical History: H ypothyroidism-post surgical goiter, Hypertension, Hypertriglyceridemia, Ovarian cyst, Zostavax vaccine 07/25/11, Breast cancer, Dx: 2009, CT chest/abd/pelvis 2015 for cancer surveilance. * Surgical History: T hyroidectomy Total 07/2004, Tubal Ligation , RT Mastectomy 02/2009, Uterine Polyp Removal 08/20/2012. * Family History: F ather: , cardiomyopathy, dementis. M other: alive 84 yrs. P aternal Grand Father: heart disease. P aternal Grand Mother: heart disease. M aternal Grand Father: Stroke, lung disease. M aternal Grand Mother: Stroke. 2 brother(s) , 1 sister(s) . 3 daughter(s) - healthy. . * Social History: C URRENT TOBACCO USE S moking Status: Patient does NOT smoke. C affeine: no. Marital Status: . Past smoking status: no, Smoking status: Does not smoke. Alcohol: no, Type: , Frequency: ,Years: , Determination:. * Medications: T juhi Triamcinolone Acetonide 0.1 % Cream 1 application Externally Three times a day , Taking Aspirin 81 MG Tablet Delayed Release 1 tablet Orally Once a day , Taking Multivitamin - Tablet 1 tablet Orally Once a day , Taking Vitamin E 1000 UNIT Capsule 1 cap(s) orally BID , Taking CoQ-10 100 MG Capsule 1 cap(s) orally once a day , Taking RANITIDINE 300 MG TABLET 1 TAB(S) ORALLY ONCE A DAY (AT BEDTIME) PRN , Taking Metoprolol Tartrate 25 MG Tablet TAKE 1 TABLET ONCE DAILY , Taking Losartan Potassium 25 MG Tablet 1 tab(s) orally once a day , Taking Vascepa 1 GM Capsule TAKE 2 CAPSULES TWICE DAILY , Taking Synthroid 88 MCG Tablet 1 tablet in the morning on an empty stomach Orally Once a day , Taking Rosuvastatin Calcium 5 MG Tablet 1 tab(s) orally once a day , Discontinued Medrol 4 MG Tablet Therapy Pack as directed orally daily , Discontinued Zithromax Z-Curly 250 MG Tablet as directed Orally once daily , Discontinued Hair Skin & Nails Gummies 1250-7.5-7.5 MCG-MG-UNT Tablet Chewable 1 tab(s) chewed once a day , Medication List reviewed and reconciled with the patient * Allergies: P enicillins, Sulfa Antibiotics, Erythromycin, Neosporin, Clindamycin: hives - Allergy. Objective: * Vitals: W t:182.8, Temp:97.6, BP:142/90, HR:72, Nurse:JONI, Ht: 60.50, BMI:35.11. * Examination: G eneral Examination: General Appearance: N AD. H EENT: u nremarkable.?Oral cavity: n o lesions, mucosa moist and WNL, no erythema. N marco antonio: s upple, no lymphadenopathy. C hest: n ormal shape and expansion. H eart: R SR. L ungs: c lear to auscultation. A bdomen: bowel sounds present, soft and nontender, no organomegaly or masses, no guarding or rigidity. N eurologic Exam: I ntact, gait normal, positive phalen sign of bilateral wrists. S kin: n ormal, no rash, small cyst on the left mid back, no erythema or drainage. P eripheral pulses: n ormal (2+) bilaterally. E xtremities: n o leg edema. Assessment: * Assessment: 1. A cquired hypothyroidism - E03.9 (Primary) 2 . H ypertriglyceridemia - E78.1 3 . H yperlipidemia, unspecified hyperlipidemia - E78.5 4 .?Essential hypertension - I10 5 . S ebaceous cyst - L72.3 S pecify :left side of back 6 . P aresthesia of finger - R20.2 S pecify :all fingers both hands Plan: * Treatment: Value Reference Range T SH 0.19 L 0.465-4.68 - uIU/mL * Sonal Chiu 11/15/2023 8: 45:24 AM > see TE ?LAB: H-T4 free (Collection Date & Time - 11/08/2023 10:10 AM)?Normal* Value Reference Range T 4F 1.37 0.78-2.19 - ng/dl * Sonal Chiu 11/15/2023 8: 45:24 AM > see TE 2.?Hypertriglyceridemia?LAB: H-Lipid Panel (Collection Date & Time - 11/08/2023 10:10 AM)?trigs 493, chol 245, dldl 77.51, hdl 39, chol/hdl 6.3* Value Reference Range T RIG 493 H 30-150 - mg/dl * C HOL 245 H 140-200 - mg/dl * D LDL 77.51 L 100-129 - mg/dL * H DL 39 L 40-60 - mg/dl * C HLHDL 6.3 H 1-3.5 - * Sonal Chiu 11/15/2023 8: 45:24 AM > see TE 3.?Essential hypertension?LAB: H-CBC (Collection Date & Time - 11/08/2023 10:10 AM)?mch 31.5* Value Reference Range W BC 4.8 4.8-10.8 - K/mm3 * R BC 4.82 4.20-5.40 - M/mm3 * H GB 15.2 12.2-16.2 - g/dL * H CT 47.0 37.0-47.0 - % * M CV 97.4 81-99 - fl * M CH 31.5 H 27.0-31.2 - pg * M CHC 32.4 31.8-35.4 - g/dL * R DW 13.4 11.5-17.5 - % * P LT 286 142-424 - K/mm3 * M PV 7.7 7.4-10.4 - fl * N E% 38.5 37.0-80.0 - % * L Y% 47.1 10-50 - % * M O% 7.6 1.7-9.3 - % * E O% 5.6 0.1-12.0 - % * B A% 1.2 0.1-2.0 - % * N E# 1.9 1.8-7.8 - K/mm3 * L Y# 2.3 0.7-4.5 - K/mm3 * M O# 0.4 0.1-1.0 - K/mm3 * E O# 0.3 0.0-0.4 - K/mm3 * B A# 0.1 0-0.2 - K/mm3 * Sonal Chiu 11/15/2023 8: 45:24 AM > see TE ?LAB: H-CMP (Collection Date & Time - 11/08/2023 10:10 AM)?bun 18* Value Reference Range N A 139 136-145 - mmol/L * K 4.6 3.5-5.1 - mmoL/L * C L 107 98-107 - mmol/L * C O2 27 22.0-30.0 - mmol/L * G AP 9.6 5-15 - mEq/L * B UN 18 H 7-17 - mg/dl * C REATT 0.60 0.52-1.04 - mg/dl * G FRAA 121 >60 - ML/MIN * E GFR 100 >60 - ml/min * G JACK 87 74-100 - mg/dl * C A 9.6 8.4-10.2 - mg/dl * B ILIT 0.7 0.2-1.3 - mg/dl * A ST 36 14-36 - U/L * A LT 33 12-78 - U/L * T P 7.2 6.3-8.2 - g/dl * A LB 4.2 3.5-5.0 - g/dl * G LOB 3.0 1.3-3.2 - g/dL * A GRATIO 1.4 1.1-1.8 - * A LP 113 38-126 - U/L * Sonal Chiu 11/15/2023 8: 45:24 AM > see TE Notes: Will monitor BP at home and call back if it remains elevated.?? 4.?Paresthesia of finger?LAB: H-VITAMIN B12 (Collection Date & Time - 11/08/2023 10:10 AM)?Normal* Value Reference Range V ITB12 879 239-931 - pg/mL * Sonal Chiu 11/15/2023 8: 45:24 AM > see TE ?Imaging: Nerve Conduction Study (Performed Date - 12/06/2023)?bilateral CTS * Sonal Chiu 11/08/2023 12 :07:41 PM >Symone Garber 11/08/2023 2:22:48 PM > order faxed to Sonal Phipps 12/13/2023 3:30:56 PM > see TE * Follow Up: v ia phone to report test results * Images: Billing Information: * Visit Code: 29590 Office Visit, Est Pt., Level 4. * Procedure Codes: * Electronic signature of NICOLÁS Gatica on 02/11/2025 at 07:42 AM EST Sign off status: Pending * Provider: NICOLÁS Gunn Date: 0 11/08/2023 Generated for Printi ng/Faxing/eTransmitting on: 1 04/14/2024 07:42 AM EST History and Physical Notes * HPI (History of Present Illness) Category Sub-Category Detail Notes Category Not es Cardiology Short of Breath Chest Pain Palpitations Dizziness Examination Category Sub-Category Detail Notes Category Not es General Examination HEENT: unremarkable Heart: RSR Lungs: clear to auscultatio n Abdomen: bowel sounds present , soft and nontender, no organomegaly or masses, no guarding or rigidity Extremities: no leg edema General Appearance: NAD Skin: normal, no rash, sma ll cyst on the left mid back, no erythema or drainage Neurologic Exam: Intact, gait normal, positive phalen sign of bilateral wrists Neck: supple, no lymphaden opathy Oral cavity: no lesions, mucosa m oist and WNL, no erythema Peripheral pulses: normal (2+) bilatera lly Chest: normal shape and exp ansion
--- OUTSIDE RECORDS SUMMARY | 2024-05-17 09:30 | XMS_ITS ---
[facility] [address] [place] [id number] Care Team Providers Care Barrel Rifler Name Role Phone Iron Mcpherson Primary Care Provider Sonal Chiu [phone] Allergies Allergen (clinical drug ingredient) Drug/Non Drug [...] Component Value Reference Range Notes H-TSH Reviewed date:05/20/2024 04:41:00 PM Interpretation:Normal Performing Lab: Notes/Report: TSH 1.29 0.465-4.68 uIU/mL H-Lipid Panel Reviewed date:05/20/2024 04:41:00 PM Interpretation:Trig 313, Chol 227, DLDL 86.28, VLDL 63, HDL 39, Chl/HDL 5.8 Performing Lab: Notes/Report: Patient Fasting? Y TRIG 313 30-150 mg/dl CHOL 227 140-200 mg/dl DLDL 86.28 100-129 mg/dL VLDL 63 0-40 mg/dL HDL 39 40-60 mg/dl CHLHDL 5.8 1-3.5 H-CMP Reviewed date:05/20/2024 04:41:00 PM Interpretation:Glu 103 Performing Lab: Notes/Report: NA 139 136-145 mmol/L K 4.3 3.5-5.1 mmoL/L CL 103 98-107 mmol/L CO2 27 22.0-30.0 mmol/L GAP 13.3 5-15 mEq/L BUN 14 7-17 mg/dl CREATT 0.60 0.52-1.04 mg/dl GFRAA 121 >60 ML/MIN EGFR 100 >60 ml/min GLU 103 74-100 mg/dl CA 9.5 8.4-10.2 mg/dl BILIT 0.7 0.2-1.3 mg/dl AST 34 14-36 U/L ALT 34 12-78 U/L TP 7.0 6.3-8.2 g/dl ALB 4.2 3.5-5.0 g/dl GLOB 2.8 1.3-3.2 g/dL AGRATIO 1.5 1.1-1.8 ALP 103 38-126 U/L H-T4 free Reviewed date:05/20/2024 04:41:00 PM Interpretation:Normal Performing Lab: Notes/Report: T4F 1.51 0.78-2.19 ng/dl REASON FOR VISIT 3 month ckup Medications Medication SIG (Take, Route, Frequency, Duration) Notes Start Date End Date Status Triamcinolone Acetonide 0.1 % 1 application Externally Three times a day 01/25/2023 Active Aspirin 81 MG 1 tablet Orally Once a day; Duration: 30 day(s) Active Multivitamin - 1 tablet Orally Once a day; Duration: 30 day(s) Active Vitamin E 1000 UNIT 1 cap(s) orally BID Active CoQ-10 100 MG 1 cap(s) orally once a day; Duration: 30 day(s) Active Rosuvastatin Calcium 5 mg TAKE ONE TABLE T BY MOUTH EVERY DAY; Duration: 90 Active Synthroid 75 MCG 1 tablet in the morn ing on an empty stomach Orally Once a day; Duration: 90 days 02/09/2024 Active Fenofibrate 160 MG 1 tablet Orally Once a day; Duration: 90 days 02/09/2024 Active Vascepa 1 GM TAKE 2 CAPSULES TWIC E DAILY; Duration: 90 days Active Losartan Potassium 25 MG 1 tab(s) orally once a day; Duration: 30 day(s) Active Metoprolol Tartrate 25 MG TAKE 1 TABLET ONCE DAILY; Duration: 90 Active RANITIDINE 300 MG 1 TAB(S) ORALLY ONCE A DAY (AT BEDTIME) PRN 02/04/2016 Active Vital Signs Blood pressure systolic 118 mm Hg 05/18/19 25 Blood pressure diastolic 76 mm Hg 025 Heart Rate 56 /min 05/17/2024 Height 60.50 in 05/17/2024 Weight 188.2 lbs 05/17/2024 BMI 36.15 kg/m2 05/17/2024 Encounters Encounter Location Date Provider Diagnosis [facility] [address] [facility] [address] [place], [place] [id number] 05/17/2024 Sonal Chiu Hyperlipidemia, unspecified hyperlipidemia E78.5 and Acquired hypothyroidism E03.9 Assessments Encounter Date Diagnosis (ICD Code) Assessment Notes Treatment Notes Treatment Clinical Notes Section Notes 05/17/2024 Hyperlipidemia, unspecified hyperlipidemia (ICD-10 - E78.5) 05/17/2024 Acquired hypothyroidism (ICD-10 - E03.9) Plan Of Treatment Next Appt Details Follow Up: via phone to repo rt test results, Reason: Progress Notes * Erika BURGOS LDOB: 8 (69 yo F)Acc No.[id number]:05/17/2024 Progress Notes Patient: Erika CASTLE Provider: NICOLÁS Gunn :1955 A ge:68 Y S ex:Female Date:05/17/2024 [id number] Pcp:Iron Mcpherson Subjective: * Chief Complaints: * 1 . 3 month ckup. * HPI: H PI: 68 year old female presents with c/o Patient is here today for?Pt is here today for a 3 month check up. Pt sts she is doing well and has no concerns at this time. * ROS: D ERMATOLOGY: no R miguel angel. n o H autumn. G ASTROENTEROLOGY: no N ausea. n o V omiting. n o D iarrhea.? U ROLOGY: no D ifficulty urinating. n o B lood in urine. * Medical History: H ypothyroidism-post surgical goiter, Hypertension, Hypertriglyceridemia, Ovarian cyst, Zostavax vaccine 07/25/11, Breast cancer, Dx: 2009, CT chest/abd/pelvis 2016 for cancer surveilance. * Surgical History: T hyroidectomy Total 07/2004, Tubal Ligation , RT Mastectomy 02/2009, Uterine Polyp Removal 08/20/2012. * Family History: F ather: , cardiomyopathy, dementis. M other: alive 85 yrs. P aternal Grand Father: heart disease. [...] TAKE 2 CAPSULES TWICE DAILY , Taking Rosuvastatin Calcium 5 mg Tablet TAKE ONE TABLET BY MOUTH EVERY DAY , Taking Synthroid 75 MCG Tablet 1 tablet in the morning on an empty stomach Orally Once a day , Taking Fenofibrate 160 MG Tablet 1 tablet Orally Once a day , Medication List reviewed and reconciled with the patient * Allergies: P enicillins, Sulfa Antibiotics, Erythromycin, Neosporin, Clindamycin: hives - Allergy. Objective: * Vitals: W t: 188.2, Temp: 98.4, BP: 118/76, HR: 56, Nurse: cami, Ht: 60.50, BMI:36.15. * Examination: G eneral Examination: General Appearance: N AD. H EENT: u nremarkable.?Oral cavity: n o lesions, mucosa moist and WNL, no erythema. N marco antonio: s upple, no lymphadenopathy. C hest: n ormal shape and expansion. H eart: R SR. L ungs: c lear to auscultation. A bdomen: b owel sounds present, soft and nontender, no organomegaly or masses, no guarding or rigidity. N eurologic Exam: I ntact, gait normal. S kin: n ormal, no rash. P eripheral pulses: n ormal (2+) bilaterally. E xtremities: n o leg edema. Assessment: * Assessment: 1. H yperlipidemia, unspecified hyperlipidemia - E78.5 (Primary) 2 . A cquired hypothyroidism - E03.9 Plan: * Treatment: Value Reference Range T RIG 313 H 30-150 - mg/dl * C HOL 227 H 140-200 - mg/dl * D LDL 86.28 L 100-129 - mg/dL * V LDL 63 H 0-40 - mg/dL * H DL 39 L 40-60 - mg/dl * C HLHDL 5.8 H 1-3.5 - * Dia Méndez 05/20/2024 04: 40:47 PM > see phone encounter ?LAB: H-CMP (Collection Date & Time - 05/18/2024 08:11 AM)?Glu 103* Value Reference Range N A 139 136-145 - mmol/L * K 4.3 3.5-5.1 - mmoL/L * C L 103 98-107 - mmol/L * C O2 27 22.0-30.0 - mmol/L * G AP 13.3 5-15 - mEq/L * B UN 14 7-17 - mg/dl * C REATT 0.60 0.52-1.04 - mg/dl * G FRAA 121 >60 - ML/MIN * E GFR 100 >60 - ml/min * G JACK 103 H 74-100 - mg/dl * C A 9.5 8.4-10.2 - mg/dl * B ILIT 0.7 0.2-1.3 - mg/dl * A ST 34 14-36 - U/L * A LT 34 12-78 - U/L * T P 7.0 6.3-8.2 - g/dl * A LB 4.2 3.5-5.0 - g/dl * G LOB 2.8 1.3-3.2 - g/dL * A GRATIO 1.5 1.1-1.8 - * A LP 103 38-126 - U/L * Dia Méndez 05/20/2024 04: 40:47 PM > see phone encounter 2.?Acquired hypothyroidism?LAB: H-TSH (Collection Date & Time - 05/18/2024 08:11 AM)?Normal* Value Reference Range T SH 1.29 0.465-4.68 - uIU/mL * DevDia 05/20/2024 04: 40:47 PM > see phone encounter ?LAB: H-T4 free (Collection Date & Time - 05/18/2024 08:11 AM)?Normal* Value Reference Range T 4F 1.51 0.78-2.19 - ng/dl * Dev Dia 05/20/2024 04: 40:47 PM > see phone encounter * Procedure Codes: G 2211 Complex e/m visit add on, 3074F SYST BP LT 130 MM HG, 3078F DIAST BP < 80 MM HG * Follow Up: v ia phone to report test results * Images: Billing Information: * Visit Code: 27653 Office Visit, Est Pt., Level 4. * Procedure Codes: G2211 Complex e/m visit add on. 3074F SYST BP LT 130 MM HG. 3078F DIAST BP < 80 MM HG. * Electronic signature of NICOLÁS Gatica on 02/11/2025 at 07:41 AM EST Sign off status: Pending * Provider: NICOLÁS Gunn Date: 0 05/17/2024 Generated for Koki murphy/Conrad/Elenaitting on: 1 04/14/2024 07:41 AM EST History and Physical Notes * HPI (History of Present Illness) Category Sub-Category Detail Notes Category Not es HPI Patient is here today for Pt is here today for a 3 month check up. Pt sts she is doing well and has no concerns at this time Examination Category Sub-Category Detail Notes Category Not es General Examination HEENT: unremarkable Heart: RSR Lungs: clear to auscultatio n Abdomen: bowel sounds present , soft and nontender, no organomegaly or masses, no guarding or rigidity Extremities: no leg edema General Appearance: NAD Skin: normal, no rash Neurologic Exam: Intact, gait normal Neck: supple, no lymphaden opathy Oral cavity: no lesions, mucosa m oist and WNL, no erythema Peripheral pulses: normal (2+) bilatera lly Chest: normal shape and exp ansion
--- OUTSIDE RECORDS SUMMARY | 2024-11-15 06:30 | XMS_ITS ---
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 Name Role Phone Iron Mcpherson Primary Care Provider Sonal Chiu Unavailable [phone] Allergies Allergen (clinical drug ingredient) Drug/Non Drug [...] Active Results Component Value Reference Range Notes CT Scan : Chest with IV cont rast Reviewed date:11/27/2024 11:48:04 AM Interpretation:multiple small pulmonary nodules bilaterally, recommend annual f/u Performing Lab: Notes/Report: multiple small pulmonary nodules bilaterally, recommend annual f/u REASON FOR VISIT check up and Annual Wellness Visit Medications Medication SIG (Take, Route, Frequency, Duration) Notes Start Date End Date Status Levothyroxine Sodium 100 MCG 1 tablet in the morning on an empty stomach Orally Once a day 11/15/2024 Active Fenofibrate 160 MG 1 tablet Orally Once a day 02/09/2024 Active Triamcinolone Acetonide 0.1 % 1 application Externally Three times a day 01/25/2023 Not-Taking Rosuvastatin Calcium 5 mg TAKE ONE TABLE T BY MOUTH EVERY DAY; Duration: 90 Active Metoprolol Tartrate 25 MG TAKE 1 TABLET ONCE DAILY; Duration: 90 Active Losartan Potassium 25 MG 1 tab(s) orally once a day; Duration: 30 day(s) Active CoQ-10 100 MG 1 cap(s) orally once a day; Duration: 30 day(s) Active RANITIDINE 300 MG 1 TAB(S) ORALLY ONCE A DAY (AT BEDTIME) PRN 02/04/2016 Active Vascepa 1 GM TAKE 2 CAPSULES TWIC E DAILY; Duration: 90 days Not-Taking Multivitamin - 1 tablet Orally Once a day; Duration: 30 day(s) Active Vitamin E 1000 UNIT 1 cap(s) orally BID Active Aspirin 81 MG 1 tablet Orally Once a day; Duration: 30 day(s) Active Immunizations Vaccine Route Administration Date Status Comme nts Fluzone High Dose (65yr and older) IM Intramuscular 11/15/2024 Administered Prevnar (PCV20) IM Intramuscular 11/15/2024 Administered Problems Problem Type SNOMED Code ICD Code Onset Dates Problem Status W/U Status Risk Notes Problem Obese class II (165321198845 105) BMI 35.0-35.9,a dult (Z68.35) Active confirmed Vital Signs Blood pressure systolic 130 mm Hg 11/16/19 25 Blood pressure diastolic 80 mm Hg 025 Heart Rate 80 /min 11/15/2024 Height 60.50 in 11/15/2024 Weight 183.8 lbs 11/15/2024 BMI 35.3 kg/m2 11/15/2024 Encounters Encounter Location Date Provider Diagnosis [facility] [address] [facility] [address] [place] [address], [place] [phone] 11/15/2024 Sonal Chiu Adult general medica l examination Z00.00 ; Acquired hypothyroidism E03.9 ; Hyperlipidemia, unspecified hyperlipidemia E78.5 ; Hypertriglyceridemia E78.1 ; Pulmonary nodules R91.8 ; Encounter for immunization Z23 ; Essential hypertension I10 ; History of malignant neoplasm of right breast Z85.3 ; Osteopenia M85.80 and BMI 35.0-35.9,adult Z68.35 Assessments Encounter Date Diagnosis (ICD Code) Assessment Notes Treatment Notes Treatment Clinical Notes Section Notes 11/15/2024 Adult general medica l examination (ICD-10 - Z00.00) Patient instructed to return to office Annually for Annual Wellness Visits to include annual screenings of Pain assessment, Functional Ability assessment, Cognitive Ability assessment, Fall Risk assessment, Depression screening and Bladder control screening. 11/15/2024 Acquired hypothyroid ism (ICD-10 - E03.9) 11/15/2024 Hyperlipidemia, unspecified hyperlipidemia (ICD-10 - E78.5) 11/15/2024 Hypertriglyceridemia (ICD-10 - E78.1) Patient has not been taking fenofibrate. Will start on this. 11/15/2024 Pulmonary nodules (ICD-10 - R91.8) 11/15/2024 Encounter for immunization (ICD-10 - Z23) 11/15/2024 Essential hypertensi on (ICD-10 - I10) 11/15/2024 History of malignant neoplasm of right breast (ICD-10 - Z85.3) 11/15/2024 Osteopenia (ICD-10 - M85.80) 11/15/2024 BMI 35.0-35.9,adult (ICD-10 - Z68.35) Plan Of Treatment Medication Medication Name Sig Start Date Stop Date Notes Levothyroxine Sodium 100 MCG 1 tablet in the morning on an empty stomach Orally Once a day 11/15/2024 Fenofibrate 160 MG 1 tablet Orally Once a day 02/09/2024 Synthroid 75 MCG 1 tablet in the morn ing on an empty stomach Orally Once a day 02/09/2024 Treatment Notes Assessment Notes Adult general medical examination Patien t instructed to return to office Annually for Annual Wellness Visits to include annual screenings of Pain assessment, Functional Ability assessment, Cognitive Ability assessment, Fall Risk assessment, Depression screening and Bladder control screening. Hypertriglyceridemia Patient has not bee n taking fenofibrate. Will start on this. Next Appt Details Follow Up: As directed by , Reason: Progress Notes * Erika BURGOS LDOB: 8 (69 yo F)Acc No.[id number]:11/15/2024 Annual Wellness Visit Patient: Erika CASTLE Provider: NICOLÁS Gunn :1955 A ge:69 Y S ex:Female Date:11/15/2024 Address:[facility] [id number] Pcp:Iron Mcpherson Subjective: * Chief Complaints: * 1 . check up and Annual Wellness Visit. * HPI: H PI: Patient is here today for a scheduled check up a nd?a Medicare Annual Wellness Visit. See 11/14/2024 [facility] lab results in patient labs. C ardiology: c/o Blood Pressure Elevated P t sts she had a p ulmonary nodule before and sts she has not had a CT Scan in 1-2 years and sts she was wondering if she needed aother scan done or not. Pt also sts she would like to discuss her blood work that she had done yesterday. c/o Hyperlipidemia. * ROS: O PTHALMOLOGY: Negative for d enies issues with vision. * Medical History: H ypothyroidism-post surgical goiter, [...] ,Years: , Determination:. * Medications: T aking Aspirin 81 MG Tablet Delayed Release 1 [...] tab(s) orally once a day , Taking Fenofibrate 160 MG Tablet 1 tablet Orally Once a day , Taking Rosuvastatin Calcium 5 mg Tablet TAKE ONE TABLET BY MOUTH EVERY DAY , Taking Synthroid 75 MCG Tablet 1 tablet in the morning on an empty stomach Orally Once a day , Not-Taking Vascepa 1 GM Capsule TAKE 2 CAPSULES TWICE DAILY , Not-Taking Triamcinolone Acetonide 0.1 % Cream 1 application Externally Three times a day , Medication List reviewed and reconciled with the patient * Allergies: P enicillins, Sulfa Antibiotics, Erythromycin, Neosporin, Clindamycin: hives - Allergy. Objective: * Vitals: W t: 183.8, Temp: 98.6, BP: 130/80, HR: 80, O2 Sat: 98% on RA, Nurse: cami, Ht: 60.50, BMI:35.3. * Examination: G eneral Examination: General Appearance: [...] bilaterally. E xtremities: n o leg edema. * Physical Examination: G ENERAL: Pain Assessment: P ain level: 0, on a scale of 0 to 10 (10 being extreme pain). F unctional Status Assessment: P atient response to how often physical health interferes with daily activities: almost never Able to perform ADLs-including meal preparation, grocery shopping, housework, laundry, taking medications, or handling finances. Cognitive Status: Alert and oriented. Ambulation Status: Fully ambulatory. F all Risk Assessment: I ndependant in ambulation, adequate lighting in home. Patient has NOT fallen or had trouble walking within the past 12 months. D epression Screening: D enies depressed mood or anxiety. Describes emotional health as: calm/peaceful. B ladder Control Screening: D enies problems. Assessment: * Assessment: 1. A dult general medical examination - Z00.00 (Primary) 2 . A cquired hypothyroidism - E03.9 3 . H yperlipidemia, unspecified hyperlipidemia - E78.5 ? 4 . H ypertriglyceridemia - E78.1 5 . P ulmonary nodules - R91.8 6. E ncounter for immunization - Z23 7 . E ssential hypertension - I10 8 . H istory of malignant neoplasm of right breast - Z85.3 ? 9 . O steopenia - M85.80 1 0. B AL 35.0-35.9,adult - Z68.35 ? Plan: * Treatment: 2. A cquired hypothyroidism Stop Synthroid Tablet, 75 MCG, 1 tablet in the morning on an empty stomach, Orally, Once a day;?Start Levothyroxine Sodium Tablet, 100 MCG, 1 tablet in the morning on an empty stomach, Orally, Once a day, 90, Refills 0. 3. H ypertriglyceridemia Start Fenofibrate Tablet, 160 MG, 1 tablet, Orally, Once a day, 90, Refills 1. Notes: Patient has not been taking fenofibrate. Will start on this. 4. P ulmonary nodules I maging: CT Scan : Chest with IV contrast (Performed Date - 11/18/2024) m ultiple small pulmonary nodules bilaterally, recommend annual f/u * Immunizations: Fluzone High Dose (65yr and older) : 0.5 mL (Route: Intramuscular) given by CAMI Tamez on Left Deltoid (Encounter for immunization) Prevnar (PCV20) : 0.5 mL (Route: Intramuscular) given by CAMI Tamez on Right Deltoid (Encounter for immunization) * Procedure Codes: G 0438 ANNUAL WELLNES VST; PERSNL PPS INIT, G2211 Complex e/m visit add on, 1090F PRES/ABSN URINE INCON ASSESS, 3288F FALL RISK ASSESSMENT DOCD, 1170F FXNL STATUS ASSESSED, 1126F AMNT PAIN NOTED NONE PRSNT, 1159F MED LIST DOCD IN RCRD, 1003F LEVEL OF ACTIVITY ASSESS, 1036F TOBACCO NON-USER, 3017F COLORECTAL CA SCREEN DOC REV, G9899 Scrn willis perf rslts doc, G8399 PT W/DXA DOCUMENT [place] ORDER, 50728 PCV20 VACCINE IM, G8510 NEG SCR Depression PT NOT ELIG F/U/PLN DOC, G8950 PREHTN/HTN BP DOC INDCD F/U DOC, G8752 MOST RECENT SYSTOLIC BP < 140MM HG, G8754 MOST RECENT DIASTOLIC BP < 90MM HG, 3075F SYST BP GE 130 - 139MM HG, 3079F DIAST BP 80-89 MM HG * Preventive Medicine: Counseling: E motional health: E ncouraged to try connecting with family or friends to boost mood. B ladder control: D iscussed ways to control/manage leakage of urine. Exercise: A dvised to start, increase or maintain level of exercise/physical activity. I njury prevention: D iscussed fall prevention. Discussed need for cane/walker. Potential trip hazards discussed. Immunizations: P neumococcal r ecommended. I nfluenza r ecommended seasonally. Screening / Special Tests: M ammogram R ecent history: 03/21/24 negative. C olonoscopy R ecent history: 07/02/2018, Dr. Ramesh, nor,mal, hemorrhoids, repeat 10 years. B one mineral Density R ecent history: 07/01/2024, osteopenia. * Follow Up: A s directed by * Images: Billing Information: * Visit Code: 52964 Office Visit, Est Pt., Level 3. Modifiers: 25 * Procedure Codes: G0438 ANNUAL WELLNES VST; PERSNL PPS INIT. G2211 Complex e/m visit add on. 1090F PRES/ABSN URINE INCON ASSESS. 3288F FALL RISK ASSESSMENT DOCD. 1170F FXNL STATUS ASSESSED. 1126F AMNT PAIN NOTED NONE PRSNT. 1159F MED LIST DOCD IN RCRD. 1003F LEVEL OF ACTIVITY ASSESS. 1036F TOBACCO NON-USER. 3017F COLORECTAL CA SCREEN DOC REV. G9899 Scrn willis perf rslts doc. G8399 PT W/DXA DOCUMENT OR ORDER. 61613 PCV20 VACCINE IM. G8510 NEG SCR Depression PT NOT ELIG F/U/PLN DOC. G8950 PREHTN/HTN BP DOC INDCD F/U DOC. G8752 MOST RECENT SYSTOLIC BP < 140MM HG. G8754 MOST RECENT DIASTOLIC BP < 90MM HG. 3075F SYST BP GE 130 - 139MM HG. 3079F DIAST BP 80-89 MM HG. * Electronic signature of NICOLÁS Gatica on 02/11/2025 at 07:42 AM EST Sign off status: Pending * Provider: NICOLÁS Gunn Date: 0 11/15/2024 Generated for Koki murphy/Conrad/eTransmitting on: 1 04/14/2024 07:42 AM EST History and Physical Notes * HPI (History of Present Illness) Category Sub-Category Detail Notes Category Not es Cardiology Blood Pressure Elevated Pt sts s he had a pulmonary nodule before and sts she has not had a CT Scan in 1-2 years and sts she was wondering if she needed aother scan done or not. Pt also sts she would like to discuss her blood work that she had done yesterday Hyperlipidemia HPI Patient is here today for a [facility] check up and a Medicare Annual Wellness Visit. See 11/14/2024 [facility] lab results in patient labs Physical Examination Category Sub-Category Detail Notes Section Note s GENERAL Pain Assessment: Pain level: 0, on a scale of 0 to 10 (10 being extreme pain) Functional Status Assessment: Patient re sponse to how often physical health interferes with daily activities: almost neverAble to perform ADLs-including meal preparation, grocery shopping, housework, laundry, taking medications, or handling finances.Cognitive Status: Alert and oriented.Ambulation Status: Fully ambulatory Fall Risk Assessment: Independant in amb ulation, adequate lighting in home. Patient has NOT fallen or had trouble walking within the past 12 months Depression Screening: Denies depressed m ood or anxiety. Describes emotional health as: calm/peaceful Bladder Control Screening: Denies proble ms Examination Category Sub-Category Detail Notes Category Not [...]
--- OUTSIDE RECORDS SUMMARY | 2025-02-07 04:50 | XMS_ITS ---
Author Organization [facility] Address [address] [facility] [address] [facility] [address] [place] [id number] Care Team Providers Care Body Man Name Role Phone Iron Mcpherson Primary Care Provider Sonal Chiu [phone] REASON FOR VISIT Lab Order Encounters Encounter Location Date Provider Diagnosis [facility] [address] [facility] [address] [facility] [address] [place] [id number] 02/07/2025 Sonal Chiu Essential hypertensi on I10 ; Acquired hypothyroidism E03.9 and Hypertriglyceridemia E78.1 Assessments Encounter Date Diagnosis (ICD Code) Assessment Notes Treatment Notes Treatment Clinical Notes Section Notes 02/07/2025 Essential hypertensi on (ICD-10 - I10) 02/07/2025 Acquired hypothyroid ism (ICD-10 - E03.9) 02/07/2025 Hypertriglyceridemia (ICD-10 - E78.1) Plan Of Treatment Pending Test Test Name Order Date H-TSH 02/07/2025 H-Lipid Panel 02/07/2025 H-CMP 02/07/2025 H-T4 free 02/07/2025 Progress Notes * Erika BURGOS LDOB: (69 yo F)Acc No.[id number]:02/07/2025 Patient: Rosio ARGUETA Erika Johnson :1955 A ge:69 Y S ex:Female Address:[place] [address] Subjective: * Chief Complaints: * L ab Order * Medical History: * Surgical History: * Hospitalization/Major Diagno stic Procedure: * Medications: Objective: * Vitals: * Physical Examination: Assessment: * Assessment: 1. E ssential hypertension - I10 2 . A cquired hypothyroidism - E03.9 ? 3 . H ypertriglyceridemia - E78.1 Plan: * Treatment: 2. A cquired hypothyroidism L AB: H-TSH L AB: H-T4 free 3. H ypertriglyceridemia L AB: H-Lipid Panel * Procedure Codes: * true * Date: Generated for Koki murphy/Conrad/Monica on: 04/14/2024 07:41 AM EST
--- OUTSIDE RECORDS SUMMARY | 2025-02-11 07:42 | XMS_ITS | Patient Health Record ---
Author Organization [facility] Address [address] [facility] [address] [place] [phone] Care Team Providers Care Certified Dietary Manager Name Role Phone Iron Mcpherson Primary Care Provider Sonal Chiu Unavailable [phone] Allergies Allergen (clinical drug ingredient) Drug/Non Drug [...] Notes/Report: T4F 1.51 0.78-2.19 ng/dl H-TSH Reviewed date:11/15/2024 11:51:55 AM Interpretation:6.47 Performing Lab: Notes/Report: TSH 6.47 0.465-4.68 uIU/mL H-CBC Reviewed date:11/15/2024 11:51:55 AM Interpretation:WBC 4.4, [...] 0.1 0-0.2 K/mm3 NRBC# 0 IG# 0.01 H-Microalbumine/Creatinine Reviewed date:11/15/2024 11:51:55 AM Interpretation:Normal Performing Lab: Notes/Report: UCREAT 59 Not Estab. mg/dL Random urine reference range not established. 24 hour urine samples recommended. MICROALB 8.000 0-16.7 mg/L MALBCREAT 13.5 Units: mg/g creat Normal: 0 - 29 Moderately Increased: 30 - 300 Severely Increased: >300 H-Lipid Panel Reviewed date:11/15/2024 11:51:55 AM Interpretation:Trigs [...] HDL 36 40-60 mg/dl CHLHDL 9.2 1-3.5 H-CMP Reviewed date:11/15/2024 11:51:55 AM Interpretation:BUN 19 [...] AGRATIO 1.6 1.1-1.8 ALP 116 38-126 U/L H-T4 (Thyroxine) Reviewed date:11/15/2024 11:51:55 AM Interpretation:Normal Performing Lab: Notes/Report: T4 8.9 5.53-11.0 ug/dl H-TSH Reviewed date:11/14/2024 12:55:46 PM Interpretation: Performing Lab: Notes/Report: H-CBC Reviewed date:11/14/2024 12:55:58 PM Interpretation: Performing Lab: Notes/Report: H-Lipid Panel Reviewed date:11/14/2024 12:56:23 PM Interpretation: Performing Lab: Notes/Report: H-CMP Reviewed date:11/14/2024 12:56:36 PM Interpretation: Performing Lab: Notes/Report: H-T4 (Thyroxine) Reviewed date:11/14/2024 12:56:49 PM Interpretation: Performing Lab: Notes/Report: H-Microalbumine/Creatinine Reviewed date:11/14/2024 12:56:10 PM Interpretation: Performing Lab: Notes/Report: CT Scan : Chest with IV cont rast Reviewed date:11/27/2024 11:48:04 AM Interpretation:multiple small pulmonary nodules bilaterally, recommend annual f/u Performing Lab: Notes/Report: multiple small pulmonary nodules bilaterally, recommend annual f/u Bone density Reviewed date:07/17/2024 06:15:04 PM Interpretation:osteopenia, bilateral hips Performing Lab: Notes/Report: osteopenia, bilateral hips Bone density osteopenia, bilatera l hips Medications Medication SIG (Take, Route, Frequency, Duration) [...] Once a day; Duration: 30 day(s) Active Rosuvastatin Calcium 5 mg 1 tablet orall y once a day; Duration: 90 days Active Vitamin E 1000 UNIT 1 cap(s) orally BID Active Aspirin 81 MG 1 tablet Orally Once a day; Duration: 30 day(s) Active Triamcinolone Acetonide 0.1 % 1 application Externally Three times a day 01/25/2023 Not-Taking Vascepa 1 GM TAKE 2 CAPSULES TWIC [...] W/U Status Risk Notes Problem Essential hypertension (37936576) Essential hypertension (I10) Active confirmed Problem Solitary nodule of lung (707613446) Lung nodule (R91.1) Active confirmed Problem Hypertriglyceridemia (751041337) Hypertriglyceridemia (E78.1) Active confirmed Problem Osteopenia (489294448) Osteopenia (M85.80) Active confirmed Problem Screening for osteoporosis (828555276) Screening for osteoporosis (Z13.820) Active confirmed Problem Sciatica (75949197) Lumbago with sciatica, right side (M54.41) Active confirmed Problem Sciatica (62537908) Lumbago with sciatica, left side (M54.42) Active confirmed Problem Obese class II (971264028152519) BMI 35.0-35.9,adult (Z68.35) Active confirmed Problem Acquired hypothyroidism (914347836) Acquired hypothyroidism (E03.9) Active confirmed Problem Hyperlipidemia (85716324) Hyperlipidemia, unspecified hyperlipidemia (E78.5) Active confirmed Problem Bilateral carpal tunnel syndrome (57862673026596007) Bilateral carpal tunnel syndrome (G56.03) Active confirmed Problem Tonsil asymmetry (038833977) 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) Active confirmed Problem Paresthesia of finge r (027253000) Paresthesia of finger (R20.2) Active confirmed Problem Personal history of primary malignant neoplasm of breast (055121455) History of malignant neoplasm of right breast (Z85.3) Active confirmed Vital Signs Heart Rate 80 /min 11/15/2024 Blood pressure diastolic 80 mm Hg 11/15/2024 Height 60.50 in 11/15/2024 Blood pressure systolic 130 mm Hg 11/15/2024 Weight 183.8 lbs 11/15/2024 BMI 35.3 kg/m2 11/15/2024 Encounters Encounter Location Date Provider [facility] [address] [place] [id number] 05/17/2024 Sonal Chiu Hyperlipidemia, unsp ecified hyperlipidemia E78.5 and Acquired hypothyroidism E03.9 [facility] [address] [place] [id number] 11/15/2024 Sonal Chiu Adult general medica l examination Z00.00 ; Acquired hypothyroidism E03.9 ; Hyperlipidemia, unspecified hyperlipidemia E78.5 ; Hypertriglyceridemia E78.1 ; Pulmonary nodules R91.8 ; Encounter for immunization Z23 ; Essential hypertension I10 ; History of malignant neoplasm of right breast Z85.3 ; Osteopenia M85.80 and BMI 35.0-35.9,adult Z68.35 [facility] [address] [place] [id number] 05/20/2024 Sonal Chiu [facility] [address] [place], [place] [id number] 06/21/2024 Sonal Titody [facility] [address] [place], [place] [id number] 07/17/2024 Sonal Chiu [facility] [address] [place], [place] [id number] 08/14/2024 Iron Mcpherson [facility] [address] [place], [place] [id number] 09/19/2024 Sonal Aram Essential hypertensi on I10 ; Acquired hypothyroidism E03.9 and Hyperlipidemia, unspecified hyperlipidemia E78.5 [facility] [address] [place], [place] [id number] 11/15/2024 Sonal Chiu [facility] [address] [place], [place] [id number] 11/27/2024 Sonal Crowdy [facility] [address] [place], [place] [id number] 02/07/2025 Sonal Titody Essential hypertensi on I10 ; Acquired hypothyroidism E03.9 and Hypertriglyceridemia E78.1 Assessments Encounter Date Diagnosis (ICD Code) Assessment Notes Treatment Notes Treatment Clinical Notes Section Notes 05/17/2024 Acquired hypothyroid ism (ICD-10 - E03.9) [...] assessment, Depression screening and Bladder control screening. 02/07/2025 Essential hypertensi on (ICD-10 - I10) 02/07/2025 Acquired hypothyroid ism (ICD-10 - E03.9) 11/15/2024 Hyperlipidemia, unspecified hyperlipidemia (ICD-10 - E78.5) 09/19/2024 Acquired hypothyroid ism (ICD-10 - E03.9) 09/19/2024 Hyperlipidemia, unspecified hyperlipidemia (ICD-10 - E78.5) 11/15/2024 Hypertriglyceridemia (ICD-10 - E78.1) Patient has not been taking fenofibrate. Will start on this. 02/07/2025 Hypertriglyceridemia (ICD-10 - E78.1) 11/15/2024 Pulmonary nodules (ICD-10 - R91.8) 11/15/2024 Encounter for immunization (ICD-10 - Z23) 11/15/2024 Essential hypertensi on (ICD-10 - I10) 11/15/2024 History of malignant neoplasm of right breast (ICD-10 - Z85.3) 11/15/2024 Osteopenia (ICD-10 - M85.80) 11/15/2024 BMI 35.0-35.9,adult (ICD-10 - Z68.35) Plan Of Treatment Pending Test Test Name Order Date H-TSH 02/07/2025 H-Lipid Panel 02/07/2025 H-CMP 02/07/2025 H-CMP 03/17/2021 H-T4 free 02/07/2025 Insurance Providers Payer Name Payer Address Payer Phone Subscriber Number Group Number Insured Name Patient Relationship to Insured Coverage Start Date Coverage End Date [employer] (MEDICAR E) [address] [address] [place] [phone] [id number] Erika BURGOS Self - patient is the [...]
--- OUTSIDE RECORDS SUMMARY | 2025-02-11 07:42 | XMS_ITS | Clinical Summary ---
[facility] Organization [facility] Address [address] [place] [address] Care Team Providers Care Digital Printer Operator Name Role Phone Abraham Avilez MD Primary Care Provider [phone] Social History Tobacco Use Types Packs/Day Years [...] to Health Maintenance Insurance R Care Teams Digital Printer Operator Relationship Specialty Start Date End Date Abraham Avilez MD [address] [facility] [address] [place] [id number] PCP - General Family Medicine 03/14/18
[2025-02-11 08:43] LABS: Albumin Level 4.5 g/dl (3.5-5.0); Chloride 101 mmol/L (98-107); Potassium 4.9 mmoL/L (3.5-5.1); Sodium 138 mmol/L (136-145)
[2025-02-11 08:46] LABS: Alanine Aminotransferase 23 U/L (12-78); Albumin/Globulin Ratio 1.7 (1.1-1.8); Alkaline Phosphatase 122 U/L (38-126); Anion Gap 12.9 mEq/L (5-15); Aspartate Amino Transferase 30 U/L (14-36); Bilirubin,Total 0.5 mg/dl (0.2-1.3); Blood Urea Nitrogen 24 mg/dl (7-17); Calcium 9.7 mg/dl (8.4-10.2); Carbon Dioxide 29 mmol/L (22.0-30.0); Cholesterol 318 mg/dl (140-200); Creatinine,Serum 0.80 mg/dl (0.52-1.04); Estimated Glomerular Filt Rate 72 ml/min (>60); GFR (African American) 87 ML/MIN (>60); Globulin 2.6 g/dL (1.3-3.2); Glucose 88 mg/dl (74-100); Total Protein,Serum 7.1 g/dl (6.3-8.2)
[2025-02-11 08:47] LABS: HDL Cholesterol 42 mg/dl (40-60)
[2025-02-11 09:08] LABS: Triglycerides 745 mg/dl (30-150)
[2025-02-11 09:11] LABS: Free T4 (Free Thyroxine) 1.46 ng/dl (0.78-2.19)
[2025-02-11 09:18] LABS: Thyroid Stimulating Hormone 0.59 uIU/mL (0.465-4.68)
== END 2025-02-11 23:59 | disposition home or self-care (01) ==
LOC: LAB 07:40
PROVIDERS: PCP Physician Assistant; Visit Provider Physician Assistant
DX: E78.1 Pure hyperglyceridemia (principal); E03.9 Hypothyroidism, unspecified; I10 Essential (primary) hypertension
CPT/HCPCS: 36415; 80053; 80061; 84439; 84443